=== PATIENT | female | born 1980 | race Caucasian/White ===

== ENCOUNTER 2017-07-31 10:56 | Emergency (ER) | payer MEDICAID ==
[2017-07-31 11:06] VITALS: BP 151/92
--- NOTE | 2017-07-31 12:09 | ED Physician Documentation ---
PD HPI HEENT FB - Chief complaint Chief Complaint: Heent - History obtained from History obtained from: Patient - History of Present Illness Timing - onset: Other (She has a long history of nasal polyps, multiple surgeries for same. They slowly grow back and as they grow back she gets congested and she gets severe headaches. Over the last months she has developed facial pain especially on the right from nasal polyps. She congested from allergies but does not feel sick per se, no fevers.) Review of Systems Constitutional: denies: Fever, Chills, Myalgias Ears: denies: Loss of hearing, Ear pain, Drainage/discharge Nose: reports: Rhinorrhea / runny nose, Sinus pressure / pain. 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 : None HEENT: None, Other Psych: None Musculoskeletal: None Derm: None - Past Surgical History Past Surgical History: Yes /MANAGER MERCHANDISING: Tubal ligation HEENT: Other - Present Medications Home Medications: Ambulatory Orders Medication Instructions Recorded Confirmed Cetirizine [ZyrTEC] 10 07/31/17 HYDROcod/ACETAM 5/325 [[place] 5/325] 1 - 2 ea PO Q6H PRN #15 tablet 07/31/17 Varenicline Tartrate [Chantix] 07/31/17 predniSONE [Deltasone] 20 mg PO [id number] #21 tab 07/31/17 - Allergies Allergies/Adverse Reactions: Allergies Allergy/AdvReac Type Severity Reaction Status Date / Time aspirin Allergy Severe Anaphylaxis Verified 07/31/17 11:06 NSAIDS (Non-Steroidal Allergy Severe Anaphylaxis Verified 07/31/17 11:06 Anti-Inflamma varenicline tartrate * Allergy Severe Blisters Verified 07/31/17 11:06 [From Chantix] - Social History Does the pt smoke?: Yes Smoking Status: Current every day smoker Does the pt drink ETOH?: No Does the pt have substance abuse?: No - Immunizations Immunizations are current?: Yes - POLST Patient has POLST: No PD ED PE NORMAL - Vitals Vital signs reviewed: Yes - General General: Alert and oriented X 3, No acute distress - HEENT HEENT: Other (She is sniffily and clearly has occlusive nasal polyps with mild facial swelling over the right nasal bridge. I cannot see any passageway for air or secretions on the right really. There is a small passageway for air on the left.) - Neck Neck: Supple, no meningeal sign, No bony TTP - Neuro Neuro: Alert and oriented X 3, Normal speech Results - Vitals Vitals: Vital Signs - 24 hr 07/31/17 11:03 Temperature 36.5 C Heart Rate 98 Respiratory 16 Rate Blood Pressure 151/92 H O2 Saturation 99 Oxygen O2 Source Room air Departure - Departure Disposition: Home, Self Care Clinical Impression: Nasal polyposis Condition: Good Record reviewed to determine appropriate education?: Yes Prescriptions: HYDROcod/ACETAM 5/325 [[place] 5/325] 1 - 2 ea PO Q6H PRN #15 tablet PRN Reason: Pain predniSONE [Deltasone] 20 mg PO [id number] #21 tab Comments: Return if worse or if new symptoms develop., Follow-up with an ear nose and throat physician, the closest is in [place], there are number is [phone]. Do not drink or drive while taking narcotic pain medication. Note that many narcotic pain relievers also contain Tylenol/acetaminophen. Please ensure that your total dose of acetaminophen from all sources does not exceed 3 g (3000 mg) per day. You may get constipated while on this medication. Take a stool softener such as Colace twice a day while you are on it. Also add an [id number] laxative such as senna or MiraLAX on any day that you do not have a bowel movement. If you received a narcotic pain medication or sedative while in the emergency department, do not drive for the next 24 hours. Your blood pressure was elevated today on check into the emergency department. This does not mean that you have hypertension, it is a common phenomenon to come to the emergency department and have elevated blood pressure. I recommend that you see your primary care physician within the week to have it rechecked when you are feeling better.
== END 2017-07-31 12:40 | disposition home or self-care (01) ==
LOC: ED 10:56
DX: J33.9 Nasal polyp, unspecified (principal); R03.0 Elevated blood-pressure reading, without diagnosis of hypertension; K21.9 Gastro-esophageal reflux disease without esophagitis; Z87.11 Personal history of peptic ulcer disease; F17.200 Nicotine dependence, unspecified, uncomplicated
CPT/HCPCS: 99283

== ENCOUNTER 2018-01-30 08:00 | Outpatient (CLI) | payer MEDICAID ==
[2018-01-30 12:30] LABS: BILIRUBIN,URINE NEGATIVE (NEGATIVE); GLUCOSE, URINE (UA) NEGATIVE (NEGATIVE); KETONES,URINE (UA) NEGATIVE (NEGATIVE); LEUKOCYTE ESTERASE, URINE SMALL (NEGATIVE); NITRITE,URINE NEGATIVE (NEGATIVE); OCCULT BLOOD,URINE TRACE-INTA (NEGATIVE); PROTEIN,URINE NEGATIVE (NEGATIVE); UROBILINOGEN,URINE 0.2 (NORMAL) E.U./dL (NORMAL)
[2018-01-30 12:53] LABS: BACTERIA,URINE None Seen /HPF (None Seen); CLARITY,URINE CLEAR (CLEAR); RBC,URINE 0-5 /HPF (0-5); SQUAMOUS EPITHELIAL CELL,UR FEW Squamous (<= Few)
== END 2018-01-30 08:01 | disposition home or self-care (01) ==
LOC: LAB.R 08:00
PROVIDERS: ATTEND Physician Assistant Medical
DX: R30.0 Dysuria (principal)
CPT/HCPCS: 81001; 87086

== ENCOUNTER 2018-02-09 10:18 | Emergency (ER) | payer MEDICAID ==
[2018-02-09] MEDS ORDERED: LORazepam 2 MG/ML VIAL ONE (10:40)
[2018-02-09] MEDS ORDERED: LORazepam 2 MG/ML VIAL IM STA (10:41)
--- NOTE | 2018-02-09 10:44 | ED Physician Documentation ---
PD HPI CHEST PAIN - Stated complaint Stated Complaint: CHEST PX/ARM WEAKNESS - Chief complaint Chief Complaint: Cardiac - History obtained from History obtained from: Patient, Friend - History of Present Illness Timing - onset: How many days ago (3) Timing - onset during: Rest Timing - duration: Days (3) Timing - details: Gradual onset, Still present, Waxing and waning Quality: Pressure, Tightness Location: Substernal Radiation: Left upper extremity, Right upper extremity Improved by: Rest Associated symptoms: Shortness of air Similar symptoms before: Has not had sx before Recently seen: Not recently seen - Additional information Additional information: 37-year-old female has developed some chest pain substernal about 3 days ago and she attributed this to some shortness of breath as well. She has become anxious this morning and has come to the emergency department with central chest pain radiating to both arms. Review of Systems Constitutional: denies: Fever, Chills, Myalgias Eyes: denies: Decreased vision Ears: denies: Ear pain Nose: denies: Rhinorrhea / runny nose, Congestion Throat: denies: Sore throat Cardiac: reports: Chest pain / pressure. denies: Palpitations Respiratory: reports: Dyspnea. 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 HEENT: Other - Present Medications Home Medications: Ambulatory Orders Medication Instructions Recorded Confirmed Albuterol Sulf [Ventolin Hfa 1 - 2 puffs INH Q4HR PRN #1 inhaler 02/09/18 Inhaler] diphenhydrAMINE [Benadryl] 25 mg PO ONCE 02/09/18 02/09/18 predniSONE [Deltasone] 10 mg PO DAILY #26 tablet 02/09/18 - Allergies Allergies/Adverse Reactions: Allergies Allergy/AdvReac Type Severity Reaction Status Date / Time aspirin Allergy Severe Anaphylaxis Verified 02/09/18 10:24 NSAIDS (Non-Steroidal Allergy Severe Anaphylaxis Verified 02/09/18 10:24 Anti-Inflamma varenicline tartrate * Allergy Severe Blisters Ver[facility] 02/09/18 10:24 [facility] - Social History Does the pt smoke?: Yes Smoking Status: Current every day smoker Does the pt drink ETOH?: No Does the pt have substance abuse?: No - Immunizations Immunizations are current?: Yes - POLST Patient has POLST: No PD ED PE NORMAL - Vitals Vital signs reviewed: Yes (hypertensive ) - General General: Alert and oriented X 3, Well developed/nourished, Other (The patient is hyperventilating and apppears acutely anxious. ) - HEENT HEENT: Atraumatic, PERRL, EOMI - Neck Neck: Supple, no meningeal sign - Cardiac Cardiac: RRR, No murmur - Respiratory Respiratory: Clear bilaterally, Other (hyperventilating. ) - Abdomen Abdomen: Soft, Non tender - Back Back: No CVA TTP, No spinal TTP - Derm Derm: Normal color, Warm and dry, No rash - Extremities Extremities: No deformity, No edema - Neuro Neuro: Alert and oriented X 3, gauge checker 2-12 intact, No motor deficit, No sensory deficit, Normal speech Eye Opening: Spontaneous Motor: Obeys Commands Verbal: Oriented GCS Score: 15 - Psych Psych: Normal affect, Other (mood is anxoius. ) Results - Vitals Vitals: Vital Signs - 24 hr 02/09/18 02/09/18 02/09/18 10:20 11:25 13:10 Temperature 36.8 C Heart Rate 98 85 74 Respiratory 16 20 16 Rate Blood Pressure 146/107 H 134/82 H 125/72 O2 Saturation 99 98 96 02/09/18 02/09/18 15:19 15:24 Temperature 36.8 C Heart Rate 90 79 Respiratory 18 15 Rate Blood Pressure O2 Saturation 100 Oxygen O2 Source Room air - EKG (time done) 1026 Rate: Rate (enter#) (104) Rhythm: Sinus tachycardia Ischemia: Normal ST segments Compare to prior EKG: Old EKG unavailable Computer interpretation: Disagree with computer (The computer reads afib on a tracing with a lot of artifact from hyperventilation. The rhythm is clearly sinus. ) 1303 Rate: Rate (enter#) (73) Rhythm: NSR Compare to prior EKG: Changed from prior EKG (STP earlier today rate has decreased) Computer interpretation: Agree with computer - Labs Labs: Laboratory Tests 02/09/18 02/09/18 02/09/18 11:05 11:05 11:05 WBC 15.9 H RBC 4.55 Hgb 13.9 Hct 40.4 MCV 88.9 MCH 30.5 MCHC 34.3 RDW 13.4 Plt Count 273 MPV 7.6 L Neut # (Auto) 10.9 H Lymph # (Auto) 4.1 H [place] # (Auto) 0.6 Eos # (Auto) 0.3 Baso # (Auto) 0.0 Absolute Nucleated RBC 0.01 Nucleated RBC % 0.0 D-Dimer Sodium 136 Potassium 3.7 Chloride 101 Carbon Dioxide 25 Anion Gap 10.0 BUN 14 Creatinine 0.8 Estimated GFR (MDRD) 80 L Glucose 124 H Calcium 9.1 Total Bilirubin 0.3 AST 23 ALT 32 Alkaline Phosphatase 78 Troponin I 0.04 Total Protein 7.3 Albumin 4.0 Globulin 3.3 Albumin/Globulin Ratio 1.2 Lipase 27 02/09/18 02/09/18 11:35 13:13 WBC RBC Hgb Hct MCV MCH MCHC RDW Plt Count MPV Neut # (Auto) Lymph # (Auto) [place] # (Auto) Eos # (Auto) Baso # (Auto) Absolute Nucleated RBC Nucleated RBC % D-Dimer < 200.0 L Sodium Potassium Chloride Carbon Dioxide Anion Gap BUN Creatinine Estimated GFR (MDRD) Glucose Calcium Total Bilirubin AST ALT Alkaline Phosphatase Troponin I < 0.04 Total Protein Albumin Globulin Albumin/Globulin Ratio Lipase - Rads (name of study) CT angio chest Radiology: Prelim report reviewed (Impression: 1. No CT evidence of pulmonary embolism. 2 Lungs clear except for some minimal lower lobe atelectasis/scarring.), EMP read indepedently, See rad report PD MEDICAL DECISION MAKING - ED course Complexity details: reviewed old records, reviewed results, re-evaluated patient, considered differential, d/w patient, d/w family ED course: 37-year-old female with a history of asthma is coming today with acute anterior chest pain radiating to both arms. She has had some of this pain over the past 3 days and today the pain is significantly worse and she is become anxious about it. She comes into the emergency department hyperventilating and feeling that she cannot breathe. Her presentation is dramatic and she is much improved after 2mg of ativan IM. Initial diagnostics are unremarkable with normal EKG, trop X 2 and CXR. I suspect that her pain is related to subclinical asthma and related and chest wall pain. A CT Ango of the chest is obtained which does demonstrate some atelectasis and with this information she is administered dexamethasone 10 mg orally and a DuoNeb with pre-and post peak flows. The patient has some relief with the duoneb treatment and is able to give further history about her polyps and these are bothering her more than usual. We will put her on a course of prednisone and have her follow up with ENT. - Sepsis Event Vital Signs: Vital Signs - 24 hr 02/09/18 02/09/18 02/09/18 10:20 11:25 13:10 Temperature 36.8 C Heart Rate 98 85 74 Respiratory 16 20 16 Rate Blood Pressure 146/107 H 134/82 H 125/72 O2 Saturation 99 98 96 02/09/18 02/09/18 15:19 15:24 Temperature 36.8 C Heart Rate 90 79 Respiratory 18 15 Rate Blood Pressure O2 Saturation 100 Oxygen O2 Source Room air Departure - Departure Disposition: 01 Home, Self Care Clinical Impression: Nasal polyposis, Chest wall pain Condition: Stable Instructions: Polyps Nasal Tx, ED Strain Chest Wall Follow-Up: Zina Hunter DNP [Primary Care Provider] - [facility] [Provider Group] Prescriptions: Albuterol Sulf [Ventolin Hfa Inhaler] 1 - 2 puffs INH Q4HR PRN #1 inhaler PRN Reason: Shortness Of Air/Wheezing predniSONE [Deltasone] 10 mg PO DAILY #26 tablet Comments: Today it appears the pain you are having your chest is related to not being able to breathe well. The prednisone should help a lot with this and I recommend that you try nasacort for your polyps.
[2018-02-09 11:19] LABS: BASOPHILS % (AUTO) 0.2 %; EOSINOPHILS # (AUTO) 0.3 10^3/uL (0.0-0.7); EOSINOPHILS % (AUTO) 1.9 %; HGB - HEMOGLOBIN 13.9 g/dL (12.0-16.0); LYMPHOCYTES # (AUTO) 4.1 10^3/uL (1.5-3.5); LYMPHOCYTES % (AUTO) 25.6 %; MEAN CORPUSCULAR HEMOGLOBIN 30.5 pg (27.0-31.0); MEAN CORPUSCULAR HGB CONC 34.3 g/dL (32.0-36.0); MEAN CORPUSCULAR VOLUME 88.9 fL (81.0-99.0); MEAN PLATELET VOLUME 7.6 fL (7.9-10.8); MONOCYTES # (AUTO) 0.6 10^3/uL (0.0-1.0); MONOCYTES % (AUTO) 3.6 %; NEUTROPHILS # (AUTO) 10.9 10^3/uL (1.5-6.6); NEUTROPHILS % (AUTO) 68.7 %; PLT - PLATELET COUNT 273 10^3/uL (130-450); RED BLOOD COUNT 4.55 10^6/uL (4.20-5.40); RED CELL DISTRIBUTION WIDTH 13.4 % (12.0-15.0); WHITE BLOOD COUNT 15.9 x10^3/uL (4.8-10.8)
[2018-02-09 11:34] LABS: ALBUMIN/GLOBULIN RATIO 1.2 (1.0-2.2); BILIRUBIN,TOTAL 0.3 mg/dL (0.2-1.0); CALCIUM 9.1 mg/dL (8.5-10.3); CREATININE 0.8 mg/dL (0.4-1.0); TOTAL PROTEIN 7.3 g/dL (6.7-8.2)
[2018-02-09 13:12] VITALS: BP 125/72
--- NOTE | 2018-02-09 13:32 | XRAY Report ---
Reason: chest pain Procedure Date: 02/09/2018 Accession Number: [id number] / [id number] Procedure: XR - Chest 2 View X-Ray CPT Code: 76699 FULL RESULT: EXAM: CHEST RADIOGRAPHY EXAM DATE: 02/09/2018 01:24 PM. CLINICAL HISTORY: Chest pain. COMPARISON: XR ACUTE ABDOMEN SERIES 03/23/2009 7:55 PM. TECHNIQUE: 2 views. FINDINGS: Lungs/Pleura: No focal opacities evident. No pleural effusion. No pneumothorax. Normal volumes. Mediastinum: Heart and mediastinal contours are unremarkable. Other: None. IMPRESSION: Normal 2-view chest radiography for age and body habitus. RADIA
[2018-02-09] MEDS ORDERED: IOPAMIDOL-300 100 ML VIAL ONE (14:21)
[2018-02-09] MEDS ORDERED: IOPAMIDOL-300 100 ML VIAL IVP ONE (14:51)
--- NOTE | 2018-02-09 15:07 | CT Report ---
Reason: anterior chest pain soa Procedure Date: 02/09/2018 Accession Number: [id number] / [id number] Procedure: CT - Chest Angio (PE) CPT Code: FULL RESULT: EXAM: CT ANGIOGRAM CHEST EXAM DATE: 02/09/2018 02:50 PM. CLINICAL HISTORY: Anterior chest pain and shortness of breath. COMPARISON: CHEST 2 VIEW 02/09/2018 1:16 PM. TECHNIQUE: Routine helical imaging was performed through the chest in the pulmonary arterial phase. IV Contrast: 100 cc Isovue-300. Reconstructions: Coronal 3-D MIP reconstructions.Sagittal and coronal. In accordance with CT protocol optimization, one or more of the following dose reduction techniques were utilized for this exam: automated exposure control, adjustment of mA and/or KV based on patient size, or use of iterative reconstructive technique. FINDINGS: Pulmonary Arteries: Diagnostic quality: Adequate through the segmental arteries. No evidence for acute or chronic pulmonary emboli. RV/LV is within normal limits. There is no interventricular septal bowing. There is no reflux of contrast material in the IVC. Lungs/Pleura: Minimal pulmonary blebs in the lung bases. Minimal lower lobe atelectasis /scarring. No focal infiltrate or effusion. Mediastinum: Normal. No cardiac enlargement or adenopathy. Thoracic Aorta: Unremarkable. Upper Abdomen: Unremarkable. Other: None. IMPRESSION: 1. No CT evidence of pulmonary embolism. 2. Lungs clear except for some minimal lower lobe atelectasis/scarring. RADIA
[2018-02-09] MEDS ORDERED: IPRATROPIUM/ALBUTEROL 3 ML NEB INH STA (15:14)
[2018-02-09] MEDS ORDERED: DEXAMETHASONE 10 MG/ML VIAL PO STA (15:14)
== END 2018-02-09 16:18 | disposition home or self-care (01) ==
LOC: ED 10:18
DX: J33.9 Nasal polyp, unspecified (principal); R07.89 Other chest pain; R06.02 Shortness of breath; R00.0 Tachycardia, unspecified; F17.200 Nicotine dependence, unspecified, uncomplicated
CPT/HCPCS: 36415; 71046; 71275; 80053; 83690; 84484; 85025; 85379; 93005; 93010; 94640; 96372; 99283; 99284; J2060; Q9967; 87275; 87276

== ENCOUNTER 2018-02-10 19:03 | Emergency (ER) | payer MEDICAID ==
--- NOTE | 2018-02-10 20:58 | ED Physician Documentation ---
PD HPI SKIN - Stated complaint Stated Complaint: HOTFACE/RASH POSS ALLERGIC RACT - Chief complaint Chief Complaint: Allergic Rx - History obtained from History obtained from: Patient - History of Present Illness Timing - onset: Yesterday (started feeling flush and some itching while in ED and just after. Persistent feeling of flush/hot overnight, and having itching feeling today, worse this evening. Feeling wheezing last couple of hours.) Timing - duration: Days (1) Timing - details: Gradual onset, Still present Location: Bodywide (feeling of itching, but no rash per se.) Associated symptoms: Dyspnea. No: Fever, Myalgias, Headache, N/V/D Contributing factors: Other (seen in ER yesterday with CT with contrast, and also dose ativan. No NSAIDs.) Similar symptoms before: Has not had sx before Recently seen: Emergency Dept Review of Systems Constitutional: denies: Fever, Chills Nose: denies: Rhinorrhea / runny nose, Congestion Throat: denies: Sore throat Cardiac: denies: Chest pain / pressure Respiratory: reports: Dyspnea, Wheezing. 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 HEENT: Other - Present Medications Home Medications: Ambulatory Orders Medication Instructions Recorded Confirmed Albuterol Sulf [Ventolin Hfa 1 - 2 puffs INH Q4HR PRN #1 inhaler 02/09/18 Inhaler] diphenhydrAMINE [Benadryl] 25 mg PO ONCE 02/09/18 02/09/18 predniSONE [Deltasone] 10 mg PO DAILY #26 tablet 02/09/18 - Allergies Allergies/Adverse Reactions: Allergies Allergy/AdvReac Type Severity Reaction Status Date / Time aspirin Allergy Severe Anaphylaxis Verified 02/09/18 10:24 NSAIDS (Non-Steroidal Allergy Severe Anaphylaxis Verified 02/09/18 10:24 Anti-Inflamma varenicline tartrate * Allergy Severe Blisters Verified 02/09/18 10:24 [From Chantix] - Social History Does the pt smoke?: Yes Smoking Status: Current every day smoker Does the pt drink ETOH?: No Does the pt have substance abuse?: No - Immunizations Immunizations are current?: Yes - POLST Patient has POLST: No PD ED PE NORMAL - Vitals Vital signs reviewed: Yes - General General: Alert and oriented X 3, Well developed/nourished, Other (appears uncomfortable and having quicker breathing, and forceful expiration with wheezing. ) - HEENT HEENT: Moist mucous membranes, Pharynx benign (no visible edema of throat nor uvula. ) - Neck Neck: Supple, no meningeal sign, No adenopathy - Cardiac Cardiac: RRR, No murmur - Respiratory Respiratory: No: Clear bilaterally (upper airway wheezing sounds with expiration. Peripheral not hearing wheezes. ) Results - Vitals Vitals: Vital Signs - 24 hr 02/10/18 02/10/18 02/10/18 19:05 21:05 21:30 Temperature 36.8 C 36.7 C Heart Rate 101 H 100 103 H Respiratory 18 22 29 H Rate Blood Pressure 147/93 H O2 Saturation 95 99 02/10/18 02/10/18 21:40 22:05 Temperature 36.8 C Heart Rate 95 86 Respiratory 24 16 Rate Blood Pressure 153/86 H O2 Saturation 98 Oxygen O2 Source Room air PD MEDICAL DECISION MAKING - ED course Complexity details: re-evaluated patient (improved with meds and neb treatment. Seems delayed for dye reaction from yesterday but could be. Unlikely from Ativan yesterday. No other new meds nor foods. ), considered differential (having feeling of flushing and itching, without obvious hives. Has expiratory wheezing with labored breathing in upper airway. No peripheral wheezing heard. ), d/w patient - Sepsis Event Vital Signs: Vital Signs - 24 hr 02/10/18 02/10/18 02/10/18 19:05 21:05 21:30 Temperature 36.8 C 36.7 C Heart Rate 101 H 100 103 H Respiratory 18 22 29 H Rate Blood Pressure 147/93 H O2 Saturation 95 99 02/10/18 02/10/18 21:40 22:05 Temperature 36.8 C Heart Rate 95 86 Respiratory 24 16 Rate Blood Pressure 153/86 H O2 Saturation 98 Oxygen O2 Source Room air Departure - Departure Disposition: 01 Home, Self Care Clinical Impression: Allergic reaction Qualifiers: Encounter type: initial encounter Qualified Code(s): T78.40XA - Allergy, unspecified, initial encounter Condition: Stable Record reviewed to determine appropriate education?: Yes Instructions: ED Allergic Reaction General Other Follow-Up: Zina Hunter DNP [Primary Care Provider] - Comments: Presume this was a delayed reaction to the iodine though other triggers may have caused it. At this point continue the prednisone that you had been taking. Add cetirizine antihistamine daily for the next week. Use Benadryl every 4-6 hours if needed for some itchiness. Recheck if not fully improved however over the next day or 2 at most. If you have persistent symptoms, the consideration would be a new allergy to something else currently inapparent. Discharge Date/Time: 02/10/18 22:45
[2018-02-10] MEDS ORDERED: DEXAMETHASONE 10 MG/ML VIAL IVP STA (21:12)
[2018-02-10] MEDS ORDERED: ALBUTEROL NEB 2.5 MG/3 ML INH STA (21:12)
[2018-02-10] MEDS ORDERED: diphenhydrAMINE INJ 50 MG/ML VIAL IVP STA (21:12)
[2018-02-10] MEDS ORDERED: FAMOTIDINE 20 MG/2 ML VIAL IVP STA (21:13)
[2018-02-10] MEDS ORDERED: RACEPINEPHRINE 2.25% NEB INH ONE (21:26)
[2018-02-10] MEDS ORDERED: RACEPINEPHRINE 2.25% NEB INH STA (21:30)
[2018-02-10 22:07] VITALS: BP 153/86
[2018-02-10] MEDS ORDERED: CETIRIZINE 10 MG TABLET PO STA (22:36)
== END 2018-02-10 22:45 | disposition home or self-care (01) ==
LOC: ED 19:03
DX: T78.40XA Allergy, unspecified, initial encounter (principal); X58.XXXA Exposure to other specified factors, initial encounter; F17.200 Nicotine dependence, unspecified, uncomplicated; R06.2 Wheezing
CPT/HCPCS: 94640; 96374; 96375; 99282; 99283; A9270; J1200

== ENCOUNTER 2018-05-16 13:27 | Emergency (ER) | payer MEDICAID ==
[2018-05-16] MEDS ORDERED: IPRATROPIUM/ALBUTEROL 3 ML NEB INH STA ×2 (14:15→14:39)
[2018-05-16] MEDS ORDERED: predniSONE 20 MG TABLET PO STA (14:16)
--- NOTE | 2018-05-16 14:20 | ED Physician Documentation ---
PD HPI URI - Stated complaint Stated Complaint: SOA - Chief complaint Chief Complaint: Resp - History obtained from History obtained from: Patient - History of Present Illness Timing - onset: Today Timing details: Gradual onset, Still present Pain level max: 0 Pain level now: 0 Associated symptoms: Nasal congestion, Dry cough. No: Fever, Chills, Sweats, Ear pain, Sore throat, Chest pain, Dyspnea, Bilateral edema Contributing factors: COPD / asthma. No: Sick contact Improves by: MDI/nebulizer Worsened by: Other Similar symptoms before: Work up / diagnostics, Has not had sx before Recently seen: Not recently seen - Additional information Additional information: 37-year-old female with history of asthma, Pneumonia last February and treated with Z-Neymar and nasal polyps here with complaint of coughing and runny nose since yesterday and today shortness of breath and was wheezing. Patient stated she took her inhaler but did not help. Patient states she has bilateral nasal polyps which also affects her breathing. She had seen an ENT and there is plan of surgery soon.Patient denies any control pills. Patient states was in [place] for a few days and had returned last May 08. Denies any immobility. Review of Systems Ten Systems: 10 systems reviewed and negative Constitutional: denies: Fever, Chills, Myalgias Nose: reports: Rhinorrhea / runny nose, Congestion Throat: denies: Sore throat Cardiac: denies: Chest pain / pressure Respiratory: reports: Dyspnea, Cough, Wheezing. 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 HEENT: Other - Present Medications Home Medications: Ambulatory Orders Medication Instructions Recorded Confirmed Albuterol Sulf [Ventolin Hfa 1 - 2 puffs INH Q4HR PRN #1 inhaler 02/09/18 Inhaler] predniSONE [Prednisone] 40 mg PO DAILY 4 Days #8 tablet 05/16/18 - Allergies Allergies/Adverse Reactions: Allergies Allergy/AdvReac Type Severity Reaction Status Date / Time aspirin Allergy Severe Anaphylaxis Verified 05/16/18 13:42 NSAIDS (Non-Steroidal Allergy Severe Anaphylaxis Verified 05/16/18 13:42 Anti-Inflamma varenicline tartrate * Allergy Severe Blisters Verified 05/16/18 13:42 [From Chantix] - Social History Does the pt smoke?: Yes Smoking Status: Current every day smoker Does the pt drink ETOH?: No Does the pt have substance abuse?: No - Immunizations Immunizations are current?: Yes - POLST Patient has POLST: No PD ED PE NORMAL - Vitals Vital signs reviewed: Yes - General General: Alert and oriented X 3, No acute distress, Well developed/nourished - HEENT HEENT: Moist mucous membranes, Other (Positive erythema of posterior pharynx and uvula. No exudate.Bilateral nares with clear secretions. Left small nasal polyps noted) - Neck Neck: Supple, no meningeal sign - Cardiac Cardiac: RRR, No murmur - Respiratory Respiratory: No respiratory distress, Other (Bilateral expiratory wheezing, scattered.) - Abdomen Abdomen: Normal bowel sounds, Soft, Non tender, Non distended - Derm Derm: Normal color, Warm and dry - Extremities Extremities: No deformity, No tenderness to palpate, Normal ROM s pain, No edema - Neuro Neuro: Alert and oriented X 3 - Psych Psych: Normal mood, Normal affect Results - Vitals Vitals: Vital Signs - 24 hr 05/16/18 05/16/18 05/16/18 13:39 14:21 15:00 Temperature 36.8 C Heart Rate 94 90 86 Respiratory 20 16 16 Rate Blood Pressure 135/78 H O2 Saturation 96 05/16/18 15:19 Temperature 37.0 C Heart Rate 88 Respiratory 18 Rate Blood Pressure 145/76 H O2 Saturation 98 Oxygen O2 Source Room air - EKG (time done) 1332 Rate: Rate (enter#) (96 ) Rhythm: NSR [place]: Normal Intervals: Normal DC QRS: Normal Ischemia: Normal ST segments - Labs Labs: Laboratory Tests 05/16/18 05/16/18 14:20 14:20 Influenza A (Rapid) Negative Influenza B (Rapid) Negative Group A Strep Rapid Negative PD MEDICAL DECISION MAKING - ED course Complexity details: re-evaluated patient, considered differential (Asthma exacerbation, upper respiratory infection, influenza, strep, nasal polyps), d/w patient ED course: 1442 patient's RN stated patient is requesting for another DuoNeb. 1521 Patient informed of test results. Patient states feeling much better and ready to go home. Lungs clear to auscultation. Patient denied acute distress and nontoxic- appearing. We will discharged on prednisone. Patient states still has albuterol inhaler at home. Departure - Departure Disposition: , Self Care Clinical Impression: Asthma Qualifiers: Asthma severity: mild Asthma persistence: intermittent Asthma complication type: with acute exacerbation Qualified Code(s): J45.21 - Mild intermittent asthma with (acute) exacerbation Condition: Stable Instructions: Asthma Dc Prescriptions: predniSONE [Prednisone] 40 mg PO DAILY 4 Days #8 tablet Comments: Use your inhaler as prescribed and take the prednisone beginning tomorrow May 17 as prescribed. Keep your nasal surgery appointment as scheduled. Follow-up with your primary doctor this week for reevaluation. If worse return to the emergency room.
[2018-05-16 15:21] VITALS: BP 145/76
== END 2018-05-16 15:33 | disposition home or self-care (01) ==
LOC: ED 13:27
DX: J45.21 Mild intermittent asthma with (acute) exacerbation (principal); J33.9 Nasal polyp, unspecified; F17.200 Nicotine dependence, unspecified, uncomplicated
CPT/HCPCS: 87070; 87275; 87276; 87430; 93005; 94640; 99283; J7512

== ENCOUNTER 2018-08-06 10:50 | Emergency (ER) | payer MEDICAID ==
[2018-08-06] MEDS ORDERED: DEXAMETHASONE 10 MG/ML VIAL PO STA (11:02)
[2018-08-06] MEDS ORDERED: IPRATROPIUM/ALBUTEROL 3 ML NEB INH STA (11:02)
--- NOTE | 2018-08-06 11:04 | ED Physician Documentation ---
PD HPI DYSPNEA - Stated complaint Stated Complaint: SOA - Chief complaint Chief Complaint: Resp - History obtained from History obtained from: Patient - History of Present Illness Timing - onset: How many weeks ago (1) Timing - onset during: Rest Timing - duration: Weeks (1) Timing - details: Gradual onset, Still present Inciting event(s): URI Improved by: Inhaler/neb Worsened by: Exertion Associated symptoms: Cough, Wheezing Similar symptoms before: Diagnosis (asthma) Recently seen: Clinic - Additional information Additional information: 37-year-old female has had a cough and congestion for the past week and she went into see her doctor yesterday with a lot of sinus congestion and was placed on 5 mg of prednisone for nasal polyps. At that time her ears were clear. This morning she is awoken with shortness of breath. She does have a history of asthma and has an inhaler that she has used with some success. 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 : None HEENT: None, Other Psych: None Musculoskeletal: None Derm: None - Past Surgical History Past 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 HEENT: Other - Present Medications Home Medications: Ambulatory Orders Medication Instructions Recorded Confirmed Albuterol Sulf [Ventolin Hfa 1 - 2 puffs INH Q4HR PRN #1 inhaler 02/09/18 Inhaler] predniSONE [Prednisone] 40 mg PO DAILY 4 Days #8 tablet 05/16/18 Amox/Clav 875/125 [Augmentin] 1 each PO Q12H #20 tablet 08/06/18 Fluconazole [Diflucan] 150 mg PO DAILY #1 tablet 08/06/18 predniSONE [Deltasone] 10 mg PO ONCE #26 tablet 08/06/18 - Allergies Allergies/Adverse Reactions: Allergies Allergy/AdvReac Type Severity Reaction Status Date / Time aspirin Allergy Severe Anaphylaxis Verified 08/06/18 11:02 NSAIDS (Non-Steroidal Allergy Severe Anaphylaxis Verified 08/06/18 11:02 Anti-Inflamma varenicline tartrate * Allergy Severe Blisters Verified 08/06/18 11:02 [From Chantix] - Social History Does the pt smoke?: Yes Smoking Status: Current every day smoker Does the pt drink ETOH?: No Does the pt have substance abuse?: No - Immunizations Immunizations are current?: Yes - POLST Patient has POLST: No PD ED PE NORMAL - Vitals Vital signs reviewed: Yes (tachy, tachypneic and hypertensive ) - General General: Alert and oriented X 3, Well developed/nourished - HEENT HEENT: Atraumatic, PERRL, EOMI, Other (The right TM is inflamed with indistinct landmarks. The left is mostly clear with some inflamation to the circumference. ) - Neck Neck: Supple, no meningeal sign, No bony TTP - Cardiac Cardiac: No murmur, Other (tachy ) - Respiratory Respiratory: Other (tachypneic with diminished breath sounds bilaterally. ) - Abdomen Abdomen: Soft, Non tender - Back Back: No CVA TTP, No spinal TTP - Derm Derm: Normal color, Warm and dry, No rash - Extremities Extremities: No deformity, No edema - Neuro Neuro: Alert and oriented X 3, manager code 2-12 intact, No motor deficit, No sensory deficit, Normal speech Eye Opening: Spontaneous Motor: Obeys Commands Verbal: Oriented GCS Score: 15 - Psych Psych: Normal mood, Normal affect Results - Vitals Vitals: Vital Signs - 24 hr 08/06/18 08/06/18 08/06/18 10:59 11:10 11:15 Temperature 36.1 C L Heart Rate 120 H 107 H 99 Respiratory 28 H 16 22 Rate Blood Pressure 161/139 H 172/107 H O2 Saturation 96 99 08/06/18 08/06/18 08/06/18 12:00 12:01 12:30 Temperature Heart Rate 99 98 96 Respiratory 20 16 16 Rate Blood Pressure 153/99 H 158/90 H O2 Saturation 96 96 Oxygen O2 Source Room air - Rads (name of study) 2 view chest Radiology: Prelim report reviewed (Impression: Normal two-view chest radiography.), EMP read indepedently, See rad report PD MEDICAL DECISION MAKING - ED course Complexity details: reviewed results, re-evaluated patient, considered differential, d/w patient ED course: 37-year-old female with acute respiratory distress with reactive airway is administered dexamethasone 10 mg orally and a DuoNeb treatment. She requires a second albuterol treatment and a third albuterol treatment each with successive improvement. She indicates that she has a significant problem with her nasal polyps and she will be seen an ear nose and throat next month regarding those. She also states that she has albuterol inhalers here and at home and her usual use of them is infrequent when she is well and frequent when she is sick. Departure - Departure Disposition: , Self Care Clinical Impression: Otitis media Qualifiers: Otitis media type: suppurative Chronicity: acute Laterality: bilateral Recurrence: not specified as recurrent Spontaneous tympanic membrane rupture: without spontaneous rupture Qualified Code(s): H66.003 - Acute suppurative otitis media without spontaneous rupture of ear drum, bilateral Asthma exacerbation Qualifiers: Asthma severity: mild Asthma persistence: intermittent Qualified Code(s): J45.21 - Mild intermittent asthma with (acute) exacerbation Condition: Stable Instructions: ED Reactive Airway Disease, ED Otitis Media Acute Adult Follow-Up: Zina Hunter DNP [Primary Care Provider] - Prescriptions: Amox/Clav 875/125 [Augmentin] 1 each PO Q12H #20 tablet Fluconazole [Diflucan] 150 mg PO DAILY #1 tablet predniSONE [Deltasone] 10 mg PO ONCE #26 tablet Forms: Activity restrictions
[2018-08-06] MEDS ORDERED: ALBUTEROL NEB 2.5 MG/3 ML INH ONE (12:11)
--- NOTE | 2018-08-06 12:17 | XRAY Report ---
Reason: soa Procedure Date: 08/06/2018 Accession Number: [id number] / [id number] Procedure: XR - Chest 2 View X-Ray CPT Code: 90800 FULL RESULT: EXAM: CHEST RADIOGRAPHY EXAM DATE: 08/06/2018 12:07 PM. CLINICAL HISTORY: Shortness of breath. COMPARISON: CHEST 2 VIEW 02/09/2018 1:16 PM. TECHNIQUE: 2 views. FINDINGS: Lungs/Pleura: No focal opacities evident. No pleural effusion. No pneumothorax. Normal volumes. Mediastinum: Heart and mediastinal contours are unremarkable. Other: None. IMPRESSION: Normal 2-view chest radiography. RADIA
[2018-08-06] MEDS ORDERED: ALBUTEROL NEB 2.5 MG/3 ML INH STA ×2 (12:23→13:03)
[2018-08-06 14:04] VITALS: BP 150/90
== END 2018-08-06 13:45 | disposition home or self-care (01) ==
LOC: ED 10:50
DX: J45.21 Mild intermittent asthma with (acute) exacerbation (principal); H66.003 Acute suppurative otitis media without spontaneous rupture of ear drum, bilateral; F17.200 Nicotine dependence, unspecified, uncomplicated
CPT/HCPCS: 71046; 94640; 99283

== ENCOUNTER 2018-08-16 09:42 | Emergency (ER) | payer MEDICAID ==
[2018-08-16 10:07] LABS: BILIRUBIN,URINE NEGATIVE (NEGATIVE); GLUCOSE, URINE (UA) NEGATIVE (NEGATIVE); KETONES,URINE (UA) NEGATIVE (NEGATIVE); LEUKOCYTE ESTERASE, URINE SMALL (NEGATIVE); NITRITE,URINE NEGATIVE (NEGATIVE); OCCULT BLOOD,URINE TRACE-LYSE (NEGATIVE); PH,URINE 5.5 PH (5.0-7.5); PROTEIN,URINE NEGATIVE (NEGATIVE); UROBILINOGEN,URINE 0.2 (NORMAL) E.U./dL (NORMAL)
[2018-08-16 10:10] LABS: CLARITY,URINE SL. CLOUDY (CLEAR)
[2018-08-16 10:12] LABS: BACTERIA,URINE Rare /HPF (None Seen); HCG UR QUAL NEGATIVE; RBC,URINE 0-5 /HPF (0-5); SQUAMOUS EPITHELIAL CELL,UR MANY Squamous (<= Few)
[2018-08-16 10:24] LABS: BASOPHILS # (AUTO) 0.2 10^3/uL (0.0-0.1); BASOPHILS % (AUTO) 1.2 %; EOSINOPHILS # (AUTO) 0.3 10^3/uL (0.0-0.7); EOSINOPHILS % (AUTO) 1.6 %; HGB - HEMOGLOBIN 14.9 g/dL (12.0-16.0); LYMPHOCYTES # (AUTO) 4.5 10^3/uL (1.5-3.5); LYMPHOCYTES % (AUTO) 23.1 %; MEAN CORPUSCULAR HEMOGLOBIN 31.4 pg (27.0-31.0); MEAN CORPUSCULAR HGB CONC 34.4 g/dL (32.0-36.0); MEAN CORPUSCULAR VOLUME 91.4 fL (81.0-99.0); MEAN PLATELET VOLUME 7.2 fL (7.9-10.8); MONOCYTES # (AUTO) 0.7 10^3/uL (0.0-1.0); MONOCYTES % (AUTO) 3.6 %; NEUTROPHILS # (AUTO) 13.7 10^3/uL (1.5-6.6); NEUTROPHILS % (AUTO) 70.5 %; PLT - PLATELET COUNT 304 10^3/uL (130-450); RED BLOOD COUNT 4.74 10^6/uL (4.20-5.40); RED CELL DISTRIBUTION WIDTH 13.8 % (12.0-15.0); WHITE BLOOD COUNT 19.4 x10^3/uL (4.8-10.8)
[2018-08-16 10:37] LABS: ALBUMIN 4.1 g/dL (3.2-5.5); ALBUMIN/GLOBULIN RATIO 1.2 (1.0-2.2); BILIRUBIN,TOTAL 0.5 mg/dL (0.2-1.0); CALCIUM 9.6 mg/dL (8.5-10.3); CREATININE 0.8 mg/dL (0.4-1.0); TOTAL PROTEIN 7.6 g/dL (6.7-8.2)
--- NOTE | 2018-08-16 11:30 | ED Physician Documentation ---
PD HPI ABD PAIN - Stated complaint Stated Complaint: ABD PX - Chief complaint Chief Complaint: Abd Pain - History obtained from History obtained from: Patient - History of Present Illness Timing - onset: How many days ago (2-3) Timing - duration: Days (2-3) Timing - details: Abrupt onset (She had an onset of some right-sided mid to upper abdominal pain 2-3 days ago associated with some watery diarrhea. The diarrhea has decreased and is soft stool now but she continues with the pain to the right abdomen. She has some nausea but no vomiting. She states it does not really hurt anymore with eating. She denies any blood or melena in her stool. She has not had any prior similar episodes.) Quality: Cramping, Aching, Pain Location: RUQ Radiation: No: Lower back, Right flank Improved by: No: Eating Worsened by: Moving, Palpation. No: Eating, Breathing Associated symptoms: Nausea, Diarrhea. No: Fever, Vomiting, Constipation, Melena, Hematochezia, Near syncope / syncope Similar symptoms before: Has not had sx before Recently seen: Not recently seen Review of Systems Constitutional: reports: Chills, Myalgias. denies: Fever Nose: denies: Rhinorrhea / runny nose, Congestion Throat: denies: Sore throat Respiratory: denies: Cough GI: reports: Abdominal Pain, Nausea, Diarrhea. 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 HEENT: Other - Present Medications Home Medications: Ambulatory Orders Medication Instructions Recorded Confirmed Albuterol Sulf [Ventolin Hfa 1 - 2 puffs INH Q4HR PRN #1 inhaler 02/09/18 Inhaler] predniSONE [Prednisone] 40 mg PO DAILY 4 Days #8 tablet 05/16/18 Amox/Clav 875/125 [Augmentin] 1 each PO Q12H #20 tablet 08/06/18 Fluconazole [Diflucan] 150 mg PO DAILY #1 tablet 08/06/18 predniSONE [Deltasone] 10 mg PO ONCE #26 tablet 08/06/18 Hydrocodone/Acetaminophen [[place] 1 each PO Q6H PRN #15 tablet 08/16/18 5-325 Tablet] - Allergies Allergies/Adverse Reactions: Allergies Allergy/AdvReac Type Severity Reaction Status Date / Time aspirin Allergy Severe Anaphylaxis Verified 08/16/18 09:53 NSAIDS (Non-Steroidal Allergy Severe Anaphylaxis Verified 08/16/18 09:53 Anti-Inflamma varenicline tartrate * Allergy Severe Blisters Verified 08/16/18 09:53 [From Chantix] - Social History Does the pt smoke?: Yes Smoking Status: Current every day smoker Does the pt drink ETOH?: No Does the pt have substance abuse?: No - Immunizations Immunizations are current?: Yes - POLST Patient has POLST: No PD ED PE NORMAL - Vitals Vital signs reviewed: Yes - General General: Alert and oriented X 3, No acute distress, Well developed/nourished - HEENT HEENT: Moist mucous membranes, Pharynx benign - Neck Neck: Supple, no meningeal sign, No adenopathy - Cardiac Cardiac: RRR, No murmur - Respiratory Respiratory: Clear bilaterally - Abdomen Abdomen: Normal bowel sounds, Soft, Non distended, No organomegaly, Other (She is moderately obese. There is tenderness in the right upper quadrant to right mid abdomen with localized guarding. There is no percussion or rebound tenderness. The right lower quadrant itself is not focally tender. There is no CVA tenderness. There is no referred tenderness from the rest of the abdomen.) - Female Female : Deferred - Rectal Rectal: Deferred - Back Back: No CVA TTP - Derm Derm: Normal color, Warm and dry, No rash - Extremities Extremities: No tenderness to palpate, Normal ROM s pain, No edema, No calf tenderness / cord - Neuro Neuro: Alert and oriented X 3, No motor deficit, Normal speech Results - Vitals Vitals: Vital Signs - 24 hr 08/16/18 08/16/18 08/16/18 09:51 11:56 13:45 Temperature 36.6 C 36.5 C 36.4 C L Heart Rate 109 H 87 90 Respiratory 20 12 12 Rate Blood Pressure 148/101 H 124/89 H 143/90 H O2 Saturation 100 97 97 Oxygen O2 Source Room air - Labs Labs: Laboratory Tests 0308/16/18 08/16/18 09:51 09:51 10:10 WBC 19.4 H RBC 4.74 Hgb 14.9 Hct 43.3 MCV 91.4 MCH 31.4 H MCHC 34.4 RDW 13.8 Plt Count 304 MPV 7.2 L Neut # (Auto) 13.7 H Lymph # (Auto) 4.5 H Logan # (Auto) 0.7 Eos # (Auto) 0.3 Baso # (Auto) 0.2 H Absolute Nucleated RBC 0.00 Nucleated RBC % 0.0 Sodium Potassium Chloride Carbon Dioxide Anion Gap BUN Creatinine Estimated GFR (MDRD) Glucose Calcium Total Bilirubin AST ALT Alkaline Phosphatase Total Protein Albumin Globulin Albumin/Globulin Ratio Lipase Urine Color YELLOW Urine Clarity SL. CLOUDY Urine pH 5.5 Ur Specific [place] >=1.030 H >=1.030 H Urine Protein NEGATIVE Urine Glucose (UA) NEGATIVE Urine Ketones NEGATIVE Urine Occult Blood TRACE-LYSE Urine Nitrite NEGATIVE Urine Bilirubin NEGATIVE Urine Urobilinogen 0.2 (NORMAL) Ur Leukocyte Esterase SMALL H Urine RBC 0-5 Urine WBC 6-10 H Ur Squamous Epith Cells MANY Squamous H Urine Bacteria Rare Ur Microscopic Review INDICATED Urine Culture Comments NOT INDICATED Urine HCG, Qual NEGATIVE 08/16/18 10:10 WBC RBC Hgb Hct MCV MCH MCHC RDW Plt Count MPV Neut # (Auto) Lymph # (Auto) Logan # (Auto) Eos # (Auto) Baso # (Auto) Absolute Nucleated RBC Nucleated RBC % Sodium 135 Potassium 3.9 Chloride 102 Carbon Dioxide 24 Anion Gap 9.0 BUN 14 Creatinine 0.8 Estimated GFR (MDRD) 80 L Glucose 125 H Calcium 9.6 Total Bilirubin 0.5 AST 23 ALT 28 Alkaline Phosphatase 61 Total Protein 7.6 Albumin 4.1 Globulin 3.5 Albumin/Globulin Ratio 1.2 Lipase 31 Urine Color Urine Clarity Urine pH Ur Specific [place] Urine Protein Urine Glucose (UA) Urine Ketones Urine Occult Blood Urine Nitrite Urine Bilirubin Urine Urobilinogen Ur Leukocyte Esterase Urine RBC Urine WBC Ur Squamous Epith Cells Urine Bacteria Ur Microscopic Review Urine Culture Comments Urine HCG, Qual - Rads (name of study) RUQ U/S Radiology: Prelim report reviewed, EMP read contemporaneously, See rad report PD MEDICAL DECISION MAKING - ED course Complexity details: reviewed results (Your labs show a leukocytosis. Her liver enzymes and pancreatic enzymes are normal. Ultrasound did not show any acute abnormality. 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 We will shared decision with her was to get a CT scan. This was obtained and showed no acute abnormality either. At this point I would presume more of call: Irritation causing the pain. She is allergic to NSAIDs so we will treated with Tylenol and pain medicine if needed. Her stool is slowly firming up over the few days so I did not give a an T diarrheal per se. Given the improvement in the stool, I am less inclined to think of a significant enteritis such as the E. coli or C. difficile. No particular significant process is identified and she is comfortable going home with medication.), re-evaluated patient, considered differential (She is tender in the right upper abdomen associated with some diarrhea. This could be an intestinal virus. Consider local colonic inflammation such as colitis. In particular given her stature I would be concerned for gallstones. We will get labs and ultrasound. If that is inconclusive we can get CT scan.) Departure - Departure Disposition: 01 Home, Self Care Clinical Impression: Abdominal pain Qualifiers: Abdominal location: right upper quadrant Qualified Code(s): R10.11 - Right upper quadrant pain Condition: Stable Record reviewed to determine appropriate education?: Yes Instructions: ED Abdominal Pain Unkn Cause Follow-Up: Zina Hunter DNP [Primary Care Provider] - Prescriptions: Hydrocodone/Acetaminophen [[place] 5-325 Tablet] 1 each PO Q6H PRN #15 tablet PRN Reason: Pain Comments: There is no identified cause of the pain at this time. Presume it some intestinal pain causing some from some inflammation or such, associated with your recent diarrhea (like an intestinal virus). I would just try some Tylenol 4 times a day. Add pain medications as needed. Stay well-hydrated. Follow-up with your PMD or return here if not improved over the next several days or if you have worsening symptoms.
[2018-08-16] MEDS ORDERED: SODIUM CHLORIDE 0.9% 1,000 ML IV ONE ×2 (11:49→14:16)
[2018-08-16] MEDS ORDERED: HYDROmorphone 1 MG/ML CARPUJECT IVP STA ×2 (11:49→14:16)
[2018-08-16] MEDS ORDERED: ONDANSETRON 4 MG/2 ML VIAL IVP STA (11:49)
[2018-08-16 13:45] VITALS: BP 143/90
--- NOTE | 2018-08-16 14:26 | Ultrasound Report ---
Reason: RUQ pain for 3 days Procedure Date: 08/16/2018 Accession Number: [id number] / [id number] Procedure: US - Abdomen Limited CPT Code: FULL RESULT: EXAM: ABDOMEN ULTRASOUND LIMITED, RUQ EXAM DATE: 08/16/2018 01:59 PM. CLINICAL HISTORY: Right upper quadrant abdominal pain for 3 days. COMPARISON: None. TECHNIQUE: Real-time scanning was performed with static images obtained. FINDINGS: Liver: Liver is moderate to severely echogenic diffusely with respect to the right kidney. The right lobe is elongated measuring up to 20 cm. No focal masses or abnormal blood flow. Main portal vein flow: Hepatopetal. Gallbladder: A 4 mm anterior gallbladder neck polyp noted. No stones, sludge or wall thickening present. Patient is tender over the gallbladder. Biliary System: CBD measures 4 mm. No intrahepatic or extrahepatic ductal dilatation. Other: An exophytic right lower pole cyst measures up to 2.0 cm. No calculi or hydronephrosis. IMPRESSION: 1. 4 mm gallbladder wall polyp. 2. No clear sonographic evidence for cholecystitis or cholelithiasis. 3. Moderate to severely enlarged and fatty infiltrated liver. RADIA
[2018-08-16] MEDS ORDERED: IOPAMIDOL-300 100 ML VIAL ONE (14:27)
--- NOTE | 2018-08-16 15:08 | CT Report ---
Reason: right abd pain for 3 days; elevated WBC Procedure Date: 08/16/2018 Accession Number: [id number] / [id number] Procedure: CT - Abdomen/Pelvis WO CPT Code: FULL RESULT: EXAM: CT ABDOMEN AND PELVIS EXAM DATE: 08/16/2018 02:46 PM. CLINICAL HISTORY: Right abd pain for 3 days; elevated WBC. COMPARISONS: ABDOMEN LIMITED 08/16/2018 12:52 PM. TECHNIQUE: Routine helical CT imaging was performed through the abdomen and pelvis. IV contrast: None. Enteric contrast: No. Reconstructions: Coronal and sagittal. In accordance with CT protocol optimization, one or more of the following dose reduction techniques were utilized for this exam: automated exposure control, adjustment of mA and/or KV based on patient size, or use of iterative reconstructive technique. FINDINGS: Lung Bases: Unremarkable. Liver: Nonspecific region of Gallbladder/Bile Ducts: Unremarkable. Spleen: Normal. Pancreas: Normal. Adrenal Glands: Normal. Kidneys: Exophytic 21 mm right lower pole renal cortical hypodensity, likely corresponding to simple cyst seen by ultrasound of 08/16/2018. No hydronephrosis. No renal calculi. Ureters are non-distended, symmetric without convincing calculus Peritoneal Cavity/Bowel: No free air or free fluid. Scattered colonic diverticula. No mass or acute inflammatory process. No obstruction. The appendix is well visualized and normal. Pelvic Organs: Normal. The bladder and visualized pelvic organs are within normal limits. Vasculature: No aneurysms or other significant abnormality. Bones: No significant abnormality. Other: None. IMPRESSION: 1. No convincing acute abdominopelvic findings. 2. Other findings as noted above. RAD[facility]
== END 2018-08-16 15:42 | disposition home or self-care (01) ==
LOC: ED 09:42
DX: R10.11 Right upper quadrant pain (principal); R19.7 Diarrhea, unspecified; R11.0 Nausea; D72.829 Elevated white blood cell count, unspecified; F17.200 Nicotine dependence, unspecified, uncomplicated; Z88.8 Allergy status to other drugs, medicaments and biological substances
CPT/HCPCS: 36415; 74176; 76705; 80053; 81001; 81025; 83690; 85025; 96361; 96374; 96376; 99283; 99284; J1170; 81003; 87086

== ENCOUNTER 2018-09-12 07:53 | Emergency (ER) | payer MEDICAID ==
[2018-09-12 08:10] VITALS: BP 150/98
[2018-09-12] MEDS ORDERED: DEXAMETHASONE 10 MG/ML VIAL PO STA (08:59)
[2018-09-12] MEDS ORDERED: CHERRY SYRUP 10 ML UDC PO ONE (08:59)
--- NOTE | 2018-09-12 09:02 | ED Physician Documentation ---
PD HPI HEENT - Stated complaint Stated Complaint: L EAR PAIN/NOSE PAIN - Chief complaint Chief Complaint: Heent - History obtained from History obtained from: Patient - History of Present Illness Timing - onset: How many days ago (5) Timing - duration: Days (5) Timing - details: Gradual onset, Still present Location: Left ear, Sinuses Improves: Medication Worsens: Swalllowing Associated symptoms: Congestion, Rhinorrhea, Facial swelling, Cough Similar symptoms before: Diagnosis (nasal polyps and sinusitis) Recently seen: Clinic - Additional information Additional information: 37-year-old female with a history of nasal polyposis who has had 2 prior nasal polyp surgeries has active nasal polyps again and she was seen in the emergency department and treated for the nasal polyposis 1 month ago and following that she did have some issue with GI distress related to the Augmentin. She has now developed symptoms again with her nasal polyps extruding from her nose and distorting her face. She does have an appointment to see ENT in 3 days. She now has pain in her left ear and less pain in her right ear and a cough and she is unable to breathe through her nose. Review of Systems Constitutional: denies: Fever Eyes: denies: Decreased vision Ears: reports: Ear pain Nose: reports: Rhinorrhea / runny nose, Congestion, Sinus pressure / pain Throat: reports: Sore throat Cardiac: denies: Chest pain / pressure, Palpitations Respiratory: reports: Cough. denies: Dyspnea GI: denies: Vomiting PD PAST MEDICAL HISTORY - Past Medical History Past Medical History: No Cardiovascular: None Respiratory: Asthma Endocrine/Autoimmune: None GI: GERD, Ulcers TRANSPORT MEDIC: None : None HEENT: None, Other Psych: None Musculoskeletal: None Derm: None - Past Surgical History Past Surgical History: Yes /TRANSPORT MEDIC: Tubal ligation, Other HEENT: Other - Present Medications Home Medications: Ambulatory Orders Medication Instructions Recorded Confirmed Albuterol Sulf [Ventolin Hfa 1 - 2 puffs INH Q4HR PRN #1 inhaler 02/09/18 Inhaler] Azithromycin [Zithromax] 250 mg PO DAILY #6 tablet 09/12/18 predniSONE [Deltasone] 10 mg PO ONCE #26 tablet 09/12/18 - Allergies Allergies/Adverse Reactions: Allergies Allergy/AdvReac Type Severity Reaction Status Date / Time aspirin Allergy Severe Anaphylaxis Verified 09/12/18 08:10 NSAIDS (Non-Steroidal Allergy Severe Anaphylaxis Verified 09/12/18 08:10 Anti-Inflamma varenicline tartrate * Allergy Severe Blisters Verified 09/12/18 08:10 [From Chantix] - Social History Does the pt smoke?: Yes Smoking Status: Current every day smoker Does the pt drink ETOH?: No Does the pt have substance abuse?: No - Immunizations Immunizations are current?: Yes - POLST Patient has POLST: No PD ED PE NORMAL - Vitals Vital signs reviewed: Yes (hypertensive ) - General General: Alert and oriented X 3, No acute distress, Well developed/nourished - HEENT HEENT: Atraumatic, PERRL, EOMI, Pharynx benign, Other (There is facial distortion along the right margin of the nose secondary to swollen polyps in the nares. These are present bilaterally worse on the right. The TM on the left is retracted with minimal inflamation in the attic. The TM on the right is inflamed with distortion of the landmarks. ) - Neck Neck: Supple, no meningeal sign, No bony TTP - Cardiac Cardiac: RRR, No murmur - Respiratory Respiratory: No respiratory distress, Clear bilaterally - Abdomen Abdomen: Soft, Non tender - Derm Derm: Normal color, Warm and dry, No rash - Extremities Extremities: No deformity, No edema - Neuro Neuro: Alert and oriented X 3, forepart rasper 2-12 intact, No motor deficit, No sensory deficit, Normal speech Eye Opening: Spontaneous Motor: Obeys Commands Verbal: Oriented GCS Score: 15 - Psych Psych: Normal mood, Normal affect Results - Vitals Vitals: Vital Signs - 24 hr 09/12/18 08:08 Temperature 35.7 C L Heart Rate 91 Respiratory 20 Rate Blood Pressure 150/98 H O2 Saturation 98 Oxygen O2 Source Room air PD MEDICAL DECISION MAKING - ED course Complexity details: reviewed old records, considered differential, d/w patient ED course: 37-year-old female with a history of nasal polyposis has active inflamed polyps and she is administered dexamethasone 10 mg orally we will place her on some azithromycin as she has tolerated this previously and she does have follow-up with ENT 3 days time. She has failed topical nasal steroids. Departure - Departure Disposition: 01 Home, Self Care Clinical Impression: Nasal polyps Otitis media Qualifiers: Otitis media type: suppurative Chronicity: acute Laterality: right Recurrence: recurrent Spontaneous tympanic membrane rupture: without spontaneous rupture Qualified Code(s): H66.004 - Acute suppurative otitis media without spontaneous rupture of ear drum, recurrent, right ear Condition: Stable Instructions: ED Otitis Media Acute Adult, Polyps Nasal About Follow-Up: Zina Hunter DNP [Primary Care Provider] - Brenton Barrett MD [Physician No Access] - Prescriptions: Azithromycin [Zithromax] 250 mg PO DAILY #6 tablet predniSONE [Deltasone] 10 mg PO ONCE #26 tablet
== END 2018-09-12 09:18 | disposition home or self-care (01) ==
LOC: ED 07:53
DX: J33.9 Nasal polyp, unspecified (principal); H66.004 Acute suppurative otitis media without spontaneous rupture of ear drum, recurrent, right ear; F17.200 Nicotine dependence, unspecified, uncomplicated
CPT/HCPCS: 99283; A9270

== ENCOUNTER 2018-10-11 14:09 | Emergency (ER) | payer MEDICAID ==
[2018-10-11 14:19] VITALS: BP 146/103
--- NOTE | 2018-10-11 14:23 | ED Physician Documentation ---
History of Present Illness - Stated complaint Stated Complaint: THROAT PX - Chief complaint Chief Complaint: Heent - History obtained from History obtained from: Patient - History of Present Illness Timing: How many days ago (3) Pain level max: 6 Pain level now: 5 - Additonal information Additional information: 37-year-old female presents to the emergency department with fevers, nasal congestion and sore throat for the past 3 days. Son tested positive for strep recently. Has not taken anything for this at home. Worse with swallowing. Nothing makes it better. 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 : None HEENT: None, Other Psych: None Musculoskeletal: None Derm: None - Past Surgical History Past Surgical History: Yes /PRESS CLEANER: Tubal ligation, Other HEENT: Other - Present Medications Home Medications: Ambulatory Orders Medication Instructions Recorded Confirmed Cetirizine HCl/Pseudoephedrine 1 each PO BID PRN #30 tab.er.12h 10/11/18 [Zyrtec-D Tablet] Penicillin V Potassium 500 mg PO Q6HR #40 tablet 10/11/18 - Allergies Allergies/Adverse Reactions: Allergies Allergy/AdvReac Type Severity Reaction Status Date / Time aspirin Allergy Severe Anaphylaxis Verified 10/11/18 14:19 NSAIDS (Non-Steroidal Allergy Severe Anaphylaxis Verified 10/11/18 14:19 Anti-Inflamma varenicline tartrate * Allergy Severe Blisters Verified 10/11/18 14:19 [From Chantix] - Social History Does the pt smoke?: Yes Smoking Status: Current every day smoker Does the pt drink ETOH?: No Does the pt have substance abuse?: No - Immunizations Immunizations are current?: Yes - POLST Patient has POLST: No PD ED PE NORMAL - Vitals Vital signs reviewed: Yes - General General: Alert and oriented X 3, No acute distress - HEENT HEENT: Ears normal, Moist mucous membranes, Other (Moderate posterior oropharyngeal erythema with tonsillar exudates. Uvula midline. Normal phona tion. No trismus.) - Neck Neck: Supple, no meningeal sign - Cardiac Cardiac: RRR - Respiratory Respiratory: No respiratory distress, Clear bilaterally - Abdomen Abdomen: Soft, Non tender, Non distended - Derm Derm: Warm and dry, No rash - Neuro Neuro: Alert and oriented X 3 Results - Vitals Vitals: Vital Signs - 24 hr 10/11/18 14:17 Temperature 36.0 C L Heart Rate 103 H Respiratory 14 Rate Blood Pressure 146/103 H O2 Saturation 95 Oxygen O2 Source Room air PD MEDICAL DECISION MAKING - ED course Complexity details: considered differential, d/w patient ED course: Patient with what appears to be streptococcal pharyngitis. Will place on penicillin. Given dexamethasone. Will prescribe decongestants as well. Patient counseled regarding signs and symptoms for which I believe and urgent re-evaluation would be necessary. Patient with good understanding of and agreement to plan and is comfortable going home at this time This document was made in part using voice recognition software. While efforts are made to proofread this document, sound alike and grammatical errors may occur. Departure - Departure Disposition: 01 Home, Self Care Clinical Impression: Strep pharyngitis Condition: Good Instructions: ED Strep Pharyngitis Conf Follow-Up: your,doctor as needed [Other] Prescriptions: Penicillin V Potassium 500 mg PO Q6HR #40 tablet Cetirizine HCl/Pseudoephedrine [Zyrtec-D Tablet] 1 each PO BID PRN #30 tab.er.12h PRN Reason: nasal congestion Comments: Drink plenty of fluids. Rest. Take all anitbiotics until gone.
[2018-10-11] MEDS ORDERED: CHERRY SYRUP 10 ML UDC PO ONE (14:28)
[2018-10-11] MEDS ORDERED: DEXAMETHASONE 10 MG/ML VIAL PO STA (14:28)
[2018-10-11] MEDS ORDERED: PENICILLIN VK 250 MG TABLET PO STA (14:28)
== END 2018-10-11 14:42 | disposition home or self-care (01) ==
LOC: ED 14:09
DX: J02.0 Streptococcal pharyngitis (principal); F17.200 Nicotine dependence, unspecified, uncomplicated
CPT/HCPCS: 87070; 87430; 99283; A9270

== ENCOUNTER 2018-10-17 10:49 | Outpatient (CLI) | payer MEDICAID ==
--- NOTE | 2018-10-19 00:10 | CT Report ---
Reason: OTHER CHRONIC SINUSITIS,POLYP OF NASAL CAVITY Procedure Date: 10/17/2018 Accession Number: [id number] / [id number] Procedure: CT - Sinuses CPT Code: FULL RESULT: EXAM: CT SINUS EXAM DATE: 10/17/2018 11:00 AM. HISTORY: Chronic sinusitis. History of polypectomy. COMPARISONS: None. TECHNIQUE: Routine multi-axial CT imaging performed through the sinuses. Iodinated IV contrast: None. Reconstructions: Multiplanar reformats. In accordance with CT protocol optimization, one or more of the following dose reduction techniques were utilized for this exam: automated exposure control, adjustment of mA and/or KV based on patient size, or use of iterative reconstructive technique. FINDINGS: RIGHT Frontal: Totally opacified. Ethmoid: Totally opacified. Maxillary: Totally opacified. Sphenoid: Moderate mucosal thickening. Drainage Pathways: The frontal recess, ostiomeatal complex and sphenoethmoidal recess are congested. LEFT Frontal: Totally opacified. Ethmoid: Totally opacified. Maxillary: Subtotal opacification. Sphenoid: Moderate mucosal thickening. Drainage Pathways: The frontal recess, ostiomeatal complex and sphenoethmoidal recess are congested. Nasal Cavity: The superior and middle turbinates are congested and obscure the airway. Osseous Structures: Unremarkable. Orbits: Unremarkable. Other: None. IMPRESSION: Advanced pansinusitis. RADIA
== END 2018-10-17 10:50 | disposition home or self-care (01) ==
LOC: DI 10:49
PROVIDERS: ATTEND Otolaryngology
DX: J32.4 Chronic pansinusitis (principal); J33.0 Polyp of nasal cavity
CPT/HCPCS: 70486

== ENCOUNTER 2018-10-26 09:47 | Emergency (ER) | payer MEDICAID ==
[2018-10-26] MEDS ORDERED: CHERRY SYRUP 10 ML UDC PO ONE (11:16)
[2018-10-26] MEDS ORDERED: DEXAMETHASONE 10 MG/ML VIAL PO STA (11:16)
--- NOTE | 2018-10-26 11:19 | ED Physician Documentation ---
PD HPI HEENT - Stated complaint Stated Complaint: SORE THROAT/SOA - Chief complaint Chief Complaint: Heent - History obtained from History obtained from: Patient - History of Present Illness Timing - onset: How many days ago (3) Timing - duration: Days (3) Timing - details: Gradual onset, Still present Location: Right ear, Left ear, Throat Improves: Medication Worsens: Swalllowing Associated symptoms: Congestion, Rhinorrhea, Swollen nodes, Cough Similar symptoms before: Diagnosis (strep) Recently seen: Emergency Dept - Additional information Additional information: 38-year-old female with a history of nasal polyposis that is advanced disease has developed a sore throat ear congestion and cough and has a child who is been sick with strep. She states that everyone in her house has had strep she was treated for strep with penicillin 2 weeks ago through the emergency department here and she states that she got some better for a short period of time. She has been reexposed to strep and is again sick. Review of Systems Constitutional: reports: Fever Eyes: denies: Decreased vision Ears: reports: Ear pain Nose: reports: Rhinorrhea / runny nose, Congestion Throat: reports: Sore throat Cardiac: denies: Chest pain / pressure, Palpitations Respiratory: reports: Cough. 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 : None HEENT: None, Other Psych: None Musculoskeletal: None Derm: None - Past Surgical History Past Surgical History: Yes /ACCOUNTS PAYABLE COORDINATOR: Tubal ligation, Other HEENT: Other - Present Medications Home Medications: Ambulatory Orders Medication Instructions Recorded Confirmed Cetirizine HCl/Pseudoephedrine 1 each PO BID PRN #30 tab.er.12h 10/11/18 [Zyrtec-D Tablet] Penicillin V Potassium 500 mg PO Q6HR #40 tablet 10/11/18 Azithromycin [Zithromax] 250 mg PO DAILY #6 tablet 10/26/18 - Allergies Allergies/Adverse Reactions: Allergies Allergy/AdvReac Type Severity Reaction Status Date / Time aspirin Allergy Severe Anaphylaxis Verified 10/26/18 09:56 NSAIDS (Non-Steroidal Allergy Severe Anaphylaxis Verified 10/26/18 09:56 Anti-Inflamma varenicline tartrate * Allergy Severe Blisters Verified 10/26/18 09:56 [From Chantix] - Social History Does the pt smoke?: Yes Smoking Status: Current every day smoker Does the pt drink ETOH?: No Does the pt have substance abuse?: No - Immunizations Immunizations are current?: Yes Immunizations: TDAP current <10years - POLST Patient has POLST: No PD ED PE NORMAL - Vitals Vital signs reviewed: Yes (tachy and hypertensive ) - General General: Alert and oriented X 3, No acute distress, Well developed/nourished - HEENT HEENT: Atraumatic, PERRL, EOMI, Other (right TM is markedly inflamed the left is less invovled and the pharynx is eyrthematous with exudate) - Neck Neck: Supple, no meningeal sign, No bony TTP - Cardiac Cardiac: RRR, No murmur - Respiratory Respiratory: No respiratory distress, Other (transimtted upper airway sounds ) - Abdomen Abdomen: Soft, Non tender - Back Back: No CVA TTP, No spinal TTP - Derm Derm: Normal color, Warm and dry, No rash - Extremities Extremities: No deformity, No edema - Neuro Neuro: Alert and oriented X 3, custom shoemaker 2-12 intact, No motor deficit, No sensory deficit, Normal speech Eye Opening: Spontaneous Motor: Obeys Commands Verbal: Oriented GCS Score: 15 - Psych Psych: Normal mood, Normal affect Results - Vitals Vitals: Vital Signs - 24 hr 10/26/18 09:53 Temperature 36.9 C Heart Rate 112 H Respiratory 14 Rate Blood Pressure 149/116 H O2 Saturation 97 Oxygen O2 Source Room air - Labs Labs: Laboratory Tests 10/26/18 09:58 Group A Strep Rapid Negative PD MEDICAL DECISION MAKING - ED course Complexity details: considered differential, d/w patient ED course: 38-year-old female with nasal polyposis has otitis on exam she has had a recent course of penicillin for strep and has recurrence of symptoms and now has otitis on exam. She is administered dexamethasone 10 mg orally and we will place her on some azithromycin but this time around. Departure - Departure Disposition: 01 Home, Self Care Clinical Impression: Otitis media Qualifiers: Otitis media type: suppurative Chronicity: acute Laterality: bilateral Recurrence: recurrent Spontaneous tympanic membrane rupture: without spontaneous rupture Qualified Code(s): H66.006 - Acute suppurative otitis media without spontaneous rupture of ear drum, recurrent, bilateral Condition: Stable Instructions: ED Otitis Media Acute Adult Follow-Up: [facility] [Provider Group] Prescriptions: Azithromycin [Zithromax] 250 mg PO DAILY #6 tablet
[2018-10-26 11:35] VITALS: BP 140/98
== END 2018-10-26 11:35 | disposition home or self-care (01) ==
LOC: ED 09:47
DX: H66.006 Acute suppurative otitis media without spontaneous rupture of ear drum, recurrent, bilateral (principal); J33.9 Nasal polyp, unspecified; F17.200 Nicotine dependence, unspecified, uncomplicated
CPT/HCPCS: 87070; 87430; 99283

== ENCOUNTER 2018-10-27 18:37 | Outpatient (CLI) | payer MEDICAID | END 2018-10-27 18:38 | disposition critical access hospital (66) | LOC: EMS 18:37 | PROVIDERS: ATTEND Surgery | DX: R06.02 Shortness of breath (principal) | CPT/HCPCS: A0425; A0427; A0999 ==

== ENCOUNTER 2018-10-27 18:56 | Emergency (ER) | payer MEDICAID ==
[2018-10-27] MEDS ORDERED: IPRATROPIUM/ALBUTEROL 3 ML NEB INH STA (19:05)
[2018-10-27] MEDS ORDERED: predniSONE 20 MG TABLET PO STA (19:05)
[2018-10-27] MEDS ORDERED: ALBUTEROL NEB 2.5 MG/3 ML INH STA (19:22)
--- NOTE | 2018-10-27 20:00 | ED Physician Documentation ---
PD HPI DYSPNEA - Stated complaint Stated Complaint: SOA - Chief complaint Chief Complaint: Resp - History obtained from History obtained from: Patient - History of Present Illness Timing - onset: Today Timing - onset during: Light activity, Exertion Timing - details: Gradual onset, Constant Severity Comments: moderate Inciting event(s): Allergic rxn/anaphylaxis (states she was cleaning with bleach and then started wheezing). No: Out of meds, URI, Exercise, Exposure (ie smoke), FB / choking, Immobilization/travel, Emotional event Improved by: Inhaler/neb Worsened by: Exertion, Allergens Associated symptoms: Cough, Wheezing. No: Fever, Hemoptysis, Chest pain / discomfort, Palpitations, Diaphoresis, Bilateral edema, Unilateral edema, Anxiety Similar symptoms before: Diagnosis Recently seen: Not recently seen Review of Systems Ten Systems: 10 systems reviewed and negative Constitutional: denies: Fever, Chills Nose: reports: Congestion Throat: denies: Sore throat Cardiac: denies: Chest pain / pressure Respiratory: reports: Dyspnea, Cough, Wheezing GI: denies: Abdominal Pain, Nausea, Vomiting Skin: reports: Reviewed and negative Musculoskeletal: reports: Reviewed and negative. 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 : None HEENT: None, Other Psych: None Musculoskeletal: None Derm: None - Past Surgical History Past Surgical History: Yes /ROOFING APPLICATOR: Tubal ligation, Other HEENT: Other - Present Medications Home Medications: Ambulatory Orders Medication Instructions Recorded Confirmed Cetirizine HCl/Pseudoephedrine 1 each PO BID PRN #30 tab.er.12h 10/11/18 [Zyrtec-D Tablet] RX: Penicillin V Potassium 500 mg PO Q6HR #40 tablet 10/11/18 RX: Azithromycin [Zithromax] 250 mg PO DAILY #6 tablet 10/26/18 RX: Albuterol Sulf [Ventolin Hfa 1 - 2 puffs INH Q4HR PRN #1 inhaler 10/27/18 Inhaler] RX: predniSONE [Prednisone] 40 mg PO DAILY #10 tablet 10/27/18 - Allergies Allergies/Adverse Reactions: Allergies Allergy/AdvReac Type Severity Reaction Status Date / Time aspirin Allergy Severe Anaphylaxis Verified 10/26/18 09:56 NSAIDS (Non-Steroidal Allergy Severe Anaphylaxis Verified 10/26/18 09:56 Anti-Inflamma varenicline tartrate * Allergy Severe Blisters Verified 10/26/18 09:56 [From Chantix] - Social History Does the pt smoke?: Yes Smoking Status: Current every day smoker Does the pt drink ETOH?: No Does the pt have substance abuse?: No - Immunizations Immunizations are current?: Yes Immunizations: TDAP current <10years - POLST Patient has POLST: No Results - Vitals Vitals: Oxygen O2 Source Room air PD MEDICAL DECISION MAKING - ED course Complexity details: re-evaluated patient, considered differential, d/w patient ED course: ddx - pneumonia, URI, sinusitis, asthma, copd, bronchitis, pe 38 y/o F with hx of asthma with diffuse wheezing, ran out of her inhaler. Talking in full sentences however and improved here in the ED with nebs and steroids. Normal sats and vitals stable. Feel she is appropriate for outpt f/u and steroid taper. Departure - Departure Disposition: 01 Home, Self Care Clinical Impression: Acute asthma exacerbation Qualifiers: Asthma severity: moderate Asthma persistence: unspecified Qualified Code(s): J45.901 - Unspecified asthma with (acute) exacerbation Condition: Stable Record reviewed to determine appropriate education?: Yes Instructions: Asthma Dc Follow-Up: your,doctor [Other] Prescriptions: RX: Albuterol Sulf [Ventolin Hfa Inhaler] 1 - 2 puffs INH Q4HR PRN #1 inhaler PRN Reason: Shortness Of Air/Wheezing RX: predniSONE [Prednisone] 40 mg PO DAILY #10 tablet Discharge Date/Time: 10/27/18 21:10
[2018-10-27 21:10] VITALS: BP 140/74
== END 2018-10-27 21:10 | disposition home or self-care (01) ==
LOC: EDUNIT# → ED 18:56
DX: J45.901 Unspecified asthma with (acute) exacerbation (principal); F17.200 Nicotine dependence, unspecified, uncomplicated
CPT/HCPCS: 94640; 99283; J7512

== ENCOUNTER 2019-02-25 12:34 | Emergency (ER) | payer MEDICAID ==
[2019-02-25 12:47] VITALS: BP 142/97
[2019-02-25 13:06] LABS: BASOPHILS # (AUTO) 0.1 10^3/uL (0.0-0.1); BASOPHILS % (AUTO) 0.5 %; EOSINOPHILS # (AUTO) 0.1 10^3/uL (0.0-0.7); EOSINOPHILS % (AUTO) 0.6 %; HGB - HEMOGLOBIN 14.6 g/dL (12.0-16.0); LYMPHOCYTES # (AUTO) 4.6 10^3/uL (1.5-3.5); LYMPHOCYTES % (AUTO) 26.4 %; MEAN CORPUSCULAR HEMOGLOBIN 31.7 pg (27.0-31.0); MEAN CORPUSCULAR HGB CONC 32.7 g/dL (32.0-36.0); MEAN CORPUSCULAR VOLUME 96.7 fL (81.0-99.0); MEAN PLATELET VOLUME 9.2 fL (7.9-10.8); NEUTROPHILS # (AUTO) 11.3 10^3/uL (1.5-6.6); NEUTROPHILS % (AUTO) 65.4 %; PLT - PLATELET COUNT 285 10^3/uL (130-450); RED BLOOD COUNT 4.61 10^6/uL (4.20-5.40); RED CELL DISTRIBUTION WIDTH 13.8 % (12.0-15.0); WHITE BLOOD COUNT 17.2 x10^3/uL (4.8-10.8)
--- NOTE | 2019-02-25 13:25 | XRAY Report ---
Reason: chest pain Procedure Date: 02/25/2019 Accession Number: [id number] / [id number] Procedure: XR - Chest 2 View X-Ray CPT Code: 11438 FULL RESULT: EXAM: CHEST RADIOGRAPHY EXAM DATE: 02/25/2019 01:04 PM. CLINICAL HISTORY: Chest pain. COMPARISON: CHEST 2 VIEW 08/06/2018 12:01 PM. TECHNIQUE: 2 views. FINDINGS: Lungs/Pleura: There is lower lobe airway thickening. There is no consolidation. Lungs appear without significant change. Negative for pleural effusion and pneumothorax. Mediastinum: Heart size is normal. Trachea is midline. Other: None. IMPRESSION: No change. Airway thickening or inflammation without consolidative or focal pneumonia. RADIA
[2019-02-25 13:27] LABS: ALBUMIN 4.2 g/dL (3.2-5.5); ALBUMIN/GLOBULIN RATIO 1.3 (1.0-2.2); BILIRUBIN,TOTAL 0.5 mg/dL (0.2-1.0); CALCIUM 9.6 mg/dL (8.5-10.3); CREATININE 0.8 mg/dL (0.4-1.0); TOTAL PROTEIN 7.5 g/dL (6.7-8.2)
--- NOTE | 2019-02-25 14:43 | ED Physician Documentation ---
PD HPI CHEST PAIN - Stated complaint Stated Complaint: CP - Chief complaint Chief Complaint: Cardiac - History obtained from History obtained from: Patient - History of Present Illness Timing - onset: Today (starting this morning has had intermittent ripping pain to anterior chest, no radiation. No ripping now. No known family hx, (adopted). Is been going on all day, she recently had bronchitis and was treated with antibiotics. That is getting better.) Review of Systems Constitutional: denies: Fever, Chills Cardiac: reports: Palpitations. 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 : None HEENT: None, Other Psych: None Musculoskeletal: None Derm: None - Past Surgical History Past Surgical History: Yes /DENTAL ASSISTANT: Tubal ligation, Other HEENT: Other - Present Medications Home Medications: Ambulatory Orders Medication Instructions Recorded Confirmed Cetirizine HCl/Pseudoephedrine 1 each PO BID PRN #30 tab.er.12h 10/11/18 [Zyrtec-D Tablet] Penicillin V Potassium 500 mg PO Q6HR #40 tablet 10/11/18 Azithromycin [Zithromax] 250 mg PO DAILY #6 tablet 10/26/18 Albuterol Sulf [Ventolin Hfa 1 - 2 puffs INH Q4HR PRN #1 inhaler 10/27/18 Inhaler] predniSONE [Prednisone] 40 mg PO DAILY #10 tablet 10/27/18 Zolpidem [Ambien] 5 mg PO HS #10 tablet 02/25/19 - Allergies Allergies/Adverse Reactions: Allergies Allergy/AdvReac Type Severity Reaction Status Date / Time aspirin Allergy Severe Anaphylaxis Verified 10/26/18 09:56 NSAIDS (Non-Steroidal Allergy Severe Anaphylaxis Verified 10/26/18 09:56 Anti-Inflamma varenicline tartrate * Allergy Severe Blisters Verified 10/26/18 09:56 [From Chantix] - Social History Does the pt smoke?: Yes Smoking Status: Current every day smoker Does the pt drink ETOH?: No Does the pt have substance abuse?: No - Immunizations Immunizations are current?: Yes Immunizations: TDAP current <10years - POLST Patient has POLST: No PD ED PE NORMAL - Vitals Vital signs reviewed: Yes - General General: Alert and oriented X 3, No acute distress - HEENT HEENT: PERRL, EOMI - Neck Neck: Supple, no meningeal sign, No bony TTP - Cardiac Cardiac: RRR, No murmur - Respiratory Respiratory: No respiratory distress, Clear bilaterally - Abdomen Abdomen: Soft, Non tender - Back Back: No CVA TTP, No spinal TTP - Derm Derm: Normal color, Warm and dry - Extremities Extremities: No edema, No calf tenderness / cord - Neuro Neuro: Alert and oriented X 3, Normal speech Results - Vitals Vitals: Vital Signs - 24 hr 02/25/19 12:42 Temperature 36.4 C L Heart Rate 94 Respiratory 18 Rate Blood Pressure 142/97 H O2 Saturation 98 Oxygen O2 Source Room air - EKG (time done) 1246 Rate: Rate (enter#) (108) Rhythm: Sinus tachycardia [place]: Normal Intervals: Normal ID QRS: Normal Ischemia: Normal ST segments Computer interpretation: Agree with computer - Labs Labs: Laboratory Tests 02/25/19 02/25/19 02/25/19 12:54 12:54 12:54 WBC 17.2 H RBC 4.61 Hgb 14.6 Hct 44.6 MCV 96.7 MCH 31.7 H MCHC 32.7 RDW 13.8 Plt Count 285 MPV 9.2 Neut # (Auto) 11.3 H Lymph # (Auto) 4.6 H [place] # (Auto) 1.0 Eos # (Auto) 0.1 Baso # (Auto) 0.1 Absolute Nucleated RBC 0.00 Nucleated RBC % 0.0 Manual Slide Review Indicated WBC Morphology 1+ REACTIVE LYMPHS D-Dimer < 200.0 L Sodium 135 Potassium 4.0 Chloride 97 L Carbon Dioxide 26 Anion Gap 12.0 BUN 19 Creatinine 0.8 Estimated GFR (MDRD) 79 L Glucose 75 Calcium 9.6 Total Bilirubin 0.5 AST 16 ALT 27 Alkaline Phosphatase 67 Troponin I High Sens Total Protein 7.5 Albumin 4.2 Globulin 3.3 Albumin/Globulin Ratio 1.3 Lipase 38 02/25/19 12:54 WBC RBC Hgb Hct MCV MCH MCHC RDW Plt Count MPV Neut # (Auto) Lymph # (Auto) [place] # (Auto) Eos # (Auto) Baso # (Auto) Absolute Nucleated RBC Nucleated RBC % Manual Slide Review WBC Morphology D-Dimer Sodium Potassium Chloride Carbon Dioxide Anion Gap BUN Creatinine Estimated GFR (MDRD) Glucose Calcium Total Bilirubin AST ALT Alkaline Phosphatase Troponin I High Sens 3.6 Total Protein Albumin Globulin Albumin/Globulin Ratio Lipase - Rads (name of study) 2v chest Radiology: EMP read contemporaneously (Bronchitis type pattern, mediastinum normal, otherwise normal.) PD MEDICAL DECISION MAKING - ED course ED course: 38-year-old woman with ripping chest pain which is concerning for dissection, that said there is no radiation to the back, d-dimer and mediastinum on chest x- ray are normal and the pain is intermittent and corresponds to PVCs on the monitor. Departure - Departure Disposition: 01 Home, Self Care Clinical Impression: Atypical chest pain, PVC (premature ventricular contraction) Condition: Good Record reviewed to determine appropriate education?: Yes Instructions: ED Chest Pain Atypical Unkn Cause, ED Smoking Cessation Prescriptions: Zolpidem [Ambien] 5 mg PO HS #10 tablet Comments: Followup with your physician, next available appt. Return for new or worsening symptoms. Forms: Activity restrictions
[2019-02-25 14:48] LABS: BILIRUBIN,URINE NEGATIVE (NEGATIVE); CLARITY,URINE HAZY (CLEAR); GLUCOSE, URINE (UA) NEGATIVE (NEGATIVE); KETONES,URINE (UA) NEGATIVE (NEGATIVE); LEUKOCYTE ESTERASE, URINE SMALL (NEGATIVE); NITRITE,URINE NEGATIVE (NEGATIVE); OCCULT BLOOD,URINE SMALL (NEGATIVE); PROTEIN,URINE NEGATIVE (NEGATIVE); UROBILINOGEN,URINE 0.2 (NORMAL) E.U./dL (NORMAL)
[2019-02-25 14:49] LABS: HCG UR QUAL NEGATIVE
[2019-02-25 14:53] LABS: BACTERIA,URINE Few /HPF (None Seen); RBC,URINE 0-5 /HPF (0-5); SQUAMOUS EPITHELIAL CELL,UR MOD Squamous (<= Few)
== END 2019-02-25 15:02 | disposition home or self-care (01) ==
LOC: ED 12:34
DX: I49.3 Ventricular premature depolarization (principal); R07.89 Other chest pain; F17.200 Nicotine dependence, unspecified, uncomplicated
CPT/HCPCS: 36415; 71046; 80053; 81001; 81003; 81025; 83690; 84484; 85025; 85379; 87086; 93005; 99283; 99284

== ENCOUNTER 2019-04-25 13:21 | Emergency (ER) | payer MEDICAID ==
[2019-04-25 13:35] VITALS: BP 143/91
[2019-04-25 14:18] LABS: GLUCOSE, URINE (UA) NEGATIVE (NEGATIVE); KETONES,URINE (UA) TRACE mg/dL (NEGATIVE); LEUKOCYTE ESTERASE, URINE TRACE (NEGATIVE); NITRITE,URINE NEGATIVE (NEGATIVE); OCCULT BLOOD,URINE NEGATIVE (NEGATIVE); PROTEIN,URINE TRACE mg/dL (NEGATIVE); UROBILINOGEN,URINE 0.2 (NORMAL) E.U./dL (NORMAL)
[2019-04-25 14:40] LABS: CLARITY,URINE CLEAR (CLEAR)
[2019-04-25 14:41] LABS: BACTERIA,URINE Few /HPF (None Seen); BILIRUBIN,URINE NEGATIVE (NEGATIVE); ICTOTEST,URINE NEGATIVE; MUCUS,URINE Marked Strands; RBC,URINE None Seen /HPF (0-5); SQUAMOUS EPITHELIAL CELL,UR MANY Squamous (<= Few)
[2019-04-25] MEDS ORDERED: PHENAZOPYRIDINE 100 MG TABLET PO STA (14:41)
[2019-04-25] MEDS ORDERED: NITROFURANTOIN MACRO 100 MG CAPSULE PO STA (14:41)
--- NOTE | 2019-04-25 14:52 | ED Physician Documentation ---
PD HPI FEMALE - Stated complaint Stated Complaint: FEMALE - Chief complaint Chief Complaint: UTI - History obtained from History obtained from: Patient, Family - History of Present Illness Timing - onset: How many days ago (3) Timing - duration: Days (3) Timing - details: Gradual onset Pain level max: 4 Pain level max: 3 Associated symptoms: Dysuria, Urinary frequency, Hematuria. 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 : None HEENT: None, Other Psych: None Musculoskeletal: None Derm: None - Past Surgical History Past Surgical History: Yes /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: Tubal ligation, Other HEENT: Other - Present Medications Home Medications: Ambulatory Orders Medication Instructions Recorded Confirmed Cetirizine HCl/Pseudoephedrine 1 each PO BID PRN #30 tab.er.12h 10/11/18 [Zyrtec-D Tablet] Penicillin V Potassium 500 mg PO Q6HR #40 tablet 10/11/18 Azithromycin [Zithromax] 250 mg PO DAILY #6 tablet 10/26/18 Albuterol Sulf [Ventolin Hfa 1 - 2 puffs INH Q4HR PRN #1 inhaler 10/27/18 Inhaler] predniSONE [Prednisone] 40 mg PO DAILY #10 tablet 10/27/18 Zolpidem [Ambien] 5 mg PO HS #10 tablet 02/25/19 Nitrofurantoin Monohyd/M-Cryst 100 mg PO BID #10 capsule 04/25/19 [Macrobid 100 mg Capsule] Phenazopyridine HCl [Pyridium] 200 mg PO TID PRN #6 tablet 04/25/19 - Allergies Allergies/Adverse Reactions: Allergies Allergy/AdvReac Type Severity Reaction Status Date / Time aspirin Allergy Severe Anaphylaxis Verified 04/25/19 13:35 NSAIDS (Non-Steroidal Allergy Severe Anaphylaxis Verified 04/25/19 13:35 Anti-Inflamma varenicline tartrate * Allergy Severe Blisters Verified 04/25/19 13:35 [From Chantix] - Social History Does the pt smoke?: Yes Smoking Status: Current every day smoker Does the pt drink ETOH?: No Does the pt have substance abuse?: No - Immunizations Immunizations are current?: Yes Immunizations: TDAP current <10years - POLST Patient has POLST: No PD ED PE NORMAL - Vitals Vital signs reviewed: Yes - General General: Alert and oriented X 3, No acute distress, Well developed/nourished - HEENT HEENT: Moist mucous membranes - Neck Neck: Supple, no meningeal sign - Cardiac Cardiac: RRR, Strong equal pulses - Respiratory Respiratory: No respiratory distress, Clear bilaterally - Abdomen Abdomen: Soft, Non tender, Non distended - Back Back: No CVA TTP - Derm Derm: Warm and dry - Neuro Neuro: Alert and oriented X 3 - Psych Psych: Normal mood, Normal affect Results - Vitals Vitals: Vital Signs - 24 hr 04/25/19 13:31 Temperature 36.7 C Heart Rate 95 Respiratory 18 Rate Blood Pressure 143/91 H O2 Saturation 98 Oxygen O2 Source Room air - Labs Labs: Laboratory Tests 04/25/19 13:37 Urine Color YELLOW Urine Clarity CLEAR Urine pH 5.0 Ur Specific [place] >=1.030 H Urine Protein TRACE Urine Glucose (UA) NEGATIVE Urine Ketones TRACE Urine Occult Blood NEGATIVE Urine Nitrite NEGATIVE Urine Bilirubin NEGATIVE Urine Urobilinogen 0.2 (NORMAL) Ur Leukocyte Esterase TRACE H Urine RBC None Seen Urine WBC 0-3 Ur Squamous Epith Cells MANY Squamous H Urine Bacteria Few Urine Mucus Marked Strands Urine Culture Comments NOT INDICATED PD MEDICAL DECISION MAKING - ED course Complexity details: reviewed results, re-evaluated patient, considered differential, d/w patient ED course: 38-year-old female with a UTI. Will place on antibiotics. She is well- appearing, nontoxic. Afebrile. No evidence of pyelonephritis. No vaginal bleeding or discharge. Patient counseled regarding signs and symptoms for which I believe and urgent re-evaluation would be necessary. Patient with good understanding of and agreement to plan and is comfortable going home at this time This document was made in part using voice recognition software. While efforts a re made to proofread this document, sound alike and grammatical errors may occur. Departure - Departure Disposition: 01 Home, Self Care Clinical Impression: Urinary tract infection Qualifiers: Urinary tract infection type: acute cystitis Hematuria presence: with hematuria Qualified Code(s): N30.01 - Acute cystitis with hematuria Condition: Good Instructions: ED UTI Cystitis Female Follow-Up: Terence Can MD [Primary Care Provider] - As Needed Prescriptions: Nitrofurantoin Monohyd/M-Cryst [Macrobid 100 mg Capsule] 100 mg PO BID #10 capsule Phenazopyridine HCl [Pyridium] 200 mg PO TID PRN #6 tablet PRN Reason: dysuria Comments: Take all antibiotics until gone. Return if you worsen. Follow-up with your doctor if you are not improved in the next week. Discharge Date/Time: 04/25/19 14:58
== END 2019-04-25 14:58 | disposition home or self-care (01) ==
LOC: ED 13:21
DX: N30.01 Acute cystitis with hematuria (principal); F17.200 Nicotine dependence, unspecified, uncomplicated
CPT/HCPCS: 81001; 99283; A9270; 87086

== ENCOUNTER 2019-07-31 19:15 | Emergency (ER) | payer MEDICAID ==
--- NOTE | 2019-07-31 19:25 | ED Physician Documentation ---
History of Present Illness - Stated complaint Stated Complaint: CP - History obtained from History obtained from: Patient (The patient is a very pleasant 38-year-old female presents tonight with cough for 3 days and some chest discomfort while she is coughing.Patient also reports a runny nose and a mild sore throat and chest congestion. She denies any syncopal episodes denies any history of coronary artery disease or TX or PE or DVT denies any personal family history of hypercoagulability denies any lower extremity swelling denies any recent period of stasis or any surgeries or any exogenous estrogen.) Review of Systems Constitutional: reports: Reviewed and negative Eyes: reports: Reviewed and negative Ears: reports: Reviewed and negative Nose: reports: Reviewed and negative Cardiac: reports: Chest pain / pressure Respiratory: reports: Cough GI: reports: Reviewed and negative : reports: Reviewed and negative Skin: reports: Reviewed and negative Musculoskeletal: reports: Reviewed and negative Neurologic: reports: Reviewed and negative Psychiatric: reports: Reviewed and negative Endocrine: reports: Reviewed and negative Immunocompromised: reports: Reviewed and negative PD PAST MEDICAL HISTORY - Past Medical History Cardiovascular: None Respiratory: Asthma Neuro: Migraines Endocrine/Autoimmune: None GI: GERD, Ulcers NUCLEAR ENGINEER: None : None HEENT: None, Other Psych: None Musculoskeletal: None Derm: None - Past Surgical History Past Surgical History: Yes /NUCLEAR ENGINEER: Tubal ligation, Other HEENT: Other - Present Medications Home Medications: Ambulatory Orders Medication Instructions Recorded Confirmed Cetirizine HCl/Pseudoephedrine 1 each PO BID PRN #30 tab.er.12h 10/11/18 [Zyrtec-D Tablet] Penicillin V Potassium 500 mg PO Q6HR #40 tablet 10/11/18 Azithromycin [Zithromax] 250 mg PO DAILY #6 tablet 10/26/18 Albuterol Sulf [Ventolin Hfa 1 - 2 puffs INH Q4HR PRN #1 inhaler 10/27/18 Inhaler] predniSONE [Prednisone] 40 mg PO DAILY #10 tablet 10/27/18 Zolpidem [Ambien] 5 mg PO HS #10 tablet 02/25/19 Nitrofurantoin Monohyd/M-Cryst 100 mg PO BID #10 capsule 04/25/19 [Macrobid 100 mg Capsule] Phenazopyridine HCl [Pyridium] 200 mg PO TID PRN #6 tablet 04/25/19 - Allergies Allergies/Adverse Reactions: Allergies Allergy/AdvReac Type Severity Reaction Status Date / Time aspirin Allergy Severe Anaphylaxis Verified 07/31/19 19:18 bee venom protein (honey bee) Allergy Severe Anaphylaxis Verified 07/31/19 19:49 NSAIDS (Non-Steroidal Allergy Severe Anaphylaxis Verified 07/31/19 19:18 Anti-Inflamma varenicline tartrate * Allergy Severe Blisters Verified 07/31/19 19:18 [From Chantix] metoprolol Allergy Intermediate Hives Verified 07/31/19 19:48 - Social History Does the pt smoke?: Yes Smoking Status: Current every day smoker Does the pt drink ETOH?: No Does the pt have substance abuse?: No - Immunizations Immunizations are current?: Yes Immunizations: TDAP current <10years - POLST Patient has POLST: No PD ED PE NORMAL - Vitals Vital signs reviewed: Yes - General General: Alert and oriented X 3, No acute distress, Well developed/nourished - HEENT HEENT: Atraumatic, PERRL, Moist mucous membranes, Pharynx benign - Neck Neck: Supple, no meningeal sign, No JVD - Cardiac Cardiac: RRR, No murmur, Strong equal pulses - Respiratory Respiratory: No respiratory distress, Clear bilaterally, Other (Point tenderness to the right side of the chest in the midclavicular line between ribs space 4 and 5.No crepitus, No posterior axillary tenderness palpation.) - Abdomen Abdomen: Normal bowel sounds, Soft, Non tender, Non distended - Derm Derm: Warm and dry - Extremities Extremities: No deformity - Neuro Neuro: Alert and oriented X 3 - Psych Psych: Normal mood, Normal affect Results - Vitals Vitals: Vital Signs - 24 hr 07/31/19 07/31/19 19:18 21:06 Temperature 37.2 C 37.1 C Heart Rate 96 89 Respiratory 14 20 Rate Blood Pressure 154/100 H 150/97 H O2 Saturation 96 95 Oxygen O2 Source Room air - EKG (time done) 19:23 Rate: Other (no stemi) - Labs Labs: Laboratory Tests 07/31/19 20:07 Troponin I High Sens < 2.3 L PD MEDICAL DECISION MAKING - ED course Complexity details: other (hx and pe are consistent with pleuritic chest pain, perc 0, heart score 0, negative chest x ray) Departure - Departure Disposition: 01 Home, Self Care Clinical Impression: Cough Condition: Stable Instructions: Deep Coughing Follow-Up: Terence Can MD [Primary Care Provider] - Tomorrow Discharge Date/Time: 07/31/19 21:08
--- NOTE | 2019-07-31 20:12 | XRAY Report ---
Reason: chest pain cough Procedure Date: 07/31/2019 Accession Number: [id number] / [id number] Procedure: XR - Chest 2 View X-Ray CPT Code: 05388 Final Report FULL RESULT: EXAM: CHEST RADIOGRAPHY EXAM DATE: 07/31/2019 07:47 PM. CLINICAL HISTORY: Chest pain cough. COMPARISON: CHEST 2 VIEW 02/25/2019 1:00 PM. TECHNIQUE: 2 views. FINDINGS: Lungs/Pleura: No focal opacities evident. No pleural effusion. No pneumothorax. Normal volumes. Mediastinum: Heart and mediastinal contours are unremarkable. Other: None. IMPRESSION: Normal 2-view chest radiography. [facility]
[2019-07-31] MEDS ORDERED: BENZONATATE 100 MG CAPSULE PO STA (20:59)
[2019-07-31 21:07] VITALS: BP 150/97
== END 2019-07-31 21:08 | disposition home or self-care (01) ==
LOC: ED 19:15
DX: R05 Cough (principal); F17.210 Nicotine dependence, cigarettes, uncomplicated
CPT/HCPCS: 36415; 71046; 84484; 93005; 99283; 99284; A9270

== ENCOUNTER 2019-08-05 17:30 | Outpatient (CLI) | payer MEDICAID | END 2019-08-05 17:31 | disposition home or self-care (01) | LOC: COV 17:30 | PROVIDERS: ATTEND Family Medicine | DX: R05 Cough (principal); R50.9 Fever, unspecified | CPT/HCPCS: 81599 ==

== ENCOUNTER 2020-01-22 20:16 | Emergency (ER) | payer MEDICAID ==
[2020-01-22 20:41] LABS: BILIRUBIN,URINE NEGATIVE (NEGATIVE); GLUCOSE, URINE (UA) NEGATIVE (NEGATIVE); KETONES,URINE (UA) NEGATIVE (NEGATIVE); LEUKOCYTE ESTERASE, URINE NEGATIVE (NEGATIVE); NITRITE,URINE NEGATIVE (NEGATIVE); OCCULT BLOOD,URINE NEGATIVE (NEGATIVE); PH,URINE 7.5 PH (5.0-7.5); PROTEIN,URINE NEGATIVE (NEGATIVE); UROBILINOGEN,URINE 0.2 (NORMAL) E.U./dL (NORMAL)
[2020-01-22 20:42] LABS: BASOPHILS # (AUTO) 0.2 10^3/uL (0.0-0.1); BASOPHILS % (AUTO) 0.6 %; EOSINOPHILS # (AUTO) 0.3 10^3/uL (0.0-0.7); HGB - HEMOGLOBIN 13.5 g/dL (12.0-16.0); LYMPHOCYTES # (AUTO) 8.2 10^3/uL (1.5-3.5); LYMPHOCYTES % (AUTO) 31.3 %; MEAN CORPUSCULAR HEMOGLOBIN 31.5 pg (27.0-31.0); MEAN CORPUSCULAR HGB CONC 33.5 g/dL (32.0-36.0); MEAN CORPUSCULAR VOLUME 93.9 fL (81.0-99.0); MEAN PLATELET VOLUME 9.3 fL (7.9-10.8); MONOCYTES # (AUTO) 1.5 10^3/uL (0.0-1.0); MONOCYTES % (AUTO) 5.8 %; NEUTROPHILS # (AUTO) 15.6 10^3/uL (1.5-6.6); PLT - PLATELET COUNT 326 10^3/uL (130-450); RED BLOOD COUNT 4.29 10^6/uL (4.20-5.40); RED CELL DISTRIBUTION WIDTH 12.9 % (12.0-15.0)
[2020-01-22 20:46] LABS: CLARITY,URINE CLEAR (CLEAR); HCG UR QUAL NEGATIVE
[2020-01-22 20:54] LABS: ALBUMIN/GLOBULIN RATIO 1.3 (1.0-2.2); BILIRUBIN,TOTAL 0.5 mg/dL (0.2-1.0); CALCIUM 9.3 mg/dL (8.5-10.3); TOTAL PROTEIN 7.2 g/dL (6.7-8.2)
--- NOTE | 2020-01-22 21:20 | ED Physician Documentation ---
PD HPI ABD PAIN - Stated complaint Stated Complaint: ABD PX - Chief complaint Chief Complaint: Abd Pain - History obtained from History obtained from: Patient - History of Present Illness Timing - onset: How many days ago (6) Timing - duration: Days (6) Timing - details: Gradual onset, Still present Quality: Fullness/distended, Pain Location: All over / everywhere Radiation: Left flank, Right flank Improved by: Laying still Worsened by: Moving, Position, Palpation Associated symptoms: Nausea, Constipation. No: Fever, Vomiting Similar symptoms before: Has not had sx before Recently seen: Clinic - Additional information Additional information: 39-year-old female reports that she was started on Zyban 1 week ago and immediately developed constipation. She states that she is usually regular with 2 bowel movements 1 in the morning and 1 in the afternoon and the day following this she was unable to produce stool. She is not been able to produce stool for 1 week. She states that feels like she needs to go and nothing happens. She has tried some stool softener without improvement she has not used suppository enema or laxative. She feels distended full and has pain as well as some nausea. She has been able to continue to eat.She denies any fever or other signs of illness. Review of Systems Constitutional: denies: Fever Eyes: denies: Decreased vision Ears: denies: Ear pain Nose: denies: Rhinorrhea / runny nose, Congestion, Sinus pressure / pain Throat: denies: Sore throat Cardiac: denies: Chest pain / pressure, Palpitations Respiratory: denies: Dyspnea, Cough GI: reports: Abdominal Pain, Nausea, Constipation. 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 : None HEENT: None, Other Psych: None Musculoskeletal: None Derm: None - Past Surgical History Past Surgical History: Yes /DE ALCOHOLIZER: Tubal ligation, Other HEENT: Other - Present Medications Home Medications: Ambulatory Orders Medication Instructions Recorded Confirmed Cetirizine HCl/Pseudoephedrine 1 each PO BID PRN #30 tab.er.12h 10/11/18 [Zyrtec-D Tablet] Penicillin V Potassium 500 mg PO Q6HR #40 tablet 10/11/18 Azithromycin [Zithromax] 250 mg PO DAILY #6 tablet 10/26/18 Albuterol Sulf [Ventolin Hfa 1 - 2 puffs INH Q4HR PRN #1 inhaler 10/27/18 Inhaler] predniSONE [Prednisone] 40 mg PO DAILY #10 tablet 10/27/18 Zolpidem [Ambien] 5 mg PO HS #10 tablet 02/25/19 Nitrofurantoin Monohyd/M-Cryst 100 mg PO BID #10 capsule 04/25/19 [Macrobid 100 mg Capsule] Phenazopyridine HCl [Pyridium] 200 mg PO TID PRN #6 tablet 04/25/19 bisacodyL [Dulcolax] 10 mg PO DAILY #10 tablet 01/23/20 - Allergies Allergies/Adverse Reactions: Allergies Allergy/AdvReac Type Severity Reaction Status Date / Time aspirin Allergy Severe Anaphylaxis Verified 01/22/20 20:27 bee venom protein (honey bee) Allergy Severe Anaphylaxis Verified 01/22/20 20:27 NSAIDS (Non-Steroidal Allergy Severe Anaphylaxis Verified 01/22/20 20:27 Anti-Inflamma varenicline tartrate * Allergy Severe Blisters Verified 01/22/20 20:27 [From Chantix] metoprolol Allergy Intermediate Hives Verified 01/22/20 20:27 - Social History Does the pt smoke?: Yes Smoking Status: Current every day smoker Does the pt drink ETOH?: No Does the pt have substance abuse?: No - Immunizations Immunizations are current?: Yes Immunizations: TDAP current <10years - POLST Patient has POLST: No PD ED PE NORMAL - Vitals Vital signs reviewed: Yes (hypertensive) - General General: Alert and oriented X 3, No acute distress, Well developed/nourished - HEENT HEENT: Atraumatic, PERRL, EOMI - Neck Neck: Supple, no meningeal sign, No bony TTP - Cardiac Cardiac: RRR, No murmur - Respiratory Respiratory: No respiratory distress, Clear bilaterally - Abdomen Abdomen: Soft, Other (Distended generally tender but without focal tenderness or peritoneal signs. Both sides are slightly more tender than the center. ) - Back Back: No CVA TTP, No spinal TTP - Derm Derm: Normal color, No rash - Extremities Extremities: No deformity, No edema - Neuro Neuro: Alert and oriented X 3, No motor deficit, No sensory deficit, Normal speech Eye Opening: Spontaneous Motor: Obeys Commands Verbal: Oriented GCS Score: 15 - Psych Psych: Normal mood, Normal affect Results - Vitals Vitals: Vital Signs - 24 hr 01/22/20 01/22/20 01/22/20 20:20 22:27 23:26 Temperature 36.7 C Heart Rate 100 87 84 Respiratory 18 18 18 Rate Blood Pressure 167/85 H 114/56 L 145/94 H O2 Saturation 96 98 96 01/23/20 00:54 Temperature 36.4 C L Heart Rate 90 Respiratory 21 Rate Blood Pressure 148/97 H O2 Saturation 97 Oxygen O2 Source Room air - Labs Labs: Laboratory Tests 01/22/20 01/22/20 01/22/20 20:30 20:30 20:33 WBC 26.0 H RBC 4.29 Hgb 13.5 Hct 40.3 MCV 93.9 MCH 31.5 H MCHC 33.5 RDW 12.9 Plt Count 326 MPV 9.3 Neut # (Auto) 15.6 H Lymph # (Auto) 8.2 H [place] # (Auto) 1.5 H Eos # (Auto) 0.3 Baso # (Auto) 0.2 H Absolute Nucleated RBC 0.00 Band Neuts % (Manual) Not Reportable Abnorm Lymph % (Manual) Not Reportable Nucleated RBC % 0.0 Neutrophils # (Manual) Not Reportable Lymphocytes # (Manual) Not Reportable Monocytes # (Manual) Not Reportable Eosinophils # (Manual) Not Reportable Basophils # (Manual) Not Reportable Differential Comment MANUAL=AUTO DIFF Manual Slide Review Indicated WBC Morphology 1+ SMUDGE CELLS Platelet Estimate NORMAL (130-450,000) Platelet Morphology NORMAL APPEARANCE RBC Morph Micro Appear NORMAL APPEARANCE Sodium Potassium Chloride Carbon Dioxide Anion Gap BUN Creatinine Estimated GFR (MDRD) Glucose Calcium Total Bilirubin AST ALT Alkaline Phosphatase Total Protein Albumin Globulin Albumin/Globulin Ratio Lipase Urine Color YELLOW Urine Clarity CLEAR Urine pH 7.5 Ur Specific [place] 1.015 1.015 Urine Protein NEGATIVE Urine Glucose (UA) NEGATIVE Urine Ketones NEGATIVE Urine Occult Blood NEGATIVE Urine Nitrite NEGATIVE Urine Bilirubin NEGATIVE Urine Urobilinogen 0.2 (NORMAL) Ur Leukocyte Esterase NEGATIVE Ur Microscopic Review NOT INDICATED Urine Culture Comments NOT INDICATED Urine HCG, Qual NEGATIVE 01/22/20 20:33 WBC RBC Hgb Hct MCV MCH MCHC RDW Plt Count MPV Neut # (Auto) Lymph # (Auto) [place] # (Auto) Eos # (Auto) Baso # (Auto) Absolute Nucleated RBC Band Neuts % (Manual) Abnorm Lymph % (Manual) Nucleated RBC % Neutrophils # (Manual) Lymphocytes # (Manual) Monocytes # (Manual) Eosinophils # (Manual) Basophils # (Manual) Differential Comment Manual Slide Review WBC Morphology Platelet Estimate Platelet Morphology RBC Morph Micro Appear Sodium 139 Potassium 3.6 Chloride 99 L Carbon Dioxide 25 Anion Gap 15.0 H BUN 21 H Creatinine 1.0 Estimated GFR (MDRD) 61 L Glucose 94 Calcium 9.3 Total Bilirubin 0.5 AST 14 ALT 23 Alkaline Phosphatase 68 Total Protein 7.2 Albumin 4.0 Globulin 3.2 Albumin/Globulin Ratio 1.3 Lipase 30 Urine Color Urine Clarity Urine pH Ur Specific [place] Urine Protein Urine Glucose (UA) Urine Ketones Urine Occult Blood Urine Nitrite Urine Bilirubin Urine Urobilinogen Ur Leukocyte Esterase Ur Microscopic Review Urine Culture Comments Urine HCG, Qual - Rads (name of study) CT abdomen pelvis with Radiology: Prelim report reviewed (Impression: 1. Mild colonic stool burden. No bowel obstruction. No evidence of appendicitis. 2. Hepatomegaly.), EMP read indepedently, See rad report PD MEDICAL DECISION MAKING - ED course Complexity details: reviewed old records, reviewed results, re-evaluated patient, considered differential, d/w patient ED course: 39-year-old female with a 6-day history of constipation after taking Zyban has mild general tenderness and distention of her abdomen and initially we attempted an enema which had only minimal results. The patient's white blood cell count was 26,000 and this prompted us to be more concerned about the possibility of other etiologies for the patient's abdominal pain and a CT scan of the abdomen pelvis was obtained showing a mild stool burden and no other specific reasons for pain. In review of the patient's history it appears she has had leukocytosis on every blood draw but never quite this high. Nothing in the patient's physical exam or presentation was concerning for an overwhelming illness and we have given the patient a dose of milk of magnesia with a diagnosis of constipation and I have written a prescription for bisacodyl if she does not have improvement with the milk of magnesia. Departure - Departure Disposition: 01 Home, Self Care Clinical Impression: Constipation Qualifiers: Constipation type: slow transit constipation Qualified Code(s): K59.01 - Slow transit constipation Condition: Stable Instructions: ED Constipation Follow-Up: Terence Can MD [Primary Care Provider] - Prescriptions: bisacodyL [Dulcolax] 10 mg PO DAILY #10 tablet Comments: Today it appears you are constipated and my recommendation is to take the dose of milk of magnesia tonight and if you do not have results by morning take a second dose. If you still do not have results take the bisacodyl. Discharge Date/Time: 01/23/20 01:01
[2020-01-22 21:25] LABS: PLATELET MORPHOLOGY NORMAL APPEARANCE (NORMAL); RBC MORPHOLOGY (MULTIPLE) NORMAL APPEARANCE (NORMAL)
[2020-01-22 21:26] LABS: PLATELET ESTIMATE, MANUAL NORMAL (130-450,000) (NORMAL)
[2020-01-22 21:27] LABS: DIFFERENTIAL COMMENT MANUAL=AUTO DIFF
[2020-01-22] MEDS ORDERED: IOVERSOL 320 100 ML VIAL IVP ONE ×2 (22:47→23:31)
[2020-01-22] MEDS ORDERED: ONDANSETRON 4 MG/2 ML VIAL IVP STA (23:21)
[2020-01-23] MEDS ORDERED: MAGNESIUM HYDROXIDE 2,400 MG/30 ML UDC PO STA (00:37)
[2020-01-23 00:55] VITALS: BP 148/97
--- NOTE | 2020-01-23 09:31 | CT Report ---
PROCEDURE: Abdomen/Pelvis W INDICATIONS: general tenderness distention CONTRAST: IV CONTRAST: Optiray 320 ml: 100 PO CONTRAST: *NO PO CONTRAST TECHNIQUE: After the administration of 100 cc nonionic contrast, 5 mm thick sections acquired from the diaphragm s to the symphysis. 5 mm thick coronal and sagittal reformats were acquired. For radiation dose red uction, the following was used: automated exposure control, adjustment of mA and/or kV according to patient size. COMPARISON: 08/16/2018. Correlation is also made with abdominal ultrasound 08/16/2018 FINDINGS: Image quality: Excellent. ABDOMEN: Lung bases: Lung bases are clear. Heart size is normal. A small hiatal hernia is incidentally note d. Solid organs: The liver is prominent in size and demonstrates no focal lesions. Diffuse fatty liver i nfiltration can be seen. The spleen demonstrates normal size. No focal splenic lesions are seen. Gall bladder is largely decompressed at the time of this study. Biliary system is non dilated. Pancreas enhances normally. No adrenal nodules. Kidneys demonstrate normal size and enhancement, without hydronephrosis. A 2 cm exophytic water dens ity cyst can be seen along the lateral aspect of the right kidney. Peritoneum and bowel: Bowel loops demonstrate normal wall thickness and caliber. No free fluid or a ir. A normal appendix is seen. A mild to moderate amount of stool can be seen within the colon. Nodes and vessels: No retroperitoneal or mesenteric adenopathy by size criteria. Aorta and inferior vena cava are normal in size. Miscellaneous: No ventral hernias. PELVIS: Genitourinary: Bladder wall thickness is normal. The uterus demonstrates an unremarkable appearance for age. No adnexal masses are seen. Miscellaneous: No inguinal hernias or adenopathy. Bones: No suspicious bony lesions. No vertebral body compression fractures. Mild dextroconvex scol iotic curvature is seen. Mild transitional lumbar anatomy is seen, with partial sacralization of the L5 level. IMPRESSION: No acute abnormality is seen. Normal appendix. There is a mild to moderate amount of stool seen within the colon. Please correlate with clinical con stipation. Incidental note is made of: Small hiatal hernia Enlarged, fatty liver Simple appearing right renal cyst Dextroconvex sclerotic curvature Partial L5 sacralization Note: No significant discrepancy from the preliminary report. Reviewed by: Stephen Shepard MD on 01/23/2020 8:30 AM CONSTANTIN Approved by: Stephen Shepard MD on 01/23/2020 8:30 AM CONSTANTIN Station ID: [id number]
== END 2020-01-23 01:01 | disposition home or self-care (01) ==
LOC: ED 20:16
DX: K59.01 Slow transit constipation (principal); F17.200 Nicotine dependence, unspecified, uncomplicated
CPT/HCPCS: 36415; 74177; 80053; 81003; 81025; 83690; 85025; 96374; 99284; A9270; Q9967; 81001; 87086

== ENCOUNTER 2020-03-27 10:16 | Emergency (ER) | payer MEDICAID ==
--- NOTE | 2020-03-27 12:40 | ED Physician Documentation ---
History of Present Illness - Stated complaint Stated Complaint: LOSS VISION LT EYE - Chief complaint Chief Complaint: Heent - History obtained from History obtained from: Patient - History of Present Illness Timing: Today Pain level max: 0 Pain level now: 0 - Additonal information Additional information: 39-year-old female presents to the emergency department stating that she felt her left eye watering today, then she saw a large black blob moved from the left to the right side of her eyes and then back from the right to the left side of her eye. Since that time she has had blurred vision in the left side of her eye. She also states that her left face feels slightly numb. Nothing makes it better or worse. Started approximately 4 hours ago. Has never had similar symptoms. She does wear glasses. Review of Systems Constitutional: denies: Fever, Chills Eyes: denies: Photophobia, Discharge, Irritation Ears: denies: Ear pain Nose: reports: Congestion (chronic sinus issues). 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 : None HEENT: None, Other Psych: None Musculoskeletal: None Derm: None - Past Surgical History Past Surgical History: Yes /EDGE GLUE MACHINE TENDER: Tubal ligation, Other HEENT: Other - Present Medications Home Medications: Ambulatory Orders Medication Instructions Recorded Confirmed Cetirizine HCl/Pseudoephedrine 1 each PO BID PRN #30 tab.er.12h 10/11/18 [Zyrtec-D Tablet] Penicillin V Potassium 500 mg PO Q6HR #40 tablet 10/11/18 Azithromycin [Zithromax] 250 mg PO DAILY #6 tablet 10/26/18 Albuterol Sulf [Ventolin Hfa 1 - 2 puffs INH Q4HR PRN #1 inhaler 10/27/18 Inhaler] predniSONE [Prednisone] 40 mg PO DAILY #10 tablet 10/27/18 Zolpidem [Ambien] 5 mg PO HS #10 tablet 02/25/19 Nitrofurantoin Monohyd/M-Cryst 100 mg PO BID #10 capsule 04/25/19 [Macrobid 100 mg Capsule] Phenazopyridine HCl [Pyridium] 200 mg PO TID PRN #6 tablet 04/25/19 bisacodyL [Dulcolax] 10 mg PO DAILY #10 tablet 01/23/20 - Allergies Allergies/Adverse Reactions: Allergies Allergy/AdvReac Type Severity Reaction Status Date / Time aspirin Allergy Severe Anaphylaxis Verified 03/27/20 10:23 bee venom protein (honey bee) Allergy Severe Anaphylaxis Verified 03/27/20 10:23 NSAIDS (Non-Steroidal Allergy Severe Anaphylaxis Verified 03/27/20 10:23 Anti-Inflamma varenicline tartrate * Allergy Severe Blisters Verified 03/27/20 10:23 [From Chantix] metoprolol Allergy Intermediate Hives Verified 03/27/20 10:23 - Social History Does the pt smoke?: Yes Smoking Status: Current every day smoker Does the pt drink ETOH?: No Does the pt have substance abuse?: No - Immunizations Immunizations are current?: Yes Immunizations: TDAP current <10years - POLST Patient has POLST: No PD ED PE NORMAL - Vitals Vital signs reviewed: Yes - General General: Alert and oriented X 3, No acute distress - HEENT HEENT: Moist mucous membranes, Other (L eye - Normal funduscopic exam. Intraocular pressure of 12. Normal ultrasound of the eye.) - Neck Neck: Supple, no meningeal sign - Cardiac Cardiac: RRR, Strong equal pulses - Respiratory Respiratory: No respiratory distress, Clear bilaterally - Abdomen Abdomen: Soft, Non tender, Non distended - Derm Derm: Warm and dry - Neuro Neuro: Alert and oriented X 3, No motor deficit, Normal speech, Other (mild decrease sensation over V2-3) - Psych Psych: Normal mood, Normal affect Results - Vitals Vitals: Vital Signs - 24 hr 03/27/20 03/27/20 10:19 13:07 Temperature 36.6 C 37.4 C Heart Rate 91 77 Respiratory 18 18 Rate Blood Pressure 146/101 H 141/94 H O2 Saturation 96 97 Oxygen O2 Source Room air PD MEDICAL DECISION MAKING - ED course Complexity details: reviewed results, re-evaluated patient, considered differential, d/w patient, d/w product support consultant ED course: 39 year old female with vision changes on unclear etiology? Ocular migraine vs atypical bells palsy vs other? Bedside US of the eye is normal. Fundoscopy is normal. IOP is normal. D/w ophthalmology and Dr. Nelson will see her in his office today. No signs of stroke. Patient counseled regarding signs and symptoms for which I believe and urgent re-evaluation would be necessary. Patient with good understanding of and agreement to plan and is comfortable going home at this time This document was made in part using voice recognition software. While efforts are made to proofread this document, sound alike and grammatical errors may occur. Departure - Departure Disposition: 01 Home, Self Care Clinical Impression: Vision loss Condition: Good Instructions: ED Blurred Vision Follow-Up: Tobias Nelson MD [Provider Admit Priv/Credential] - (today at 2:15pm) Comments: the cause of your symptoms is unclear today. The fish egg packer has agreed to see you today. They will see you at approximately 2:15 PM. Please go there to get your self registered and checked in for the appointment. Discharge Date/Time: 03/27/20 13:11
[2020-03-27 13:07] VITALS: BP 141/94
== END 2020-03-27 13:11 | disposition home or self-care (01) ==
LOC: ED 10:16
DX: H54.62 Unqualified visual loss, left eye, normal vision right eye (principal); F17.200 Nicotine dependence, unspecified, uncomplicated
CPT/HCPCS: 99281; 99284

== ENCOUNTER 2020-04-26 14:11 | Emergency (ER) | payer MEDICAID ==
[2020-04-26] MEDS ORDERED: predniSONE 20 MG TABLET PO STA (14:37)
--- NOTE | 2020-04-26 14:37 | ED Physician Documentation ---
PD HPI DYSPNEA - Stated complaint Stated Complaint: SOA - Chief complaint Chief Complaint: Resp - History obtained from History obtained from: Patient - Additional information Additional information: Sick for 2 days with nasal congestion, sinus pressure, increasing shortness of breath and productive cough. No fever. She does have body aches. No sick contacts. Albuterol has not helped much. She has a history of reactive airways disease and nasal polyps. Review of Systems Constitutional: reports: Fatigue. 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 : None HEENT: None, Other Psych: None Musculoskeletal: None Derm: None - Past Surgical History Past Surgical History: Yes /CHIEF TELEPHONE OPERATOR: Tubal ligation, Other HEENT: Other - Present Medications Home Medications: Ambulatory Orders Medication Instructions Recorded Confirmed Cetirizine HCl/Pseudoephedrine 1 each PO BID PRN #30 tab.er.12h 10/11/18 [Zyrtec-D Tablet] Penicillin V Potassium 500 mg PO Q6HR #40 tablet 10/11/18 Azithromycin [Zithromax] 250 mg PO DAILY #6 tablet 10/26/18 Albuterol Sulf [Ventolin Hfa 1 - 2 puffs INH Q4HR PRN #1 inhaler 10/27/18 Inhaler] predniSONE [Prednisone] 40 mg PO DAILY #10 tablet 10/27/18 Zolpidem [Ambien] 5 mg PO HS #10 tablet 02/25/19 Nitrofurantoin Monohyd/M-Cryst 100 mg PO BID #10 capsule 04/25/19 [Macrobid 100 mg Capsule] Phenazopyridine HCl [Pyridium] 200 mg PO TID PRN #6 tablet 04/25/19 bisacodyL [Dulcolax] 10 mg PO DAILY #10 tablet 01/23/20 Doxycycline Hyclate 100 mg PO BID #14 tablet.dr 04/26/20 predniSONE [Deltasone] 20 mg PO [id number] #21 tab 04/26/20 - Allergies Allergies/Adverse Reactions: Allergies Allergy/AdvReac Type Severity Reaction Status Date / Time aspirin Allergy Severe Anaphylaxis Verified 04/26/20 14:24 bee venom protein (honey bee) Allergy Severe Anaphylaxis Verified 04/26/20 14:24 NSAIDS (Non-Steroidal Allergy Severe Anaphylaxis Verified 04/26/20 14:24 Anti-Inflamma varenicline tartrate * Allergy Severe Blisters Verified 04/26/20 14:24 [From Chantix] metoprolol Allergy Intermediate Hives Verified 04/26/20 14:24 - Social History Does the pt smoke?: Yes Smoking Status: Current every day smoker Does the pt drink ETOH?: No Does the pt have substance abuse?: No - Immunizations Immunizations are current?: Yes Immunizations: TDAP current <10years - POLST Patient has POLST: No PD ED PE NORMAL - Vitals Vital signs reviewed: Yes - General General: Alert and oriented X 3, No acute distress - HEENT HEENT: PERRL, EOMI - Neck Neck: Supple, no meningeal sign, No bony TTP - Cardiac Cardiac: RRR, No murmur - Respiratory Respiratory: No respiratory distress, Other (Rhonchorous throughout with good air motion but mild expiratory wheezes) - Abdomen Abdomen: Normal bowel sounds, Non tender - Extremities Extremities: No edema, No calf tenderness / cord - Neuro Neuro: Alert and oriented X 3, Normal speech Results - Vitals Vitals: Vital Signs - 24 hr 04/26/20 04/26/20 14:20 14:35 Temperature 36.7 C 37.4 C Heart Rate 95 87 Respiratory 14 22 Rate Blood Pressure 131/57 H 182/126 H O2 Saturation 97 97 Oxygen O2 Source Room air PD MEDICAL DECISION MAKING - ED course ED course: 39-year-old woman with asthmatic bronchitis. Counseled to quit smoking. She has albuterol and we will start steroids and doxycycline. We will perform a send out Covid test. She is not in extremis and as such do not think she needs a neb here given the risks associated during this Covid outbreak. Departure - Departure Disposition: 01 Home, Self Care Clinical Impression: Bronchitis Asthma Qualifiers: Asthma severity: moderate Asthma persistence: persistent Asthma complication type: with acute exacerbation Qualified Code(s): J45.41 - Moderate persistent asthma with (acute) exacerbation Condition: Good Record reviewed to determine appropriate education?: Yes Instructions: ED Bronchitis Asthmatic Prescriptions: predniSONE [Deltasone] 20 mg PO [id number] #21 tab Doxycycline Hyclate 100 mg PO BID #14 tablet.dr Comments: You have a Covid test pending. You need to self quarantine until the result is done and negative. Do not leave your house. Do not get near anybody. The results should be done in 48 to 72 hours. We will call with a positive result, the fastest way to get a negative result for confirmation though is to go to the hospital website at [email or web address], click on the my [employer] [facility] tab and sign up for the patient portal. If any friends or family get sick and would like to have a Covid test done, but do not have signs or symptoms that would necessitate being hospitalized, we encourage testing through our coronavirus swabbing station, call [phone] to schedule an appointment. Forms: Activity restrictions
[2020-04-26 14:57] VITALS: BP 168/96
== END 2020-04-26 15:02 | disposition home or self-care (01) ==
LOC: ED 14:11
DX: J45.41 Moderate persistent asthma with (acute) exacerbation (principal); F17.200 Nicotine dependence, unspecified, uncomplicated; Z20.828 Contact with and (suspected) exposure to other viral communicable diseases
CPT/HCPCS: 87635; 99283; 99284; J7512

== ENCOUNTER 2020-07-23 09:41 | Emergency (ER) | payer MEDICAID ==
--- NOTE | 2020-07-23 10:17 | ED Physician Documentation ---
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 Developed wheezing and dyspnea.) Timing - duration: Hours Timing - details: Abrupt onset, Still present Inciting event(s): Exposure (ie smoke) (bleach). No: URI Improved by: No: Inhaler/neb (used MDI without much improvement) Associated symptoms: Cough, Wheezing, Bilateral edema. No: Fever, Hemoptysis, Chest pain / discomfort Similar symptoms before: Has not had sx before (has had asthma in the past, but not reaction to bleach in the past.) Review of Systems Constitutional: denies: Fever, Chills Nose: denies: Rhinorrhea / runny nose, Congestion Throat: denies: Sore throat Cardiac: denies: Chest pain / pressure Respiratory: reports: Dyspnea, Wheezing. 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 04/26/20 Sertraline [Zoloft] 50 mg PO DAILY 04/26/20 04/26/20 predniSONE [Deltasone] 20 mg PO [id number] #21 tab 04/26/20 Albuterol Sulf [Ventolin Hfa 3 - 4 puffs INH Q4HR PRN #1 inhaler 07/23/20 Inhaler] Cetirizine [ZyrTEC] 10 mg PO BID #20 tablet 07/23/20 dexAMETHasone [Decadron] 4 mg PO DAILY #7 tablet 07/23/20 - Allergies Allergies/Adverse Reactions: Allergies Allergy/AdvReac Type Severity Reaction Status Date / Time aspirin Allergy Severe Anaphylaxis Verified 04/26/20 14:24 bee venom protein (honey bee) Allergy Severe Anaphylaxis Verified 04/26/20 14:24 NSAIDS (Non-Steroidal Allergy Severe Anaphylaxis Verified 04/26/20 14:24 Anti-Inflamma varenicline tartrate * Allergy Severe Blisters Verified 04/26/20 14:24 [From Chantix] metoprolol Allergy Intermediate Hives Verified 04/26/20 14:24 - Social History Does the pt smoke?: Yes Smoking Status: Current every day smoker Does the pt drink ETOH?: No Does the pt have substance abuse?: No - Immunizations Immunizations are current?: Yes Immunizations: TDAP current <10years - POLST Patient has POLST: No PD ED PE NORMAL - Vitals Vital signs reviewed: Yes - General General: Alert and oriented X 3, Well developed/nourished, Other (appears uncomfortable with work of breathing and prolonged expiratory phase. ) - Neck Neck: Supple, no meningeal sign, No adenopathy - Cardiac Cardiac: RRR, No murmur - Respiratory Respiratory: No: Clear bilaterally (prolonged exp phase and diffuse wheezing. ) - Abdomen Abdomen: Soft, Non tender - Derm Derm: Normal color, Warm and dry - Extremities Extremities: No edema, No calf tenderness / cord Results - Vitals Vitals: Vital Signs - 24 hr 07/23/20 07/23/20 07/23/20 09:58 10:15 10:39 Temperature 36.1 C L 36.8 C Heart Rate 102 H 108 H 97 Respiratory 22 24 Rate Blood Pressure 149/100 H O2 Saturation 95 96 07/23/20 11:36 Temperature 36.9 C Heart Rate 97 Respiratory 18 Rate Blood Pressure 166/106 H O2 Saturation 98 Oxygen O2 Source Room air - Rads (name of study) chest xray Radiology: Prelim report reviewed (no infiltrates nor PTX.), See rad report PD MEDICAL DECISION MAKING - ED course Complexity details: re-evaluated patient (improved quite well with nebulizers x 2.), considered differential, d/w patient Departure - Departure Disposition: 01 Home, Self Care Clinical Impression: Acute exacerbation of extrinsic asthma, Exposure to chemical inhalation Dyspnea Qualifiers: Dyspnea type: shortness of breath Qualified Code(s): R06.02 - Shortness of breath Condition: Stable Record reviewed to determine appropriate education?: Yes Instructions: ED Reactive Airway Disease Prescriptions: Albuterol Sulf [Ventolin Hfa Inhaler] 3 - 4 puffs INH Q4HR PRN #1 inhaler PRN Reason: Shortness Of Air/Wheezing dexAMETHasone [Decadron] 4 mg PO DAILY #7 tablet Cetirizine [ZyrTEC] 10 mg PO BID #20 tablet Comments: Stay well-hydrated. Use your albuterol inhaler 3 to 4 puffs 4 times a day for the next several days to week and then as needed. Decadron steroid daily for a week. Cetirizine antihistamine twice daily for 7 to 10 days. Recheck if not consistently improved well over the next few days and return if worse again. Discharge Date/Time: 07/23/20 11:38
[2020-07-23] MEDS ORDERED: LEVALBUTEROL 1.25 MG/3 ML NEB INH STA ×3 (10:22→11:01)
[2020-07-23] MEDS ORDERED: DEXAMETHASONE 10 MG/ML VIAL PO STA (10:23)
[2020-07-23] MEDS ORDERED: diphenhydrAMINE ELIXIR 25 MG/10 ML UDC PO STA (10:23)
[2020-07-23] MEDS ORDERED: CHERRY SYRUP 10 ML UDC PO ONE (10:23)
[2020-07-23] MEDS ORDERED: LEVALBUTEROL 1.25 MG/3 ML NEB INH ONE (10:32)
--- NOTE | 2020-07-23 10:48 | XRAY Report ---
PROCEDURE: Chest 1 View X-Ray INDICATIONS: dyspnea/wheezing TECHNIQUE: One view of the chest was acquired. COMPARISON: 07/31/2019 FINDINGS: Surgical changes and devices: None. Lungs and pleura: No pleural effusions or pneumothorax. Lungs are clear. Mediastinum: Mediastinal contours appear normal. Heart size is normal. Bones and chest wall: No suspicious bony lesions. Overlying soft tissues appear unremarkable. IMPRESSION: No evidence acute pulmonary process. Reviewed by: Barrera Francis MD on 07/23/2020 9:47 AM [facility] Approved by: Barrera Francis MD on 07/23/2020 9:47 AM [facility] Station ID: [id number]
[2020-07-23 11:36] VITALS: BP 166/106
== END 2020-07-23 11:38 | disposition home or self-care (01) ==
LOC: ED 09:41
DX: J45.901 Unspecified asthma with (acute) exacerbation (principal); F17.200 Nicotine dependence, unspecified, uncomplicated; Z77.098 Contact with and (suspected) exposure to other hazardous, chiefly nonmedicinal, chemicals
CPT/HCPCS: 71045; 94640; 94664; 99283; A9270

== ENCOUNTER 2020-09-02 18:00 | Emergency (ER) | payer MEDICAID ==
--- OUTSIDE RECORDS SUMMARY | 2020-09-02 18:04 | EXTERNAL MEDICAL SUMMARY RPT | Continuity of Care Document ---
:1980 Demographics Phone Unavailable Preferred Language Unknown Marital Status Unknown Islam Affiliation Unknown Race Unknown Ethnic Group Unknown Author Organization [place] Address [address] [phone] Phone Social History date description facility [phone]
--- NOTE | 2020-09-02 18:10 | ED Physician Documentation ---
PD HPI HEENT - Stated complaint Stated Complaint: ear px, sinus px, congestion - Chief complaint Chief Complaint: Heent - History obtained from History obtained from: Patient - History of Present Illness Timing - onset: How many days ago (2-3) Timing - duration: Days Timing - details: Gradual onset, Still present Location: Left ear (pressure left ear), Sinuses Worsens: Position (feels worse leaning forward). No: Swalllowing Associated symptoms: Facial swelling (left mandible after tooth extraction, but is improved.). No: Fever, Congestion, Swollen nodes, Cough Recently seen: Clinic (right lower molar extraction 9 days ago with some dry socket few days later, but is healing well now.) Review of Systems Constitutional: denies: Fever, Chills Ears: reports: Ear pain Nose: reports: Congestion, Sinus pressure / pain. denies: Rhinorrhea / runny nose Throat: reports: Dental pain / toothache. 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, Other HEENT: Other - Present Medications Home Medications: Ambulatory Orders Medication Instructions Recorded Confirmed Sertraline [Zoloft] 50 mg PO DAILY 04/26/20 09/02/20 Albuterol Sulf [Ventolin Hfa 3 - 4 puffs INH Q4HR PRN #1 inhaler 07/23/20 09/02/20 Inhaler] Cetirizine [ZyrTEC] 10 mg PO BID #20 tablet 07/23/20 09/02/20 Amitriptyline [Elavil] 25 mg PO QPM 09/02/20 09/02/20 Amoxicillin 500 mg PO TID #21 cap 09/02/20 Montelukast [Singulair] 10 mg PO DAILY 09/02/20 09/02/20 Montelukast [Singulair] 10 mg PO QPM 30 Days #30 tablet 09/02/20 Zolpidem [Ambien] 5 mg PO QPM PRN 09/02/20 09/02/20 dexAMETHasone [Decadron] 4 mg PO DAILY #7 tablet 09/02/20 - Allergies Allergies/Adverse Reactions: Allergies Allergy/AdvReac Type Severity Reaction Status Date / Time aspirin Allergy Severe Anaphylaxis Verified 09/02/20 18:05 bee venom protein (honey bee) Allergy Severe Anaphylaxis Verified 09/02/20 18:05 NSAIDS (Non-Steroidal Allergy Severe Anaphylaxis Verified 09/02/20 18:05 Anti-Inflamma varenicline tartrate * Allergy Severe Blisters Verified 09/02/20 18:05 [From Chantix] metoprolol Allergy Intermediate Hives Verified 09/02/20 18:05 - Social History Does the pt smoke?: Yes Smoking Status: Current every day smoker Does the pt drink ETOH?: No Does the pt have substance abuse?: No - Immunizations Immunizations are current?: Yes Immunizations: TDAP current <10years - POLST Patient has POLST: No PD ED PE NORMAL - Vitals Vital signs reviewed: Yes - General General: Alert and oriented X 3, No acute distress, Well developed/nourished - HEENT HEENT: Moist mucous membranes, Pharynx benign, Other (right lower molar extraction site without signs of infection. ). No: Ears normal (right okay; left with fluid behind TM, but not redness. ) - Neck Neck: Supple, no meningeal sign, No adenopathy - Cardiac Cardiac: RRR, No murmur - Respiratory Respiratory: Clear bilaterally - Derm Derm: Normal color, Warm and dry, No rash Results - Vitals Vitals: Oxygen O2 Source Room air PD MEDICAL DECISION MAKING - ED course Complexity details: considered differential (sounds sinusitis. Does not sound like relates to recent dental extraction right lower. ), d/w patient Departure - Departure Disposition: Home, Self Care Clinical Impression: Acute sinusitis Qualifiers: Sinusitis location: pansinusitis Recurrence: non-recurrent Qualified Code(s): J01.40 - Acute pansinusitis, unspecified Condition: Stable Record reviewed to determine appropriate education?: Yes Instructions: ED Sinusitis Abx Tx Follow-Up: Terence Can MD [Primary Care Provider] - Prescriptions: Amoxicillin 500 mg PO TID #21 cap dexAMETHasone [Decadron] 4 mg PO DAILY #7 tablet Montelukast [Singulair] 10 mg PO QPM 30 Days #30 tablet Comments: Continue with your normal cetirizine twice daily for now. Resume the Singulair. Add Decadron steroid daily for a week. After that resume your Flonase or you can continue the Flonase anyway. Amoxicillin as directed for a week for presumed bacterial infection as well. Stay well-hydrated and Tylenol every 4-6 hours as needed for pains. The dental extraction site looks okay and I think is unrelated to the current symptoms and probably more relates to seasonal allergies, congestion and development of infection. Discharge Date/Time: 09/02/20 18:59
[2020-09-02] MEDS ORDERED: DEXAMETHASONE 10 MG/ML VIAL PO STA (18:25)
[2020-09-02] MEDS ORDERED: cephALEXin 250 MG CAPSULE PO STA (18:25)
[2020-09-02] MEDS ORDERED: CHERRY SYRUP 10 ML UDC PO ONE (18:25)
--- OUTSIDE RECORDS SUMMARY | 2020-09-02 18:33 | EXTERNAL MEDICAL SUMMARY RPT | Continuity of Care Document ---
:1980 Demographics Phone Unavailable Preferred Language Unknown Marital Status Unknown Mandaen Affiliation Unknown Race Unknown Ethnic Group Unknown Author Organization [place] Address [address] [phone] Phone Social History date description facility [phone]
[2020-09-02] MEDS ORDERED: ONDANSETRON ODT 4 MG TABLET TL STA (18:38)
[2020-09-02 18:59] VITALS: BP 138/94
== END 2020-09-02 18:59 | disposition home or self-care (01) ==
LOC: ED 18:00
DX: J01.40 Acute pansinusitis, unspecified (principal); F17.200 Nicotine dependence, unspecified, uncomplicated
CPT/HCPCS: 99283; 99284; A9270; Q0162

== ENCOUNTER 2020-10-30 10:56 | Emergency (ER) | payer MEDICAID ==
--- OUTSIDE RECORDS SUMMARY | 2020-10-30 10:59 | EXTERNAL MEDICAL SUMMARY RPT | Continuity of Care Document ---
:1980 Demographics Phone Unavailable Preferred Language Unknown Marital Status Unknown Confucianism Affiliation Unknown Race Unknown Ethnic Group Unknown Author Organization [place] Address [address] [phone] Phone Allergies Encounters Medications Problems Results
[2020-10-30] MEDS ORDERED: ONDANSETRON 4 MG/2 ML VIAL IVP STA (11:14)
[2020-10-30] MEDS ORDERED: KETOROLAC 30 MG/ML VIAL IVP STA (11:14)
[2020-10-30] MEDS ORDERED: PANTOPRAZOLE 40 MG VIAL IVP STA (11:14)
--- NOTE | 2020-10-30 11:15 | ED Physician Documentation ---
History of Present Illness - Stated complaint Stated Complaint: ABD PX - Chief complaint Chief Complaint: Abd Pain - History obtained from History obtained from: Patient - Additonal information Additional information: 40-year-old woman diagnosed with H. pylori by upper endoscopy up back in July. Sounds like she was on appropriate therapy and got better but over the last few weeks has developed recurrent upper abdominal pain worse with eating consistent with prior episode of H. pylori. She is had a lot of diarrhea with it. No history of abdominal surgeries. 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: Tubal ligation, Other HEENT: Other - Present Medications Home Medications: Ambulatory Orders Medication Instructions Recorded Confirmed Sertraline [Zoloft] 50 mg PO DAILY 04/26/20 09/02/20 Albuterol Sulf [Ventolin Hfa 3 - 4 puffs INH Q4HR PRN #1 inhaler 07/23/20 09/02/20 Inhaler] Cetirizine [ZyrTEC] 10 mg PO BID #20 tablet 07/23/20 09/02/20 Amitriptyline [Elavil] 25 mg PO QPM 09/02/20 09/02/20 Amoxicillin 500 mg PO TID #21 cap 09/02/20 Montelukast [Singulair] 10 mg PO DAILY 09/02/20 09/02/20 Montelukast [Singulair] 10 mg PO QPM 30 Days #30 tablet 09/02/20 Zolpidem [Ambien] 5 mg PO QPM PRN 09/02/20 09/02/20 dexAMETHasone [Decadron] 4 mg PO DAILY #7 tablet 09/02/20 HYDROcod/ACETAM 5/325 [[place] 5/325] 1 - 2 tab PO Q6H PRN #10 tablet 10/30/20 Omeprazole 40 mg PO DAILY #30 cap 10/30/20 Ondansetron Odt [Zofran] 4 mg TL Q6H PRN #10 tablet 10/30/20 - Allergies Allergies/Adverse Reactions: Allergies Allergy/AdvReac Type Severity Reaction Status Date / Time aspirin Allergy Severe Anaphylaxis Verified 10/30/20 11:02 bee venom protein (honey bee) Allergy Severe Anaphylaxis Verified 10/30/20 11:02 NSAIDS (Non-Steroidal Allergy Severe Anaphylaxis Verified 10/30/20 11:02 Anti-Inflamma varenicline tartrate * Allergy Severe Blisters Verified 10/30/20 11:02 [From Chantix] metoprolol Allergy Intermediate Hives Verified 10/30/20 11:02 - Social History Does the pt smoke?: Yes Smoking Status: Current every day smoker Does the pt drink ETOH?: No Does the pt have substance abuse?: No - Immunizations Immunizations are current?: Yes Immunizations: TDAP current <10years - POLST Patient has POLST: No PD ED PE NORMAL - Vitals Vital signs reviewed: Yes - General General: Alert and oriented X 3, No acute distress - Abdomen Abdomen: Normal bowel sounds, Soft, Other (Minimal upper abdominal tenderness that does not seem to lateralize. Negative Muniz sign. No lower abdominal tenderness.) - Derm Derm: Normal color, Warm and dry - Neuro Neuro: Alert and oriented X 3, Normal speech Results - Vitals Vitals: Vital Signs - 24 hr 10/30/20 10:59 Temperature 36.0 C L Heart Rate 90 Respiratory 18 Rate Blood Pressure 179/100 H O2 Saturation 96 Oxygen O2 Source Room air - Labs Labs: Laboratory Tests 10/30/20 10/30/20 11:23 11:23 WBC 13.4 H RBC 4.33 Hgb 13.5 Hct 41.0 MCV 94.7 MCH 31.2 H MCHC 32.9 RDW 13.2 Plt Count 273 MPV 9.3 Neut # (Auto) 8.5 H Lymph # (Auto) 3.7 H [place] # (Auto) 0.6 Eos # (Auto) 0.4 Baso # (Auto) 0.1 Absolute Nucleated RBC 0.00 Nucleated RBC % 0.0 Sodium 141 Potassium 4.0 Chloride 103 Carbon Dioxide 27 Anion Gap 11.0 BUN 10 Creatinine 0.7 Estimated GFR (MDRD) 92 Glucose 115 H Calcium 9.6 Total Bilirubin 0.4 AST 20 ALT 34 Alkaline Phosphatase 86 Total Protein 7.1 Albumin 3.9 Globulin 3.2 Albumin/Globulin Ratio 1.2 Lipase 25 PD MEDICAL DECISION MAKING - ED course ED course: 40-year-old woman with history of H. pylori presents with upper abdominal pain consistent with prior episodes of H. pylori. She is not tender specifically over the gallbladder. Feeling better after IV PPI, Toradol, Zofran, She has a pending outpatient test for H. pylori and another stool sample here. I am prescribing a short course of short-acting opioid pain medication for this patient. I have reviewed the patients CARGO MATE and no concerning findings were noted. I have discussed that the opioids are for short term therapy only, and will not be refilled from the ED. Departure - Departure Disposition: Home, Self Care Clinical Impression: Abdominal pain Qualifiers: Abdominal location: epigastric Qualified Code(s): R10.13 - Epigastric pain Condition: Good Record reviewed to determine appropriate education?: Yes Instructions: ED Abdominal Pain Unkn Cause Prescriptions: HYDROcod/ACETAM 5/325 [[place] 5/325] 1 - 2 tab PO Q6H PRN #10 tablet PRN Reason: Pain Omeprazole 40 mg PO DAILY #30 cap Ondansetron Odt [Zofran] 4 mg TL Q6H PRN #10 tablet PRN Reason: Nausea / Vomiting Comments: You have a H pylori test pending, if positive you will need to repeat a course of antibiotics. Return for new or worsening symptoms. Follow-up with your do ctor, next available appointment. To check on the helical back to pylori test, go to the hospital website at [email or web address], click on the my [facility] tab and sign up for the patient portal. I am prescribing a short course of narcotic pain medication for you. These are potentially dangerous and addictive medications that should be used carefully. These medications may constipate you. Take an ldla-nes-[id number] stool softener (docusate) twice daily with plenty of water while taking these medications. If you go 24 hours without a bowel movement, take [id number] miralax, per package instructions. Do not drink or drive while taking these medications. If you received narcotic or sedating medications while in the emergency department, do not drive for 24 hours. Store this medication in a safe, secure place and out of reach of children. It is a violation of federal law to give or sell this medication to another person or to use in a manner other than prescribed. The ED will not refill narcotic prescriptions, including prescriptions lost or stolen. To dispose of unwanted medications: 1. [facility] at [address] in [place] has a medication drop box. They accept prescription medications (in pill form) Friday through Friday 9:00 a.m. to 5:00 p.m. 2. The [facility] accepts prescription medications (in pill form only) for disposal year round. Call for more information. 3. Contact the [facility] for the next [facility] sponsored prescription drug collection event. , x7310, or [phone]; Note that many narcotic pain relievers also contain Tylenol/acetaminophen. Please ensure that your total dose of acetaminophen from all sources does not exceed 3 g (3000 mg) per day.
--- OUTSIDE RECORDS SUMMARY | 2020-10-30 11:20 | EXTERNAL MEDICAL SUMMARY RPT | Continuity of Care Document ---
:1980 Demographics Phone Unavailable Preferred Language Unknown Marital Status Unknown Mormon Affiliation Unknown Race Unknown Ethnic Group Unknown Author Organization [place] Address [address] [phone] Phone Allergies Encounters Medications Problems Results
[2020-10-30 11:30] LABS: BASOPHILS # (AUTO) 0.1 10^3/uL (0.0-0.1); BASOPHILS % (AUTO) 0.7 %; EOSINOPHILS # (AUTO) 0.4 10^3/uL (0.0-0.7); EOSINOPHILS % (AUTO) 3.3 %; HGB - HEMOGLOBIN 13.5 g/dL (12.0-16.0); LYMPHOCYTES # (AUTO) 3.7 10^3/uL (1.5-3.5); LYMPHOCYTES % (AUTO) 27.6 %; MEAN CORPUSCULAR HEMOGLOBIN 31.2 pg (27.0-31.0); MEAN CORPUSCULAR HGB CONC 32.9 g/dL (32.0-36.0); MEAN CORPUSCULAR VOLUME 94.7 fL (81.0-99.0); MEAN PLATELET VOLUME 9.3 fL (7.9-10.8); MONOCYTES # (AUTO) 0.6 10^3/uL (0.0-1.0); MONOCYTES % (AUTO) 4.8 %; NEUTROPHILS # (AUTO) 8.5 10^3/uL (1.5-6.6); NEUTROPHILS % (AUTO) 63.1 %; PLT - PLATELET COUNT 273 10^3/uL (130-450); RED BLOOD COUNT 4.33 10^6/uL (4.20-5.40); RED CELL DISTRIBUTION WIDTH 13.2 % (12.0-15.0); WHITE BLOOD COUNT 13.4 x10^3/uL (4.8-10.8)
[2020-10-30 11:42] LABS: ALBUMIN 3.9 g/dL (3.2-5.5); ALBUMIN/GLOBULIN RATIO 1.2 (1.0-2.2); BILIRUBIN,TOTAL 0.4 mg/dL (0.2-1.0); CALCIUM 9.6 mg/dL (8.5-10.3); CREATININE 0.7 mg/dL (0.4-1.0); TOTAL PROTEIN 7.1 g/dL (6.7-8.2)
[2020-10-30 13:07] LABS: BILIRUBIN,URINE NEGATIVE (NEGATIVE); GLUCOSE, URINE (UA) NEGATIVE (NEGATIVE); KETONES,URINE (UA) NEGATIVE (NEGATIVE); LEUKOCYTE ESTERASE, URINE NEGATIVE (NEGATIVE); NITRITE,URINE NEGATIVE (NEGATIVE); OCCULT BLOOD,URINE NEGATIVE (NEGATIVE); PH,URINE 5.5 PH (5.0-7.5); PROTEIN,URINE NEGATIVE (NEGATIVE); UROBILINOGEN,URINE 0.2 (NORMAL) E.U./dL (NORMAL)
[2020-10-30 13:08] LABS: CLARITY,URINE CLEAR (CLEAR)
[2020-10-30 13:09] LABS: HCG UR QUAL NEGATIVE
[2020-10-30 13:23] VITALS: BP 171/97
[2020-10-30 13:34] LABS: H. PYLORIS ANTIGEN STL POSITIVE (Negative)
== END 2020-10-30 13:23 | disposition home or self-care (01) ==
LOC: ED 10:56
DX: R10.13 Epigastric pain (principal); R19.7 Diarrhea, unspecified; Z87.19 Personal history of other diseases of the digestive system; Z87.11 Personal history of peptic ulcer disease; F17.200 Nicotine dependence, unspecified, uncomplicated
CPT/HCPCS: 36415; 80053; 81001; 81003; 81025; 83690; 85025; 87086; 87338; 96374; 96375; 99283

== ENCOUNTER 2020-11-10 16:03 | Emergency (ER) | payer MEDICAID ==
[2020-11-10 16:26] LABS: BASOPHILS % (AUTO) 0.9 %; EOSINOPHILS % (AUTO) 3.1 %; HCT - HEMATOCRIT 41.7 % (37.0-47.0); HGB - HEMOGLOBIN 13.8 g/dL (12.0-16.0); LYMPHOCYTES % (AUTO) 34.6 %; MEAN CORPUSCULAR HEMOGLOBIN 30.7 pg (27.0-31.0); MEAN CORPUSCULAR HGB CONC 33.1 g/dL (32.0-36.0); MEAN CORPUSCULAR VOLUME 92.9 fL (81.0-99.0); MEAN PLATELET VOLUME 9.3 fL (7.9-10.8); MONOCYTES % (AUTO) 4.4 %; NEUTROPHILS % (AUTO) 56.5 %; PLT - PLATELET COUNT 312 10^3/uL (130-450); RED BLOOD COUNT 4.49 10^6/uL (4.20-5.40); RED CELL DISTRIBUTION WIDTH 13.3 % (12.0-15.0); WHITE BLOOD COUNT 13.4 x10^3/uL (4.8-10.8)
[2020-11-10 16:29] LABS: ABNORMAL LYMPHS % (MANUAL) 0 %; BAND NEUTROPHILS % (MANUAL) 0 %
[2020-11-10 16:39] LABS: ALBUMIN 4.3 g/dL (3.2-5.5); ALBUMIN/GLOBULIN RATIO 1.2 (1.0-2.2); BILIRUBIN,TOTAL 0.4 mg/dL (0.2-1.0); CALCIUM 9.5 mg/dL (8.5-10.3); CREATININE 0.8 mg/dL (0.4-1.0); POTASSIUM 3.9 mmol/L (3.5-5.0); TOTAL PROTEIN 7.8 g/dL (6.7-8.2)
[2020-11-10 17:00] LABS: BASOPHILS # (MANUAL) 0.1 10^3/uL (0-0.1); BASOPHILS % (MANUAL) 1 %; EOSINOPHILS # (MANUAL) 0.4 10^3/uL (0-0.7); LYMPHOCYTES # (MANUAL) 4.8 10^3/uL (1.5-3.5); LYMPHOCYTES % (MANUAL) 34 %; MONOCYTES # (MANUAL) 0.7 10^3/uL (0.0-1.0); NEUTROPHILS # (MANUAL) 7.4 10^3/uL (1.5-6.6); REACTIVE LYMPHS % (MANUAL) 2 %
[2020-11-10 17:01] LABS: DIFFERENTIAL COMMENT MANUAL DIFFERENTIAL; PLATELET ESTIMATE, MANUAL NORMAL (130-450,000) (NORMAL); PLATELET MORPHOLOGY NORMAL APPEARANCE (NORMAL); RBC MORPHOLOGY (MULTIPLE) NORMAL APPEARANCE (NORMAL); WBC MORPHOLOGY (MULTIPLE) 1+ TOXIC GRANULATION (NORMAL)
[2020-11-10] MEDS ORDERED: HYDROmorphone 1 MG/ML CARPUJECT IVP STA ×2 (17:29→18:47)
--- NOTE | 2020-11-10 17:30 | ED Physician Documentation ---
PD HPI ABD PAIN - Stated complaint Stated Complaint: RT ABD PX - Chief complaint Chief Complaint: Abd Pain - History obtained from History obtained from: Patient - Additional information Additional information: Recent diagnosis of H. pylori, on antibiotics but developed severe right upper quadrant pain progressive today without nausea or vomiting. No history of cholecystectomy or appendectomy. Pain is now severe. This is unlike her previous H. pylori attacks. 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 : None HEENT: None, Other Psych: None Musculoskeletal: None Derm: None - Past Surgical History Past Surgical History: Yes /SENIOR SQL SERVER DBA: Tubal ligation, Other HEENT: Other - Present Medications Home Medications: Ambulatory Orders Medication Instructions Recorded Confirmed Sertraline [Zoloft] 50 mg PO DAILY 04/26/20 11/10/20 Albuterol Sulf [Ventolin Hfa 3 - 4 puffs INH Q4HR PRN #1 inhaler 07/23/20 11/10/20 Inhaler] Cetirizine [ZyrTEC] 10 mg PO BID #20 tablet 07/23/20 11/10/20 Amitriptyline [Elavil] 25 mg PO QPM 09/02/20 11/10/20 Montelukast [Singulair] 10 mg PO QPM 30 Days #30 tablet 09/02/20 11/10/20 Zolpidem [Ambien] 5 mg PO QPM PRN 09/02/20 11/10/20 Omeprazole 40 mg PO DAILY #30 cap 10/30/20 11/10/20 Oxycodone HCl/Acetaminophen 1 - 2 each PO Q6H PRN #14 tablet 11/10/20 [Percocet 5-325 mg Tablet] Tetracycline HCl 500 mg PO Q6HR 11/10/20 11/10/20 - Allergies Allergies/Adverse Reactions: Allergies Allergy/AdvReac Type Severity Reaction Status Date / Time aspirin Allergy Severe Anaphylaxis Verified 11/10/20 16:06 bee venom protein (honey bee) Allergy Severe Anaphylaxis Verified 11/10/20 16:06 NSAIDS (Non-Steroidal Allergy Severe Anaphylaxis Verified 11/10/20 16:06 Anti-Inflamma varenicline tartrate * Allergy Severe Blisters Verified 11/10/20 16:06 [From Chantix] metoprolol Allergy Intermediate Hives Verified 11/10/20 16:06 - Social History Does the pt smoke?: Yes Smoking Status: Current every day smoker Does the pt drink ETOH?: No Does the pt have substance abuse?: No - Immunizations Immunizations are current?: Yes Immunizations: TDAP current <10years - POLST Patient has POLST: No PD ED PE NORMAL - Vitals Vital signs reviewed: Yes - General General: Alert and oriented X 3 - HEENT HEENT: PERRL, EOMI - Neck Neck: Supple, no meningeal sign, No bony TTP - Cardiac Cardiac: RRR, No murmur - Respiratory Respiratory: No respiratory distress, Clear bilaterally - Abdomen Abdomen: Other (Focally and significantly tender in the right upper quadrant with positive Muniz sign, no diffuse abdominal tenderness.) - Back Back: No CVA TTP, No spinal TTP - Derm Derm: Normal color, Warm and dry - Extremities Extremities: No edema, No calf tenderness / cord - Neuro Neuro: Alert and oriented X 3, Normal speech Results - Vitals Vitals: Vital Signs - 24 hr 11/10/20 11/10/20 16:06 18:09 Temperature 36.5 C Heart Rate 100 76 Respiratory 20 16 Rate Blood Pressure 134/82 H 158/99 H O2 Saturation 98 98 Oxygen O2 Source Room air - Labs Labs: Laboratory Tests 11/10/20 11/10/20 11/10/20 16:20 16:20 17:19 WBC 13.4 H RBC 4.49 Hgb 13.8 Hct 41.7 MCV 92.9 MCH 30.7 MCHC 33.1 RDW 13.3 Plt Count 312 MPV 9.3 Neut # (Auto) Not Reportable Lymph # (Auto) Not Reportable [place] # (Auto) Not Reportable Eos # (Auto) Not Reportable Baso # (Auto) Not Reportable Absolute Nucleated RBC Not Reportable Total Counted 100 Band Neuts % (Manual) 0 Reactive Lymphs % (Man) 2 Abnorm Lymph % (Manual) 0 Nucleated RBC % Not Reportable Neutrophils # (Manual) 7.4 H Lymphocytes # (Manual) 4.8 H Monocytes # (Manual) 0.7 Eosinophils # (Manual) 0.4 Basophils # (Manual) 0.1 Differential Comment MANUAL DIFFERENTIAL WBC Morphology 1+ TOXIC GRANULATION Platelet Estimate NORMAL (130-450,000) Platelet Morphology NORMAL APPEARANCE RBC Morph Micro Appear NORMAL APPEARANCE Sodium 138 Potassium 3.9 Chloride 102 Carbon Dioxide 26 Anion Gap 10.0 BUN 12 Creatinine 0.8 Estimated GFR (MDRD) 79 L Glucose 102 H Calcium 9.5 Total Bilirubin 0.4 AST 20 ALT 32 Alkaline Phosphatase 80 Total Protein 7.8 Albumin 4.3 Globulin 3.5 Albumin/Globulin Ratio 1.2 Lipase 22 Urine Color YELLOW Urine Clarity CLEAR Urine pH 5.5 Ur Specific [place] >=1.030 H Urine Protein NEGATIVE Urine Glucose (UA) NEGATIVE Urine Ketones NEGATIVE Urine Occult Blood NEGATIVE Urine Nitrite NEGATIVE Urine Bilirubin NEGATIVE Urine Urobilinogen 0.2 (NORMAL) Ur Leukocyte Esterase NEGATIVE Ur Microscopic Review NOT INDICATED Urine Culture Comments NOT INDICATED Urine HCG, Qual NEGATIVE - Rads (name of study) Abdominal ultrasound and CT Radiology: Prelim report reviewed, Final report received, Discussed with rads, EMP read contemporaneously PD MEDICAL DECISION MAKING - ED course ED course: 40-year-old woman with abrupt right upper quadrant pain. Ultrasound was done and reported to me by the serology technician as having a dilated common bile duct. Thusly a CT was ordered and negative. On review of the formal read of the abdominal ultrasound there is no mention of dilated common bile duct. I am prescribing a short course of short-acting opioid pain medication for this patient. I have reviewed the patients NURSE INFORMATICIST and no concerning findings were noted. I have discussed that the opioids are for short term therapy only, and will not be refilled from the ED. Departure - Departure Disposition: 01 Home, Self Care Clinical Impression: Abdominal pain Qualifiers: Abdominal location: right upper quadrant Qualified Code(s): R10.11 - Right upper quadrant pain Condition: Good Record reviewed to determine appropriate education?: Yes Instructions: ED Abdominal Pain Unkn Cause Prescriptions: Oxycodone HCl/Acetaminophen [Percocet 5-325 mg Tablet] 1 - 2 each PO Q6H PRN #14 tablet PRN Reason: pain Comments: Take the new prescription for antibiotics that you have for H. pylori. If having persistent symptoms after that follow-up with your GI doctor for reevaluation. Return for new or worsening symptoms. I am prescribing a short course of narcotic pain medication for you. These are potentially dangerous and addictive medications that should be used carefully. These medications may constipate you. Take an lrwn-qwy-bnsynnu stool softener (docusate) twice daily with plenty of water while taking these medications. If you go 24 hours without a bowel movement, take ovhl-osl-vtzfgry miralax, per package instructions. Do not drink or drive while taking these medications. If you received narcotic or sedating medications while in the emergency department, do not drive for 24 hours. Store this medication in a safe, secure place and out of reach of children. It is a violation of federal law to give or sell this medication to another person or to use in a manner other than prescribed. The ED will not refill narcotic prescriptions, including prescriptions lost or stolen. To dispose of unwanted medications: 1. [facility] at [address] in [place] has a medication drop box. They accept prescription medications (in pill form) Friday through Friday 9:00 a.m. to 5:00 p.m. 2. The [facility] Department accepts prescription medications (in pill form only) for disposal year round. Call for more information. 3. Contact the [facility] for the next [facility] sponsored prescription drug collection event. , [phone], or [phone]; Note that many narcotic pain relievers also contain Tylenol/acetaminophen. Please ensure that your total dose of acetaminophen from all sources does not exceed 3 g (3000 mg) per day.
[2020-11-10] MEDS ORDERED: ONDANSETRON 4 MG/2 ML VIAL IVP STA ×2 (17:39→18:47)
[2020-11-10 17:58] LABS: BILIRUBIN,URINE NEGATIVE (NEGATIVE); GLUCOSE, URINE (UA) NEGATIVE (NEGATIVE); KETONES,URINE (UA) NEGATIVE (NEGATIVE); LEUKOCYTE ESTERASE, URINE NEGATIVE (NEGATIVE); NITRITE,URINE NEGATIVE (NEGATIVE); OCCULT BLOOD,URINE NEGATIVE (NEGATIVE); PH,URINE 5.5 PH (5.0-7.5); PROTEIN,URINE NEGATIVE (NEGATIVE); UROBILINOGEN,URINE 0.2 (NORMAL) E.U./dL (NORMAL)
[2020-11-10 18:02] LABS: CLARITY,URINE CLEAR (CLEAR); HCG UR QUAL NEGATIVE
[2020-11-10] MEDS ORDERED: IOVERSOL 320 100 ML VIAL IVP ONE ×2 (18:43→19:07)
--- NOTE | 2020-11-10 18:57 | Ultrasound Report ---
PROCEDURE: Abdomen Limited INDICATIONS: ruq pain TECHNIQUE: Real-time scanning was performed of the abdominal and retroperitoneal organs, with image documentatio n. COMPARISON: CT abdomen pelvis 01/22/2020 FINDINGS: Liver: Liver is enlarged measuring 21.7 cm with prominent steatosis. Gallbladder: The gallbladder demonstrates no stones. Wall thickness is within normal limits measuring 2.3 cm. Biliary ducts: Intrahepatic bile ducts are non-dilated. Extrahepatic bile duct caliber measures 6.5 mm. Normal is 6-7 mm or less in diameter, or 10 mm or less post-cholecystectomy. Pancreas: Obscured. Kidneys: Kidneys are normal in size and echotexture. Right kidney measures 10.0 cm long. Simple ri ght renal cyst is noted measuring 2.5 x 2.3 x 62.3 cm. No hydronephrosis or nephrolithiasis. No ester d masses. IMPRESSION: 1. Hepatic steatosis with hepatomegaly. 2. Gallbladder is unremarkable. Reviewed by: Brianna Meyer MD on 11/10/2020 6:56 PM PDT Approved by: Brianna Meyer MD on 11/10/2020 6:56 PM PDT Station ID: [id number]
--- NOTE | 2020-11-10 19:19 | CT Report ---
PROCEDURE: Abdomen/Pelvis W INDICATIONS: IV only, RUQ pain, abd sono CONTRAST: IV CONTRAST: Optiray 320 ml: 100 PO CONTRAST: *NO PO CONTRAST TECHNIQUE: After the administration of IV contrast, 5 mm thick sections acquired from the diaphragms to the symp hysis. 5 mm thick coronal and sagittal reformats were acquired. For radiation dose reduction, the f ollowing was used: automated exposure control, adjustment of mA and/or kV according to patient size. COMPARISON: CT abdomen pelvis 01/22/2020, abdominal ultrasound 11/10/2020. FINDINGS: Image quality: Excellent. ABDOMEN: Lung bases: Lung bases are clear. Heart size is normal. Solid organs: Liver is enlarged with steatosis. The spleen is size and enhancement. Gallbladder is unremarkable Biliary system is non dilated. Pancreas enhances normally. No adrenal nodules. Kidne ys demonstrate normal size and enhancement, without hydronephrosis. Simple right renal cyst is noted . Peritoneum and bowel: Bowel loops demonstrate normal wall thickness and caliber. No free fluid or a ir. The appendix is normal. No appendicoliths are identified. Calcifications are noted in the cecum, new compared to prior exam. Scattered colonic diverticula are present without associated inflammator y change. Nodes and vessels: No retroperitoneal or mesenteric adenopathy by size criteria. Aorta and inferior vena cava are normal in size. Miscellaneous: No ventral hernias. PELVIS: Genitourinary: Bladder wall thickness is normal. Uterus is lobulated suggestive of fibroids. Miscellaneous: No inguinal hernias or adenopathy. Bones: No suspicious bony lesions. No vertebral body compression fractures. IMPRESSION: 1. Appendix is normal. 2. Gallbladder is unremarkable. 2. Diverticulosis. Reviewed by: Brianna Meyer MD on 11/10/2020 7:18 PM PDT Approved by: Brianna Meyer MD on 11/10/2020 7:18 PM PDT Station ID: [id number]
[2020-11-10 19:53] VITALS: BP 146/89
== END 2020-11-10 19:53 | disposition home or self-care (01) ==
LOC: ED 16:03
DX: R10.11 Right upper quadrant pain (principal); K76.0 Fatty (change of) liver, not elsewhere classified; K57.30 Diverticulosis of large intestine without perforation or abscess without bleeding; F17.200 Nicotine dependence, unspecified, uncomplicated
CPT/HCPCS: 36415; 74177; 76705; 80053; 81003; 81025; 83690; 85025; 96374; 96375; 96376; 99284; J1170; Q9967; 81001; 87086

== ENCOUNTER 2021-04-06 12:42 | Emergency (ER) | payer MEDICAID ==
[2021-04-06 12:54] VITALS: BP 150/92
--- NOTE | 2021-04-06 13:40 | XRAY Report ---
PROCEDURE: Ankle 3 View RT INDICATIONS: Trauma TECHNIQUE: 3 views of the ankle were acquired. COMPARISON: None. FINDINGS: Bones: Subtle radiolucency and cortical irregularity involving tip of lateral malleolus is seen. No o ther fracture or dislocation. Ankle mortise is normally aligned. No suspicious bony lesions. Soft tissues: Mild lateral ankle soft tissue swelling is seen. No tibiotalar joint effusion. Achilles tendon appea rs normal. IMPRESSION: Mild lateral ankle soft tissue swelling. Suggestion of subtle transverse fracture throug h tip of lateral malleolus. No other fracture or dislocation. Reviewed by: Yvon Jose MD on 04/06/2021 1:39 PM PST Approved by: Yvon Jose MD on 04/06/2021 1:39 PM PST Station ID: [id number]
--- NOTE | 2021-04-06 14:21 | ED Physician Documentation ---
PD HPI LOWER EXT INJURY - Stated complaint Stated Complaint: RT ANKLE INJURY - Chief complaint Chief Complaint: Trauma Ext - History obtained from History obtained from: Patient - History of Present Illness PD HPI LOW EXT INJURY LOCATION: Right, Ankle Type of injury: Fall, Twist Where injury occurred: Other (vacation yesterday in [place]) Timing - onset: Yesterday Timing - duration: Days (1) Pain level max: 7 Pain level now: 6 Improved by: Rest, Ice - Additional information Additional information: Patient is a 40-year-old female who was vacationing at [place] when she accidentally rolled her ankle yesterday. Had increasing pain over the past 24 hours. Increased swelling and pain today. Worse with walking, better with rest. No other injuries. Review of Systems Constitutional: denies: Fever Skin: denies: Rash Neurologic: denies: Headache PD PAST MEDICAL HISTORY - Past Medical History Cardiovascular: None Respiratory: Asthma Neuro: Migraines Endocrine/Autoimmune: None GI: GERD, Ulcers DIRECTOR OF RESERVATIONS: None : None HEENT: None, Other Psych: None Musculoskeletal: None Derm: None - Past Surgical History Past Surgical History: Yes /DIRECTOR OF RESERVATIONS: Tubal ligation, Other HEENT: Other - Present Medications Home Medications: Ambulatory Orders Medication Instructions Recorded Confirmed Sertraline [Zoloft] 50 mg PO DAILY 04/26/20 11/10/20 Albuterol Sulf [Ventolin Hfa 3 - 4 puffs INH Q4HR PRN #1 inhaler 07/23/20 11/10/20 Inhaler] Cetirizine [ZyrTEC] 10 mg PO BID #20 tablet 07/23/20 11/10/20 Amitriptyline [Elavil] 25 mg PO QPM 09/02/20 11/10/20 Montelukast [Singulair] 10 mg PO QPM 30 Days #30 tablet 09/02/20 11/10/20 Zolpidem [Ambien] 5 mg PO QPM PRN 09/02/20 11/10/20 Omeprazole 40 mg PO DAILY #30 cap 10/30/20 11/10/20 Oxycodone HCl/Acetaminophen 1 - 2 each PO Q6H PRN #14 tablet 11/10/20 [Percocet 5-325 mg Tablet] Tetracycline HCl 500 mg PO Q6HR 11/10/20 11/10/20 HYDROcod/ACETAM 5/325 [[place] 5/325] 1 - 2 ea PO Q6H PRN #14 tablet 04/06/21 - Allergies Allergies/Adverse Reactions: Allergies Allergy/AdvReac Type Severity Reaction Status Date / Time aspirin Allergy Severe Anaphylaxis Verified 04/06/21 12:54 bee venom protein (honey bee) Allergy Severe Anaphylaxis Verified 04/06/21 12:54 NSAIDS (Non-Steroidal Allergy Severe Anaphylaxis Verified 04/06/21 12:54 Anti-Inflamma varenicline tartrate * Allergy Severe Blisters Verified 04/06/21 12:54 [From Chantix] metoprolol Allergy Intermediate Hives Verified 04/06/21 12:54 - Social History Does the pt smoke?: Yes Smoking Status: Current every day smoker Does the pt drink ETOH?: No Does the pt have substance abuse?: No - Immunizations Immunizations are current?: Yes Immunizations: TDAP current <10years - POLST Patient has POLST: No PD ED PE NORMAL - Vitals Vital signs reviewed: Yes - General General: Alert and oriented X 3, No acute distress - HEENT HEENT: Moist mucous membranes - Neck Neck: Supple, no meningeal sign - Derm Derm: Warm and dry - Extremities Extremities: Other (Mild swelling to the right lateral malleolus. Tender to palpation over this area as well. Neurovascularly intact. Mild ecchymosis.) - Neuro Neuro: Alert and oriented X 3 - Psych Psych: Normal mood, Normal affect Results - Vitals Vitals: Vital Signs - 24 hr 04/06/21 12:52 Temperature 36.1 C L Heart Rate 87 Respiratory 16 Rate Blood Pressure 150/92 H O2 Saturation 98 Oxygen O2 Source Room air - Rads (name of study) right Ankle x-ray Radiology: Final report received, EMP read contemporaneously, See rad report (IMPRESSION: Mild lateral ankle soft tissue swelling. Suggestion of subtle transverse fracture through tip of lateral malleolus. No other fracture or dislocation. ) PD MEDICAL DECISION MAKING - ED course Complexity details: reviewed results, re-evaluated patient, considered differential, d/w patient ED course: 40-year-old female with what appears to be a right ankle sprain clinically. Po ssible subtle transverse fracture through the tip of the lateral malleolus. Patient does not want to be in a full fiberglass splint. She does not want a walking boot either. We placed her in a gel splint and we will treat this as a sprain. Also given crutches. I will prescribe pain medication for home. Patient will follow up with orthopedics for further care. I am prescribing a short course of short-acting opioid pain medication for this patient. I have reviewed the patients WAIST FITTER and no concerning findings were noted. I have discussed that the opioids are for short term therapy only, and will not be refilled from the ED. patient counseled regarding signs and symptoms for which I believe and urgent re-evaluation would be necessary. Patient with good understanding of and agreement to plan and is comfortable going home at this time This document was made in part using voice recognition software. While efforts are made to proofread this document, sound alike and grammatical errors may occur. Departure - Departure Disposition: 01 Home, Self Care Clinical Impression: Right ankle sprain Qualifiers: Encounter type: initial encounter Involved ligament of ankle: unspecified ligament Qualified Code(s): S93.401A - Sprain of unspecified ligament of right ankle, initial encounter Condition: Good Instructions: ED Sprain Ankle Follow-Up: Terence Can MD [Primary Care Provider] - Within 1 week Prescriptions: HYDROcod/ACETAM 5/325 [[place] 5/325] 1 - 2 ea PO Q6H PRN #14 tablet PRN Reason: Pain Comments: Please follow-up with your doctor for repeat x-rays in 1 week. It is possible that there is a small fracture at the tip of your lateral malleolus as we discussed. This may be artifact as well. Either way this should heal without difficulty. Your prescription was sent to [facility] in [place]. Please return if you worsen. I am prescribing a short course of narcotic pain medication for you. These are potentially dangerous and addictive medications that should be used carefully. These medications may constipate you. Take an ikfg-klt-eoqwamu stool softener (docusate) twice daily with plenty of water while taking these medications. If you go 24 hours without a bowel movement, take rqnn-gny-xwphngj miralax, per package instructions. Do not drink or drive while taking these medications. If you received narcotic or sedating medications while in the emergency department, do not drive for 24 hours. Store this medication in a safe, secure place and out of reach of children. It is a violation of federal law to give or sell this medication to another person or to use in a manner other than prescribed. The ED will not refill narcotic prescriptions, including prescriptions lost or stolen. To dispose of unwanted medications: 1. [facility] at [address] in [place] has a medication drop box. They accept prescription medications (in pill form) Friday through Friday 9:00 a.m. to 5:00 p.m. 2. The [facility] Department accepts prescription medications (in pill form only) for disposal year round. Call for more information. 3. Contact the [facility] for the next [facility] sponsored prescription drug collection event. , [phone], or [phone]; Discharge Date/Time: 04/06/21 14:59
== END 2021-04-06 14:59 | disposition home or self-care (01) ==
LOC: ED 12:42
DX: S93.401A Sprain of unspecified ligament of right ankle, initial encounter (principal); X50.1XXA Overexertion from prolonged static or awkward postures, initial encounter; Y93.01 Activity, walking, marching and hiking; Y92.831 Amusement park as the place of occurrence of the external cause; F17.200 Nicotine dependence, unspecified, uncomplicated
CPT/HCPCS: 99283; 99284

== ENCOUNTER 2021-07-26 10:40 | Emergency (ER) | payer MEDICAID ==
[2021-07-26] MEDS ORDERED: SODIUM CHLORIDE 0.9% 1,000 ML IV STA (10:44)
[2021-07-26 10:55] LABS: BASOPHILS # (AUTO) 0.1 10^3/uL (0.0-0.1); BASOPHILS % (AUTO) 0.5 %; EOSINOPHILS # (AUTO) 0.2 10^3/uL (0.0-0.7); EOSINOPHILS % (AUTO) 1.4 %; HCT - HEMATOCRIT 42.8 % (37.0-47.0); HGB - HEMOGLOBIN 14.2 g/dL (12.0-16.0); LYMPHOCYTES # (AUTO) 4.7 10^3/uL (1.5-3.5); LYMPHOCYTES % (AUTO) 27.8 %; MEAN CORPUSCULAR HGB CONC 33.2 g/dL (32.0-36.0); MEAN CORPUSCULAR VOLUME 90.3 fL (81.0-99.0); MEAN PLATELET VOLUME 9.6 fL (7.9-10.8); MONOCYTES # (AUTO) 0.7 10^3/uL (0.0-1.0); MONOCYTES % (AUTO) 3.9 %; NEUTROPHILS # (AUTO) 11.1 10^3/uL (1.5-6.6); NEUTROPHILS % (AUTO) 65.9 %; PLT - PLATELET COUNT 317 10^3/uL (130-450); RED BLOOD COUNT 4.74 10^6/uL (4.20-5.40); RED CELL DISTRIBUTION WIDTH 13.2 % (12.0-15.0); WHITE BLOOD COUNT 16.8 x10^3/uL (4.8-10.8)
--- NOTE | 2021-07-26 11:11 | XRAY Report ---
PROCEDURE: Chest 1 View X-Ray INDICATIONS: Chest pain TECHNIQUE: One view of the chest was acquired. COMPARISON: Chest x-ray 08/02/2020, 07/31/2019. FINDINGS: Surgical changes and devices: None. Lungs and pleura: No pleural effusions or pneumothorax. Lungs are clear without definite acute airs pace opacities. Mediastinum: Mediastinal contours appear normal. Heart size is normal. Bones and chest wall: No suspicious bony lesions. Overlying soft tissues appear unremarkable. IMPRESSION: 1. No acute cardiopulmonary disease. Reviewed by: Delvin Delgado MD on 07/26/2021 11:10 AM [facility] Approved by: Delvin Delgado MD on 07/26/2021 11:10 AM [facility] Station ID: [id number]
[2021-07-26 11:14] LABS: ALBUMIN 4.1 g/dL (3.2-5.5); ALBUMIN/GLOBULIN RATIO 1.2 (1.0-2.2); BILIRUBIN,TOTAL 0.5 mg/dL (0.2-1.0); CALCIUM 9.5 mg/dL (8.5-10.3); CREATININE 0.8 mg/dL (0.4-1.0); POTASSIUM 3.9 mmol/L (3.5-5.0); TOTAL PROTEIN 7.6 g/dL (6.7-8.2)
[2021-07-26] MEDS ORDERED: HYDROmorphone 1 MG/ML CARPUJECT IVP STA (11:48)
[2021-07-26] MEDS ORDERED: ONDANSETRON 4 MG/2 ML VIAL IVP STA (11:48)
[2021-07-26] MEDS ORDERED: IOVERSOL 320 100 ML VIAL IVP ONE ×2 (13:02→14:30)
--- NOTE | 2021-07-26 14:13 | CT Report ---
PROCEDURE: Abdomen/Pelvis W INDICATIONS: R abd pain CONTRAST: IV CONTRAST: Optiray 320 ml: 100 PO CONTRAST: *NO PO CONTRAST TECHNIQUE: After the administration of intravenous contrast, 5 mm thick sections acquired from the diaphragms to the symphysis. 5 mm thick coronal and sagittal reformats were acquired. For radiation dose reducti on, the following was used: automated exposure control, adjustment of mA and/or kV according to candace ent size. COMPARISON: CT abdomen pelvis 11/10/2020, 08/16/2018. FINDINGS: Image quality: Excellent. ABDOMEN: Lung bases: There is mild dependent atelectasis bilaterally. Heart size is normal. Solid organs: There is diffuse hypoattenuation of the liver consistent with fatty infiltration. Gallb ladder appears within normal limits without calcified gallstones. Biliary system is non dilated. The spleen is normal in size. Pancreas enhances normally without peripancreatic fat stranding or fluid c ollections. There is a small left adrenal nodule measuring up to 1.0 cm which appears unchanged chago red to the prior studies. Kidneys demonstrate no hydronephrosis. An exophytic right renal cyst is red emonstrated. Peritoneum and bowel: Small bowel loops demonstrate normal wall thickness and caliber. The appendix i s normal in appearance. There is mild segmental wall thickening of the transverse colon which reflect a mild colitis. There is colonic diverticulosis without acute diverticulitis. No free fluid or air. Nodes and vessels: No retroperitoneal or mesenteric adenopathy by size criteria. Aorta and inferior vena cava are normal in size. Miscellaneous: No ventral hernias. PELVIS: Genitourinary: Bladder wall thickness is normal. The uterus and ovaries appear within normal size li mits. Miscellaneous: No inguinal hernias or adenopathy. Bones: No suspicious bony lesions. No vertebral body compression fractures. IMPRESSION: 1. Mild segmental wall thickening of the transverse colon may reflect a mild colitis. 2. Colonic diverticulosis without acute diverticulitis. 3. No evidence of appendicitis. 4. Hepatic steatosis. Reviewed by: Delvin Delgado MD on 07/26/2021 2:11 PM PST Approved by: Delvin Delgado MD on 07/26/2021 2:11 PM PST Station ID: [id number]
[2021-07-26] MEDS ORDERED: DROPERIDOL 5 MG/2 ML VIAL IVP STA (14:21)
--- NOTE | 2021-07-26 14:47 | ED Physician Documentation ---
PD HPI ABD PAIN - Stated complaint Stated Complaint: CHEST/ABD PX, DIZZY - Chief complaint Chief Complaint: Cardiac - History obtained from History obtained from: Patient - Additional information Additional information: Patient comes to the emergency department chief complaint of nausea, vomiting, and right upper quadrant pain has been going on for the last couple of weeks. Patient states she got Covid for the second time a few weeks ago and has just not felt right since. She states that she did not feel like she was "got sick" with Covid but that the vomiting and abdominal pain started up afterward and that she intermittently has trouble holding food and liquids down. Patient is concerned because she has right upper quadrant pain. She does not have any history of liver or gallbladder issues and still has all her organs. No family history that she knows of of Laurie cystitis/cholelithiasis, though she does states she was adopted. No chest pain. No fevers. No other complaints at this time. Review of Systems Ten Systems: 10 systems reviewed and negative Constitutional: reports: Reviewed and negative Eyes: reports: Reviewed and negative Ears: reports: Reviewed and negative Nose: reports: Reviewed and negative Throat: reports: Reviewed and negative Cardiac: reports: Reviewed and negative Respiratory: reports: Reviewed and negative GI: reports: Abdominal Pain, Nausea, Vomiting : reports: Reviewed and negative Skin: reports: Reviewed and negative Musculoskeletal: reports: Reviewed and negative Neurologic: reports: Reviewed and negative Psychiatric: reports: Reviewed and negative Endocrine: reports: Reviewed and negative Immunocompromised: reports: Reviewed and negative PD PAST MEDICAL HISTORY - Past Medical History Cardiovascular: None Respiratory: Asthma Neuro: Migraines Endocrine/Autoimmune: None GI: GERD, Ulcers 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 : None HEENT: None, Other Psych: None Musculoskeletal: None Derm: None - Past Surgical History Past Surgical History: 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, Other HEENT: Other - Present Medications Home Medications: Ambulatory Orders Medication Instructions Recorded Confirmed Sertraline [Zoloft] 50 mg PO DAILY 04/26/20 11/10/20 Albuterol Sulf [Ventolin Hfa 3 - 4 puffs INH Q4HR PRN #1 inhaler 07/23/20 11/10/20 Inhaler] Cetirizine [ZyrTEC] 10 mg PO BID #20 tablet 07/23/20 11/10/20 Amitriptyline [Elavil] 25 mg PO QPM 09/02/20 11/10/20 Montelukast [Singulair] 10 mg PO QPM 30 Days #30 tablet 09/02/20 11/10/20 Zolpidem [Ambien] 5 mg PO QPM PRN 09/02/20 11/10/20 Omeprazole 40 mg PO DAILY #30 cap 10/30/20 11/10/20 Oxycodone HCl/Acetaminophen 1 - 2 each PO Q6H PRN #14 tablet 11/10/20 [Percocet 5-325 mg Tablet] Tetracycline HCl 500 mg PO Q6HR 11/10/20 11/10/20 HYDROcod/ACETAM 5/325 [[place]view 5/325] 1 - 2 ea PO Q6H PRN #14 tablet 04/06/21 HYDROcod/ACETAM 5/325 [[place] 5/325] 1 - 2 tablet PO Q6H PRN #14 tablet 07/26/21 Omeprazole 40 mg PO DAILY #20 cap 07/26/21 Ondansetron Odt [Zofran] 4 mg TL Q6H PRN #10 tablet 07/26/21 - Allergies Allergies/Adverse Reactions: Allergies Allergy/AdvReac Type Severity Reaction Status Date / Time aspirin Allergy Severe Anaphylaxis Verified 07/26/21 10:48 bee venom protein (honey bee) Allergy Severe Anaphylaxis Verified 07/26/21 10:48 NSAIDS (Non-Steroidal Allergy Severe Anaphylaxis Verified 07/26/21 10:48 Anti-Inflamma varenicline tartrate * Allergy Severe Blisters Verified 07/26/21 10:48 [From Chantix] metoprolol Allergy Intermediate Hives Verified 07/26/21 10:48 - Social History Does the pt smoke?: Yes Smoking Status: Current every day smoker Does the pt drink ETOH?: No Does the pt have substance abuse?: No - Immunizations Immunizations are current?: Yes Immunizations: TDAP current <10years - POLST Patient has POLST: No PD ED PE NORMAL - Vitals Vital signs reviewed: Yes - General General: Alert and oriented X 3, No acute distress, Well developed/nourished, Other (Patient appears moderately uncomfortable but otherwise in no apparent distress.) - HEENT HEENT: Atraumatic, PERRL, EOMI, Moist mucous membranes - Neck Neck: Supple, no meningeal sign - Cardiac Cardiac: RRR, No murmur, Strong equal pulses - Respiratory Respiratory: No respiratory distress, Clear bilaterally - Abdomen Abdomen: Soft, Other (Obese, right upper quadrant tenderness, no rebound or guarding.) - Derm Derm: Normal color, Warm and dry, No rash - Extremities Extremities: No deformity, No edema - Neuro Neuro: Alert and oriented X 3, decorator street and building 2-12 intact, Normal speech - Psych Psych: Normal mood, Normal affect Results - Vitals Vitals: Vital Signs - 24 hr 07/26/21 07/26/21 07/26/21 10:48 11:00 11:30 Temperature 37.2 C Heart Rate 103 H 76 80 Respiratory 13 Rate Blood Pressure 163/95 H 139/100 H 135/80 H O2 Saturation 100 99 99 07/26/21 07/26/21 07/26/21 12:00 12:30 13:00 Temperature 36.6 C Heart Rate 78 82 82 Respiratory Rate Blood Pressure 110/46 L 134/100 H 162/100 H O2 Saturation 99 98 99 07/26/21 07/26/21 07/26/21 14:30 15:20 15:40 Temperature Heart Rate 76 72 80 Respiratory 18 Rate Blood Pressure 145/100 H 140/89 H 138/90 H O2 Saturation 99 99 100 Oxygen O2 Source Room air - Labs Labs: Laboratory Tests 07/26/21 07/26/21 07/26/21 10:51 10:51 10:51 WBC 16.8 H RBC 4.74 Hgb 14.2 Hct 42.8 MCV 90.3 MCH 30.0 MCHC 33.2 RDW 13.2 Plt Count 317 MPV 9.6 Neut # (Auto) 11.1 H Lymph # (Auto) 4.7 H Andrew # (Auto) 0.7 Eos # (Auto) 0.2 Baso # (Auto) 0.1 Absolute Nucleated RBC 0.00 Nucleated RBC % 0.0 Sodium 137 Potassium 3.9 Chloride 102 Carbon Dioxide 23 Anion Gap 12.0 BUN 15 Creatinine 0.8 Estimated GFR (MDRD) 79 L Glucose 102 H Calcium 9.5 Total Bilirubin 0.5 AST 45 H ALT 93 H Alkaline Phosphatase 88 Troponin I High Sens 3.3 Total Protein 7.6 Albumin 4.1 Globulin 3.5 Albumin/Globulin Ratio 1.2 Lipase 27 - Rads (name of study) CT abdomen and pelvis Radiology: Final report received, EMP read indepedently, See rad report (Mild segmental thickening of colon wall. Diverticulosis without diverticulitis.) PD MEDICAL DECISION MAKING - ED course Complexity details: reviewed results, re-evaluated patient, considered differential, d/w patient ED course: The patient was treated symptomatically with Dilaudid and Zofran, followed later by droperidol for continued nausea. Labs were unremarkable. CT scan showed very mild thickening of the colon wall and diverticulosis, but no diverticulitis. Otherwise CT was unremarkable. The patient was found to be overall feeling better upon reevaluation. I have advised her regarding symptomatic treatment at home and the need for follow-up to discuss the possibility of endoscopy if her symptoms are not improving over the next week or 2. I have prescribed the patient antiemetics, PPI, and analgesia for home. We have discussed the usual indications for return. Departure - Departure Disposition: Home, Self Care Clinical Impression: Vomiting Qualifiers: Vomiting type: bilious vomiting Nausea presence: with nausea Qualified Code(s): R11.14 - Bilious vomiting Abdominal pain Qualifiers: Abdominal location: right upper quadrant Qualified Code(s): R10.11 - Right upper quadrant pain Condition: Stable Instructions: ED Abdominal Pain Female Non-Specific Abdominal Pain, ED Nausea Vomiting Prescriptions: HYDROcod/ACETAM 5/325 [Broadview 5/325] 1 - 2 tablet PO Q6H PRN #14 tablet PRN Reason: Pain Omeprazole 40 mg PO DAILY #20 cap Ondansetron Odt [Zofran] 4 mg TL Q6H PRN #10 tablet PRN Reason: Nausea / Vomiting Comments: Your labs look fairly good. CT scan actually does not show any concerning acute abnormalities. It is possible that you have developed inflammation of the stomach and first part of your small intestine, which could account from for the pain that you are having. The next best test to evaluate this would be an endoscopy of the upper GI tract, all the way to your small intestine. It is possible that you have an ulcer preulcer condition and this would help to diagnose that and would explain your pain. Please take the medication that has been prescribed for nausea, stomach inflammation, and pain. Your prescriptions have been electronically transmitted to [facility] pharmacy in [place]. Discharge Date/Time: 07/26/21 15:41
[2021-07-26 15:41] VITALS: BP 138/90
== END 2021-07-26 15:41 | disposition home or self-care (01) ==
LOC: ED 10:40
DX: R11.14 Bilious vomiting (principal); R10.11 Right upper quadrant pain; F17.200 Nicotine dependence, unspecified, uncomplicated
CPT/HCPCS: 36415; 71045; 74177; 80053; 83690; 84484; 85025; 93005; 96374; 96375; 99283; 99284; J1170; Q9967

== ENCOUNTER 2021-11-17 16:52 | Emergency (ER) | payer MEDICAID ==
[2021-11-17 17:13] VITALS: BP 173/89
--- NOTE | 2021-11-17 18:26 | ED Physician Documentation ---
PD HPI BACK PAIN - Stated complaint Stated Complaint: LEFT LEG PX - Chief complaint Chief Complaint: Back Pain - History obtained from History obtained from: Patient, Family - History of Present Illness Pain level max: 7 Pain level now: 6 Location: Lower, Left Quality: Pain, Similar to prior episodes Associated symptoms: No: Fever, Weakness, Numbness, Incontinent of urine, Unable to urinate, Hematuria, Incontinent of stool Improves with: Rest Worsened by: Movement, Lifting Contributing factors: Lifting Recently seen: Not recently seen - Additional information Additional information: 41-year-old female presents to the emergency department with low back pain that radiates to the left leg. 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 Worse with movement, better with rest. No discrete trauma. No IV drug use. 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, Other HEENT: Other - Present Medications Home Medications: Ambulatory Orders Medication Instructions Recorded Confirmed Sertraline [Zoloft] 50 mg PO DAILY 04/26/20 11/17/21 Amitriptyline [Elavil] 25 mg PO QPM 09/02/20 11/17/21 Montelukast [Singulair] 10 mg PO QPM 30 Days #30 tablet 09/02/20 11/17/21 Zolpidem [Ambien] 5 mg PO QPM PRN 09/02/20 11/17/21 Loratadine/Pseudoephedrine 1 tab PO DAILY PRN #14 tab 11/10/21 11/17/21 [Allerclear D-24Hr ER Tablet] predniSONE [Deltasone] 10 mg PO [id number] #42 tab 11/10/21 11/17/21 Albuterol Sulf [Ventolin Hfa 1 - 2 puffs INH Q4HR PRN 11/17/21 11/17/21 Inhaler] Fluticasone 110 Mcg [Flovent] 1 puffs IH DAILY 11/17/21 11/17/21 Gabapentin [Neurontin] 300 mg PO TID #30 cap 11/17/21 HYDROcod/ACETAM 5/325 [Somers 5/325] 1 - 2 ea PO Q6H PRN #14 tablet 11/17/21 - Allergies Allergies/Adverse Reactions: Allergies Allergy/AdvReac Type Severity Reaction Status Date / Time aspirin Allergy Severe Anaphylaxis Verified 11/17/21 17:09 bee venom protein (honey bee) Allergy Severe Anaphylaxis Verified 11/17/21 17:09 NSAIDS (Non-Steroidal Allergy Severe Anaphylaxis Verified 11/17/21 17:09 Anti-Inflamma varenicline tartrate * Allergy Severe Blisters Verified 11/17/21 17:09 [From Chantix] metoprolol Allergy Intermediate Hives Verified 11/17/21 17:09 - Social History Does the pt smoke?: Yes Smoking Status: Current every day smoker Does the pt drink ETOH?: No Does the pt have substance abuse?: No - Immunizations Immunizations are current?: Yes Immunizations: TDAP current <10years - POLST Patient has POLST: No PD ED PE NORMAL - Vitals Vital signs reviewed: Yes - General General: Alert and oriented X 3, No acute distress - Back Back: No spinal TTP, Other (No midline tenderness to palpation or percussion. No step-off or deformity. No paraspinal spasm) - Derm Derm: Warm and dry - Extremities Extremities: No edema, No calf tenderness / cord - Neuro Neuro: Alert and oriented X 3, No motor deficit, No sensory deficit, Other (Normal bilateral lower extremity patellar and ankle jerk reflexes. Normal great toe extension bilaterally. no saddle anesthesia) Results - Vitals Vitals: Vital Signs - 24 hr 11/17/21 17:09 Temperature 36.6 C Heart Rate 86 Respiratory 18 Rate Blood Pressure 173/89 H O2 Saturation 97 Oxygen O2 Source Room air PD MEDICAL DECISION MAKING - ED course Complexity details: reviewed results, re-evaluated patient, considered differential (No cauda equina, no spinal epidural abscess, no fracture, no aortic dissection or evidence of aneursym rupture), d/w patient ED course: 41-year-old female with what appears to be sciatica going to the left leg. She is allergic to NSAIDs. Anaphylaxis. We will place on pain medication for home and trial her on gabapentin as well. We will have her follow-up with her doctor for further care and possible physical therapy as needed. No evidence of cauda equina, epidural abscess. No indication for emergent imaging. Patient counseled regarding signs and symptoms for which I believe and urgent re- evaluation would be necessary. Patient with good understanding of and agreement to plan and is comfortable going home at this time This document was made in part using voice recognition software. While efforts are made to proofread this document, sound alike and grammatical errors may occur. Departure - Departure Disposition: 01 Home, Self Care Clinical Impression: Sciatica Qualifiers: Laterality: left Qualified Code(s): M54.32 - Sciatica, left side Condition: Good Instructions: ED Sciatica Follow-Up: Terence Can MD [Primary Care Provider] - Within 1 week Prescriptions: Gabapentin [Neurontin] 300 mg PO TID #30 cap HYDROcod/ACETAM 5/325 [Somers 5/325] 1 - 2 ea PO Q6H PRN #14 tablet PRN Reason: Pain Comments: Your prescriptions were sent to [facility] in [place]. Use the medication as prescribed. Follow-up with your doctor for further care. Physical therapy can sometimes be helpful for sciatica. Continue gentle stretching as well. I am prescribing a short course of narcotic pain medication for you. These are potentially dangerous and addictive medications that should be used carefully. These medications may constipate you. Take an crmv-[id number] stool softener (docusate) twice daily with plenty of water while taking these medications. If you go 24 hours without a bowel movement, take [id number] miralax, per package instructions. Do not drink or drive while taking these medications. If you received narcotic or sedating medications while in the emergency department, do not drive for 24 hours. Store this medication in a safe, secure place and out of reach of children. It is a violation of federal law to give or sell this medication to another person or to use in a manner other than prescribed. The ED will not refill narcotic prescriptions, including prescriptions lost or stolen. To dispose of unwanted medications: 1. [facility] at [address] [facility] in [place] has a medication drop box. They accept prescription medications (in pill form) Friday through Friday 9:00 a.m. to 5:00 p.m. 2. [facility] [employer] accepts prescription medications (in pill form only) for disposal year round. Call for more information. 3. Contact the [facility] for the next [facility] sponsored prescription drug collection event. , [phone], or [phone]; Discharge Date/Time: 11/17/21 18:43
[2021-11-17] MEDS: GABAPENTIN 100 MG CAPSULE PO STA (18:37)
[2021-11-17] MEDS: HYDROcod/ACETAM 5/325 MG TABLET PO STA (18:37)
== END 2021-11-17 18:43 | disposition home or self-care (01) ==
LOC: ED 16:52
DX: M54.32 Sciatica, left side (principal); F17.200 Nicotine dependence, unspecified, uncomplicated
CPT/HCPCS: 99282; A9270

== ENCOUNTER 2021-12-11 10:42 | Emergency (ER) | payer MEDICAID ==
[2021-12-11 10:53] VITALS: BP 190/75
--- NOTE | 2021-12-11 11:33 | ED Physician Documentation ---
History of Present Illness - Stated complaint Stated Complaint: ALLERGIES - Chief complaint Chief Complaint: Allergic Rx - Additonal information Additional information: Patient is a 41-year-old female presenting to the emergency department chief complaint of allergies. Reports chronic recurrent seasonal allergies. States history no cell polyps. Reports in the past she has made multiple "tapers of prednisone" to help with her symptoms. Reports was using Benadryl, Zyrtec, Flonase, Afrin at home. Denies fever, chills, chest pain, shortness of breath, abdominal pain, nausea, vomiting, diarrhea, constipation. 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, Other HEENT: Other - Present Medications Home Medications: Ambulatory Orders Medication Instructions Recorded Confirmed Sertraline [Zoloft] 50 mg PO DAILY 04/26/20 11/17/21 Amitriptyline [Elavil] 25 mg PO QPM 09/02/20 11/17/21 Montelukast [Singulair] 10 mg PO QPM 30 Days #30 tablet 09/02/20 11/17/21 Zolpidem [Ambien] 5 mg PO QPM PRN 09/02/20 11/17/21 Loratadine/Pseudoephedrine 1 tab PO DAILY PRN #14 tab 11/10/21 11/17/21 [Allerclear D-24Hr ER Tablet] predniSONE [Deltasone] 10 mg PO [id number] #42 tab 11/10/21 11/17/21 Albuterol Sulf [Ventolin Hfa 1 - 2 puffs INH Q4HR PRN 11/17/21 11/17/21 Inhaler] Fluticasone 110 Mcg [Flovent] 1 puffs IH DAILY 11/17/21 11/17/21 Gabapentin [Neurontin] 300 mg PO TID #30 cap 11/17/21 HYDROcod/ACETAM 5/325 [Barlow 5/325] 1 - 2 ea PO Q6H PRN #14 tablet 11/17/21 methylPREDNISolone [Medrol] 4 mg PO DAILY #1 tab 12/11/21 - Allergies Allergies/Adverse Reactions: Allergies Allergy/AdvReac Type Severity Reaction Status Date / Time aspirin Allergy Severe Anaphylaxis Verified 12/11/21 10:50 bee venom protein (honey bee) Allergy Severe Anaphylaxis Verified 12/11/21 10:50 NSAIDS (Non-Steroidal Allergy Severe Anaphylaxis Verified 12/11/21 10:50 Anti-Inflamma varenicline tartrate * Allergy Severe Blisters Verified 12/11/21 10:50 [From Chantix] metoprolol Allergy Intermediate Hives Verified 12/11/21 10:50 - Social History Does the pt smoke?: Yes Smoking Status: Current every day smoker Does the pt drink ETOH?: No Does the pt have substance abuse?: No - Immunizations Immunizations are current?: Yes Immunizations: TDAP current <10years - POLST Patient has POLST: No PD ED PE NORMAL - General General: Alert and oriented X 3 - HEENT HEENT: Atraumatic, Other (Boggy erythematous naris bilaterally. Visible nasal polyp in the right nare. The remainder of the HEENT exam is benign.) - Neck Neck: Supple, no meningeal sign Results - Vitals Vitals: Vital Signs - 24 hr 12/11/21 10:50 Temperature 36.7 C Heart Rate 95 Respiratory 17 Rate Blood Pressure 190/75 H O2 Saturation 99 Oxygen O2 Source Room air PD MEDICAL DECISION MAKING - ED course Complexity details: d/w patient ED course: Patient 41-year-old female presenting to the emergency department with worsening seasonal allergies. Afebrile, hemodynamic stable on arrival to the emergency department. Upper airway congestion with boggy naris bilaterally and nasal polyps appreciated in the right nare. Patient reports in the past has required Medrol Dosepak to help with her symptoms. Was given dose prednisone here in the emergency department. Encouraged to continue to use both oral and nasal decongestants as well as Flonase. Will discharge with prescription for Medrol Dosepak. Encourage careful follow-up with primary care. Otherwise clear return precautions and follow-up instructions given prior to discharge. Departure - Departure Disposition: 01 Home, Self Care Clinical Impression: Nasal polyps, Allergy Prescriptions: methylPREDNISolone [Medrol] 4 mg PO DAILY #1 tab Comments: Thank you for allowing us to care for you today at [facility]. Have sent a prescription for a tapered course of prednisone to your preferred pharmacy, [email or web address]. Please take this as prescribed. Please follow-up with your primary care doctor soon as possible. If anytime you develop any new or worsening symptoms please not hesitate to return.
[2021-12-11] MEDS ORDERED: predniSONE 20 MG TABLET PO STA (11:39)
== END 2021-12-11 11:45 | disposition home or self-care (01) ==
LOC: ED 10:42
DX: J30.2 Other seasonal allergic rhinitis (principal); F17.200 Nicotine dependence, unspecified, uncomplicated
CPT/HCPCS: 99282; J7512

== ENCOUNTER 2022-02-03 10:09 | Emergency (ER) | payer MEDICAID ==
[2022-02-03] MEDS ORDERED: IPRATROPIUM/ALBUTEROL 3 ML NEB INH STA (10:22)
[2022-02-03] MEDS ORDERED: LORazepam 2 MG/ML VIAL IVP STA (10:28)
[2022-02-03] MEDS ORDERED: DEXAMETHASONE 10 MG/ML VIAL IV STA (10:28)
--- NOTE | 2022-02-03 12:11 | ED Physician Documentation ---
PD HPI DYSPNEA - Stated complaint Stated Complaint: SOA/COUGH - Chief complaint Chief Complaint: Resp - History obtained from History obtained from: Patient - Additional information Additional information: Patient comes the emergency department chief complaint of shortness of breath. She states that she felt as though her asthma was acting up and then began having a panic attack. She tried taking an albuterol inhaler but states that it did not work fast enough. Patient is a smoker. No other complaints at this time. She has not been ill with anything recently. Review of Systems Ten Systems: 10 systems reviewed and negative Constitutional: reports: Reviewed and negative Eyes: reports: Reviewed and negative Ears: reports: Reviewed and negative Nose: reports: Reviewed and negative Throat: reports: Reviewed and negative Cardiac: reports: Reviewed and negative Respiratory: reports: Dyspnea, Cough, Wheezing GI: reports: Reviewed and negative : reports: Reviewed and negative Skin: reports: Reviewed and negative Musculoskeletal: reports: Reviewed and negative Neurologic: reports: Reviewed and negative Psychiatric: reports: Reviewed and negative Endocrine: reports: Reviewed and negative Immunocompromised: reports: Reviewed and negative PD PAST MEDICAL HISTORY - Past Medical History Cardiovascular: None Respiratory: Asthma Neuro: Migraines Endocrine/Autoimmune: None GI: GERD, Ulcers 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 : None HEENT: None, Other Psych: None Musculoskeletal: None Derm: None - Past Surgical History Past Surgical History: Yes /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: Tubal ligation, Other HEENT: Other - Present Medications Home Medications: Ambulatory Orders Medication Instructions Recorded Confirmed Sertraline [Zoloft] 50 mg PO DAILY 04/26/20 11/17/21 Amitriptyline [Elavil] 25 mg PO QPM 09/02/20 11/17/21 Montelukast [Singulair] 10 mg PO QPM 30 Days #30 tablet 09/02/20 11/17/21 Zolpidem [Ambien] 5 mg PO QPM PRN 09/02/20 11/17/21 Loratadine/Pseudoephedrine 1 tab PO DAILY PRN #14 tab 11/10/21 11/17/21 [Allerclear D-24Hr ER Tablet] predniSONE [Deltasone] 10 mg PO [id number] #42 tab 11/10/21 11/17/21 Albuterol Sulf [Ventolin Hfa 1 - 2 puffs INH Q4HR PRN 11/17/21 11/17/21 Inhaler] Fluticasone 110 Mcg [Flovent] 1 puffs IH DAILY 11/17/21 11/17/21 Gabapentin [Neurontin] 300 mg PO TID #30 cap 11/17/21 HYDROcod/ACETAM 5/325 [[place] 5/325] 1 - 2 ea PO Q6H PRN #14 tablet 11/17/21 methylPREDNISolone [Medrol] 4 mg PO DAILY #1 tab 12/11/21 Cetirizine HCl/Pseudoephedrine 1 each PO BID PRN #30 ea 01/06/22 [Zyrtec-D Tablet] HYDROcod/ACETAM 5/325 [[place] 5/325] 1 - 2 ea PO Q6H PRN #14 tablet 01/06/22 predniSONE [Deltasone] 10 mg PO [id number] #42 tab 01/06/22 predniSONE [Deltasone] 60 mg PO DAILY 5 Days #15 tablet 02/03/22 Albuterol 2.5 mg INH Q4H PRN #30 ml 02/10/22 Amox/Clav 875/125 [Augmentin] 1 each PO Q12H #20 tablet 02/10/22 guaiFENesin/CODEINE [Robitussin AC] 5 - 10 ml PO Q6H PRN #120 ml 02/10/22 predniSONE [Deltasone] 20 mg PO [id number] #21 tab 02/10/22 - Allergies Allergies/Adverse Reactions: Allergies Allergy/AdvReac Type Severity Reaction Status Date / Time aspirin Allergy Severe Anaphylaxis Verified 02/10/22 16:38 bee venom protein (honey bee) Allergy Severe Anaphylaxis Verified 02/10/22 16:38 NSAIDS (Non-Steroidal Allergy Severe Anaphylaxis Verified 02/10/22 16:38 Anti-Inflamma varenicline tartrate * Allergy Severe Blisters Verified 02/10/22 16:38 [From Chantix] metoprolol Allergy Intermediate Hives Verified 02/10/22 16:38 - Social History Does the pt smoke?: Yes Smoking Status: Current every day smoker Does the pt drink ETOH?: No Does the pt have substance abuse?: No - Immunizations Immunizations are current?: Yes Immunizations: TDAP current <10years - POLST Patient has POLST: No PD ED PE NORMAL - Vitals Vital signs reviewed: Yes - General General: Well developed/nourished, Other (Alert and in moderate distress, appearing extremely anxious, and crying out loudly while she breathes.) - HEENT HEENT: Atraumatic, PERRL, EOMI, Moist mucous membranes - Neck Neck: Supple, no meningeal sign - Cardiac Cardiac: RRR, No murmur - Respiratory Respiratory: Other (Moderate wheezing. The patient is extremely anxious but when distracted and calmed, her respirations are only mildly labored.) - Abdomen Abdomen: Soft, Non tender, Non distended - Derm Derm: Normal color, Warm and dry, No rash - Extremities Extremities: No deformity, No edema - Neuro Neuro: Other (Grossly oriented, grossly intact) - Psych Psych: Other (Tearful, very anxious) Results - Vitals Vitals: Oxygen O2 Source Room air - Labs Labs: Laboratory Tests 02/03/22 10:59 SARS-CoV-2 (PCR) NOT DETECTED PD MEDICAL DECISION MAKING - ED course Complexity details: considered differential, d/w patient ED course: I was called to the patient's room upon her arrival in the emergency department to evaluate her, due to her extreme anxiety in the setting of a history of ast hma. The patient's oxygen saturation was actually fairly good and I found her air movement to be reasonable. With some gentle speech and reassurance, I was able to calm the patient to the point where she was actually able to take good breaths in and out. She was treated with steroids and a DuoNeb after which she did experience some improvement, but continued to feel short of breath and actually, continues to be significantly wheezy. The patient was also given Ativan which did help calm her down. An albuterol nebulizer treatment was administered after which the patient felt markedly better. We have discussed treatment of the symptoms at home, as well as the usual indications for follow- up and return. Departure - Departure Disposition: 01 Home, Self Care Clinical Impression: Panic attack Asthma exacerbation Qualifiers: Asthma severity: mild Asthma persistence: unspecified Qualified Code(s): J45.901 - Unspecified asthma with (acute) exacerbation Condition: Stable Instructions: ED Reactive Airway Disease, ED Panic Attack Prescriptions: predniSONE [Deltasone] 60 mg PO DAILY 5 Days #15 tablet Comments: You should continue to take your albuterol inhalers, as prescribed. A prescription for an oral steroid has been electronically transmitted to [facility] pharmacy in [place], your preferred pharmacy on record. Discharge Date/Time: 02/03/22 13:27
--- NOTE | 2022-02-03 12:11 | XRAY Report ---
PROCEDURE: Chest 1 View X-Ray INDICATIONS: short of air TECHNIQUE: One view of the chest was acquired. COMPARISON: 07/26/2021 FINDINGS: Surgical changes and devices: None. Lungs and pleura: No pleural effusions or pneumothorax. Lungs are clear. Mediastinum: Mediastinal contours appear normal. Heart size is normal. Bones and chest wall: No suspicious bony lesions. Overlying soft tissues appear unremarkable. IMPRESSION: No acute cardiopulmonary findings Reviewed by: Fran Siddiqi MD on 02/03/2022 11:09 AM CONSTANTIN Approved by: Fran Siddiqi MD on 02/03/2022 11:09 AM CONSTANTIN Station ID: [id number]
[2022-02-03] MEDS ORDERED: ALBUTEROL NEB 2.5 MG/3 ML INH STA (12:15)
[2022-02-03 13:20] VITALS: BP 127/77
== END 2022-02-03 13:27 | disposition home or self-care (01) ==
LOC: ED 10:09
DX: F41.0 Panic disorder [episodic paroxysmal anxiety] (principal); J45.901 Unspecified asthma with (acute) exacerbation; F17.200 Nicotine dependence, unspecified, uncomplicated; Z20.822 Contact with and (suspected) exposure to COVID-19
CPT/HCPCS: 71045; 87635; 94640; 96374; 99283; 99284; J2060

== ENCOUNTER 2022-02-10 16:30 | Emergency (ER) | payer MEDICAID ==
--- NOTE | 2022-02-10 16:48 | ED Physician Documentation ---
PD HPI HEENT - Stated complaint Stated Complaint: CHEST PX,SOA - Chief complaint Chief Complaint: Resp - History obtained from History obtained from: Patient - Additional information Additional information: 41-year-old woman with history of asthma and tobacco abuse has been sick for about 10 days with dry cough especially at night and worse with supine position associated with shortness of breath, wheezing, nasal congestion and bilateral ear pain, left worse than right. She was seen here by my partner, Dr. Noonan week ago and tested negative for COVID. She was on a few days worth of steroids. Subsequently she saw her primary care physician who started doxycycline 6 days ago but she has had no improvement. Review of Systems Constitutional: reports: Fatigue. denies: Fever, Chills, Myalgias Nose: reports: Rhinorrhea / runny nose, Congestion. 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, Other HEENT: Other - Present Medications Home Medications: Ambulatory Orders Medication Instructions Recorded Confirmed Sertraline [Zoloft] 50 mg PO DAILY 04/26/20 11/17/21 Amitriptyline [Elavil] 25 mg PO QPM 09/02/20 11/17/21 Montelukast [Singulair] 10 mg PO QPM 30 Days #30 tablet 09/02/20 11/17/21 Zolpidem [Ambien] 5 mg PO QPM PRN 09/02/20 11/17/21 Loratadine/Pseudoephedrine 1 tab PO DAILY PRN #14 tab 11/10/21 11/17/21 [Allerclear D-24Hr ER Tablet] predniSONE [Deltasone] 10 mg PO [id number] #42 tab 11/10/21 11/17/21 Albuterol Sulf [Ventolin Hfa 1 - 2 puffs INH Q4HR PRN 11/17/21 11/17/21 Inhaler] Fluticasone 110 Mcg [Flovent] 1 puffs IH DAILY 11/17/21 11/17/21 Gabapentin [Neurontin] 300 mg PO TID #30 cap 11/17/21 HYDROcod/ACETAM 5/325 [[place] 5/325] 1 - 2 ea PO Q6H PRN #14 tablet 11/17/21 methylPREDNISolone [Medrol] 4 mg PO DAILY #1 tab 12/11/21 Cetirizine HCl/Pseudoephedrine 1 each PO BID PRN #30 ea 01/06/22 [Zyrtec-D Tablet] HYDROcod/ACETAM 5/325 [[place] 5/325] 1 - 2 ea PO Q6H PRN #14 tablet 01/06/22 predniSONE [Deltasone] 10 mg PO [id number] #42 tab 01/06/22 predniSONE [Deltasone] 60 mg PO DAILY 5 Days #15 tablet 02/03/22 Albuterol 2.5 mg INH Q4H PRN #30 ml 02/10/22 Amox/Clav 875/125 [Augmentin] 1 each PO Q12H #20 tablet 02/10/22 guaiFENesin/CODEINE [Robitussin AC] 5 - 10 ml PO Q6H PRN #120 ml 02/10/22 predniSONE [Deltasone] 20 mg PO [id number] #21 tab 02/10/22 - Allergies Allergies/Adverse Reactions: Allergies Allergy/AdvReac Type Severity Reaction Status Date / Time aspirin Allergy Severe Anaphylaxis Verified 02/10/22 16:38 bee venom protein (honey bee) Allergy Severe Anaphylaxis Verified 02/10/22 16:38 NSAIDS (Non-Steroidal Allergy Severe Anaphylaxis Verified 02/10/22 16:38 Anti-Inflamma varenicline tartrate * Allergy Severe Blisters Verified 02/10/22 16:38 [From Chantix] metoprolol Allergy Intermediate Hives Verified 02/10/22 16:38 - Social History Does the pt smoke?: Yes Smoking Status: Current every day smoker Does the pt drink ETOH?: No Does the pt have substance abuse?: No - Immunizations Immunizations are current?: Yes Immunizations: TDAP current <10years - POLST Patient has POLST: No PD ED PE NORMAL - Vitals Vital signs reviewed: Yes - General General: Alert and oriented X 3, No acute distress, Other (Frequent bronchitic coughing And mild laryngitis) - HEENT HEENT: Pharynx benign, Other (Bilateral serous otitis media) - Neck Neck: Supple, no meningeal sign, No bony TTP - Cardiac Cardiac: RRR, No murmur - Respiratory Respiratory: Other (Rhonchorous and wheezy throughout) - Abdomen Abdomen: Non tender - Back Back: No spinal TTP - Derm Derm: Normal color, Warm and dry - Neuro Neuro: Alert and oriented X 3, Normal speech - Psych Psych: Normal mood, Normal affect Results - Vitals Vitals: Vital Signs - 24 hr 02/10/22 16:34 Temperature 37.1 C Heart Rate 92 Respiratory 30 H Rate Blood Pressure 148/118 H O2 Saturation 98 Oxygen O2 Source Room air PD MEDICAL DECISION MAKING - ED course ED course: She declined a breathing treatment here as she has a nebulizer at home. Departure - Departure Disposition: Home, Self Care Clinical Impression: Bronchitis Condition: Good Record reviewed to determine appropriate education?: Yes Instructions: ED Bronchitis Asthmatic Prescriptions: Albuterol 2.5 mg INH Q4H PRN #30 ml PRN Reason: Wheezing Amox/Clav 875/125 [Augmentin] 1 each PO Q12H #20 tablet predniSONE [Deltasone] 20 mg PO [id number] #21 tab guaiFENesin/CODEINE [Robitussin AC] 5 - 10 ml PO Q6H PRN #120 ml PRN Reason: Cough Comments: I sent your prescriptions to [facility] in [place]. You were seen today for findings consistent with bronchitis. We are starting a longer steroid taper, I am also prescribing some codeine for the cough. Do not drink or drive with that. You can stop the doxycycline that you were previously on. Since you already have not been smoking for a couple of weeks because you are too sick, it is an ideal time to completely quit.
[2022-02-10 17:00] VITALS: BP 121/64
== END 2022-02-10 17:02 | disposition home or self-care (01) ==
LOC: ED 16:30
DX: J40 Bronchitis, not specified as acute or chronic (principal); Z72.0 Tobacco use
CPT/HCPCS: 99282; 99284

== ENCOUNTER 2022-06-25 09:12 | Emergency (ER) | payer MEDICAID ==
[2022-06-25] MEDS ORDERED: HYDROcod/ACETAM 5/325 MG TABLET PO STA (09:45)
[2022-06-25] MEDS ORDERED: LIDOCAINE PATCH 5% TOP STA (09:46)
[2022-06-25] MEDS ORDERED: predniSONE 20 MG TABLET PO STA (09:46)
--- NOTE | 2022-06-25 11:32 | ED Physician Documentation ---
PD HPI BACK PAIN - Stated complaint Stated Complaint: SCIATICA - Chief complaint Chief Complaint: Back Pain - History obtained from History obtained from: Patient - Additional information Additional information: Patient is a 41-year-old presenting for evaluation of low back pain that has been radiating down her left leg for the last 4 weeks. 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 Over the course of the last week she has been doing more lifting. She has been seen by her primary care doctor who started her on tramadol and a mus fan relaxer without any improvement. She reports having occasional numbness and tingling into her left leg. Last night she got up to go to the bathroom and was not able to make it in time to get to the bathroom but denies having other episodes of urinary incontinence here today. She denies saddle anesthesia. She denies bowel incontinence. She denies trauma, use of a blood thinner, IV drug use.She does have a history of sciatica in the past and reports this feels similar. 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, Other HEENT: Other - Present Medications Home Medications: Ambulatory Orders Medication Instructions Recorded Confirmed Sertraline [Zoloft] 50 mg PO DAILY 04/26/20 05/01/22 Amitriptyline [Elavil] 25 mg PO QPM 09/02/20 05/01/22 Montelukast [Singulair] 10 mg PO QPM 30 Days #30 tablet 09/02/20 05/01/22 Albuterol Sulf [Ventolin Hfa 1 - 2 puffs INH Q4HR PRN 11/17/21 05/01/22 Inhaler] Fluticasone 110 Mcg [Flovent] 1 puffs IH DAILY 11/17/21 05/01/22 Gabapentin [Neurontin] 300 mg PO TID #30 cap 11/17/21 05/01/22 Cetirizine [ZyrTEC] 10 mg PO DAILY 05/01/22 05/01/22 amLODIPine [Norvasc] 5 mg PO DAILY 05/01/22 05/01/22 hydroCHLOROthiazide [Hydrodiuril] 12.5 mg PO DAILY 05/01/22 05/01/22 HYDROcod/ACETAM 5/325 [[place] 5/325] 1 tablet PO Q6H PRN #14 tablet 06/25/22 predniSONE [Deltasone] 20 mg PO [id number] #21 tab 06/25/22 - Allergies Allergies/Adverse Reactions: Allergies Allergy/AdvReac Type Severity Reaction Status Date / Time aspirin Allergy Severe Anaphylaxis Verified 06/25/22 09:26 bee venom protein (honey bee) Allergy Severe Anaphylaxis Verified 06/25/22 09:26 NSAIDS (Non-Steroidal Allergy Severe Anaphylaxis Verified 06/25/22 09:26 Anti-Inflamma varenicline tartrate * Allergy Severe Blisters Verified 06/25/22 09:26 [From Chantix] metoprolol Allergy Intermediate Hives Verified 06/25/22 09:26 - Social History Does the pt smoke?: Yes Smoking Status: Current every day smoker Does the pt drink ETOH?: No Does the pt have substance abuse?: No - Immunizations Immunizations are current?: Yes Immunizations: TDAP current <10years - POLST Patient has POLST: No PD ED PE NORMAL - General General: Alert and oriented X 3, No acute distress, Well developed/nourished - HEENT HEENT: Atraumatic - Neck Neck: Supple, no meningeal sign - Cardiac Cardiac: RRR, Strong equal pulses - Respiratory Respiratory: No respiratory distress, Clear bilaterally - Abdomen Abdomen: Soft, Non tender, Non distended - Derm Derm: Warm and dry - Extremities Extremities: No deformity, Other (Normal ankle jerk reflex b/l; normal great toe extension b/l; sensation grossly intact) - Neuro Neuro: Alert and oriented X 3, No motor deficit, Normal speech Results - Vitals Vitals: Vital Signs - 24 hr 06/25/22 06/25/22 09:21 11:40 Temperature 36.7 C 36.5 C Heart Rate 100 91 Respiratory 20 16 Rate Blood Pressure 170/132 H 151/95 H O2 Saturation 95 98 Oxygen O2 Source Room air PD Medical Decision Making - ED course ED course: Patient evaluated for low back pain with radiation to the left leg. She has no focal deficits. She has no red flag signs or symptoms in regards to her back pain. No features on exam or history to suggest epidural abscess or hematoma Or cord compression.She has been up ambulating to the restroom here. Discussed imaging and do not think a x-ray or CT would be particularly helpful at this time. Patient may need an MRI but does not require an emergent 1 at this time. She is feeling better with p.o. pain medication and prednisone. She has a follow-up appointment with her PCP on Friday. Pt comfortable with plan for discharge and advised on concerning symptoms to return for. Departure - Departure Disposition: Home, Self Care Clinical Impression: Sciatica Condition: Stable Instructions: ED Sciatica Prescriptions: predniSONE [Deltasone] 20 mg PO [id number] #21 tab HYDROcod/ACETAM 5/325 [[place] 5/325] 1 tablet PO Q6H PRN #14 tablet PRN Reason: Pain Comments: Your symptoms suggest sciatica Which is irritation of one of the nerves from your lower back. I have started you on steroids and also prescribed a short amount of narcotic pain medications to help with this. Please have close follow-up with your primary care doctor. If you have any worsening symptoms please return to the emergency department.I have sent your prescriptions to [facility] in [place]. I am prescribing a short course of narcotic pain medication for you. These are potentially dangerous and addictive medications that should be used carefully. These medications may constipate you. Take an [id number] stool softener (docusate) twice daily with plenty of water while taking these medications. If you go 24 hours without a bowel movement, take [id number] miralax, per package instructions. Do not drink or drive while taking these medications. If you received narcotic or sedating medications while in the emergency department, do not drive for 24 hours. Store this medication in a safe, secure place and out of reach of children. It is a violation of federal law to give or sell this medication to another person or to use in a manner other than prescribed. The ED will not refill narcotic prescriptions, including prescriptions lost or stolen. To dispose of unwanted medications: 1. [facility] at [address] in [place] has a medication drop box. They accept prescription medications (in pill form) Friday through Friday 9:00 a.m. to 5:00 p.m. 2. The [facility] [employer] accepts prescription medications (in pill form only) for disposal year round. Call for more information. 3. Contact the [facility] for the next [facility] sponsored prescription drug collection event. , [phone], or [phone]; Note that many narcotic pain relievers also contain Tylenol/acetaminophen. Please ensure that your total dose of acetaminophen from all sources does not exceed 3 g (3000 mg) per day. Discharge Date/Time: 06/25/22 11:42
[2022-06-25 11:42] VITALS: BP 151/95
== END 2022-06-25 11:42 | disposition home or self-care (01) ==
LOC: ED 09:12
DX: M54.30 Sciatica, unspecified side (principal); F17.200 Nicotine dependence, unspecified, uncomplicated
CPT/HCPCS: 99282; 99283; A9270; J7512

== ENCOUNTER 2024-09-22 22:00 | Inpatient (IN) ==
--- NOTE | 2024-09-22 22:27 | ED Physician Documentation ---
History of Present Illness Stated complaint Stated Complaint: ABD PX Chief complaint Chief Complaint: Abd Pain History obtained from History obtained from: Patient Additonal information Additional information: 43-year-old woman with past medical history of diverticulitis presents for a fourth encounter in the past few weeks after multiple rounds of oral antibiotics (augmentin then levoquine/flagyl) with persistent pain. ct a/p performed yesterday showed persistent flare and Dr. stratton our surgeon relocation specialist recommended admission but patient had to go home for logistical reasons. she now presents for admission. +N, + abd pain Meds/Allgy Home Medications Ambulatory Orders Medication Instructions Recorded Confirmed albuterol sulfate 90 mcg/actuation 1 - 2 puff inhalati on Q4HR PRN 11/17/21 09/21/24 aerosol inhaler (Ventolin HFA) Shortness Of Air/Wheezi ng dupilumab 300 mg/2 mL subcutaneous 300 mg subcut Q14D 07/06/24 09/21/24 pen injector (Dupixent) lisinopril 10 mg tablet 10 mg PO BID 07/06/24 trazodone 50 mg tablet 100 mg PO HS 07/06/24 levofloxacin 500 mg tablet 500 mg PO DAILY #10 tabs 09/21/24 metronidazole 500 mg tablet 500 mg PO BID 10 days #20 tabs 09/12/24 09/21/24 pregabalin 100 mg capsule 100 mg PO BID 09/21/2409/21 Allergies Allergies Allergy/AdvReac Type Severity Reaction Status Date / Time aspirin Allergy Severe Anaphylaxis Verified 09/22/24 22:10 bee venom protein (honey bee) Allergy Severe Anaphylaxis Verified 09/22/24 22:10 NSAIDS (Non-Steroidal Allergy Severe Anaphylaxis Verified 09/22/24 22:10 Anti-Inflamma varenicline tartrate * (From Allergy Severe Blisters Verified 09/22/24 22:10 Chantix) metoprolol Allergy Intermediate Hives Verified 09/22/24 22:10 [facility] Active Problems All Active Problems (Updated 09/22/24 @ 22:32 by Abbey Avelar MD) Diverticulitis (Acute) Diverticulitis large intestine (Acute) Abdominal pain (Acute) Diverticulitis (Acute) Bronchitis (Acute) Vision loss (Acute) Constipation (Acute) Cough (Acute) Urinary tract infection (Acute) PVC (premature ventricular contraction) (Acute) Atypical chest pain (Acute) Acute asthma exacerbation (Acute) Strep pharyngitis (Acute) Nasal polyps (Acute) Abdominal pain (Acute) Asthma exacerbation (Acute) Otitis media (Acute) Asthma (Acute) Allergic reaction (Acute) Chest wall pain (Acute) Nasal polyposis (Acute) Cellulitis of left ankle (Acute) Cellulitis of right leg (Acute) Strep pharyngitis (Acute) Sty, internal (Acute) Pharyngitis (Acute) Upper respiratory infection (Acute) Medical History Medical History (Updated 09/22/24 @ 22:32 by Abbey Avelar MD) Chronic back pain Seasonal allergies Asthma HTN (hypertension) Surgical History Surgical History (Updated 09/21/24 @ 12:54 by Sonido Corrales RN) Hx of tubal ligation Hx of sinus surgery Social History Social History (Updated 09/21/24 @ 12:54 by Sonido Corrales RN) Smoking Status: Current every day smoker Number of Years Smoked: 30 How many cigarettes a day do you smoke? (20 cigarettes=1 Pk): 20 Do you dip or chew tobacco?: No Do you vape?: No Patient requests smoking cessation consult: No Initiate information on smoking cessation: No Living arrangement: At home Living Condition: With family Relationship: Level: Independent Do you feel safe in your home environment?: Yes Suffered physical, verbal, emotional, or financial abuse?: No History of Abuse: No ETOH Use: None Substance Use: cannabis (any form) Are you sexually active?: No POLST Patient has POLST: No Exam Exam Vital Signs: Vital Signs x48h Temp Pulse Resp BP Pulse Ox 09/22/24 22:00 36.6 C 83 18 116/97 H 95 Constitutional normal general appearance uncomfortable appearing HENMT normocephalic and head/scalp atraumatic Eyes PERRL and EOMs intact bilaterally Neck/C-Spine visual inspection normal Respiratory breath sounds equal bilaterally, normal respiratory effort and clear to auscultation bilaterally Cardiovascular normal heart rate noted and regular rhythm noted Gastrointestinal ttp LLQ Results Vitals Vitals: Vital Signs - 24 hr 09/22/24 22:00 Temperature 36.6 C Temperature Source Temporal Artery Scan Pulse Rate 83 Respiratory Rate 18 Blood Pressure 116/97 H O2 Saturation 95 O2 Source Room air Pain Intensity 6 Oxygen O2 Source Room air PD Medical Decision Making ED course ED course: 43yF p/w diverticulitis flare refractory to outpatient oral antibiotics. plan to admit for IV antibiotics Discharge Plan Discharge Patient Disposition: [facility] DC/Xfer Condition: Fair Clinical Impression: Diverticulitis Prescriptions: No Action albuterol sulfate [Ventolin HFA] 200 PUFFS/18 GM HFA aerosol inhaler 1 - 2 puff inhalation Q4HR PRN (Reason: Shortness Of Air/Wheezing) trazodone 50 mg tablet 100 mg PO HS Patient Comments: TAKE 2 TABLETS BY MOUTH ONCE DAILY Dupixent Pen 300 mg/2 mL pen injector 300 mg SUBCUT Q14D lisinopril 10 mg tablet 10 mg PO BID levofloxacin 500 mg tablet 500 mg PO DAILY Qty: 10 0RF metronidazole 500 mg tablet 500 mg PO BID 10 Days Qty: 20 0RF pregabalin 100 mg capsule 100 mg PO BID Patient Comments: TAKE 1 CAPSULE BY MOUTH TWICE DAILY Print Language: Azeri
[2024-09-22] MEDS: SODIUM CHLORIDE 0.9% 500 ML IV ONE (22:30)
--- OUTSIDE RECORDS SUMMARY | 2024-09-22 22:30 | EXTERNAL MEDICAL SUMMARY RPT | Continuity of Care Document ---
Author Organization [facility] Address [address] [place] [id number] Phone Problems date description facility 2024-07-06 17:03 Bronchitis, not specified as ac [place] or chronic [facility] 2024-07-08 11:30 Bronchitis, not specified as ac [place] or chronic [facility] 2024-07-08 11:30 Cough, unspecified [facility] 2024-07-08 11:30 Shortness of breath [facility] 2024-07-08 11:30 Other forms of dyspnea [facility] 2024-09-05 16:38 Diverticulitis of in testine, part unspecified, without perforation or abscess without bleeding [facility] 2024-09-05 16:38 Unspecified abdominal pain [facility] 2024-09-05 17:18 Diverticulitis of in testine, part unspecified, without perforation or abscess without bleeding [facility] 2024-09-05 17:18 Unspecified abdominal pain [facility] 2024-09-09 11:47 Diverticulitis of in testine, part unspecified, without perforation or abscess without bleeding [facility] 2024-09-09 11:47 Left lower quadrant pain [facility] 2024-09-09 11:47 Unspecified abdominal pain [facility] 2024-09-09 11:47 Diarrhea, unspecified [facility] 2024-09-12 16:46 Diverticulitis of in testine, part unspecified, without perforation or abscess without bleeding [facility] 2024-09-17 12:31 Left lower quadrant pain [facility] Results/Labs test date facility value unit notes Result panel 1 INFLUENZA A H1 2009- RESP PCR [facility]24[facility]07-06 [facility]) Influenza A H1-2009 detected by the adQuota RP2.1 Panel, a multiplexed nucleic acid test intended for the simultaneous qualitative detection and differentiation of nucleic acids from multiple viral and bacterial respiratory organisms. SARS-CoV-2 -RESP PCR PANEL 2024-07-06 16:08 [facility] NOT DETECTED (missing) A negative test result for this test indicates that SARS-CoV-2 RNA was not present in the specimen above the limit of detection. Testing performed on the adQuota RP2.1 Panel, a multiplexed nucleic acid repiratory panel. Negative results do not preclude infection with SARS-CoV-2 virus and should not be the sole basis of a patient management decision. In some patients repeat testing at various time points may be necessary for virus detection. False-negative results may arise from improper sample collection, degradation of viral RNA during shipping or storage, the presence of PCR inhibitors, and/or mutation in the SARS-CoV-2 virus. B. PARAPERTUSSIS- RESP PCR WIGGINS 2024-07-06 16:08 [facility] NOT DETECTED (missing) Negative results for this organism do not preclude infection with this organism and may require additional laboratory testing (e.g., bacterial and viral culture, immunofluorescence, and radiography) when evaluating a patient with possible respiratory tract infection. B. PERTUSSIS- RESP PCR PANEL 2024-07-06 16:08 [facility] NOT DETECTED (missing) Negative results for this organism do not preclude infection with this organism and may require additional laboratory testing (e.g., bacterial and viral culture, immunofluorescence, and radiography) when evaluating a patient with possible respiratory tract infection. C. PNEUMONIAE- RESP PCR PANEL 2024-07-06 16:08 [facility] NOT DETECTED (missing) Negative results for this organism do not preclude infection with this organism and may require additional laboratory testing (e.g., bacterial and viral culture, immunofluorescence, and radiography) when evaluating a patient with possible respiratory tract infection. M. PNEUMONIAE- RESP PCR PANEL 2024-07-06 16:08 [facility] NOT DETECTED (missing) Negative results for this organism do not preclude infection with this organism and may require additional laboratory testing (e.g., bacterial and viral culture, immunofluorescence, and radiography) when evaluating a patient with possible respiratory tract infection. CORONAVIRUS 229E-RESP PCR 2024-07-06 16:08 [facility] NOT DETECTED (missing) Negative results in the setting ofa respiratory illness may be due to infection with pathogens not detected by this test, or lower respiratory tract infection that may not be detected by nasopharyngeal specimen. CORONAVIRUS HKU1-RESP PCR 2024-07-06 16:08 [facility] NOT DETECTED (missing) Negative results in the setting ofa respiratory illness may be due to infection with pathogens not detected by this test, or lower respiratory tract infection that may not be detected by nasopharyngeal specimen. CORONAVIRUS [id number] PCR 2024-07-06 16:08 [facility] NOT DETECTED (missing) Negative results in the setting ofa respiratory illness may be due to infection with pathogens not detected by this test, or lower respiratory tract infection that may not be detected by nasopharyngeal specimen. CORONAVIRUS [id number] PCR 2024-07-06 16:08 [facility] NOT DETECTED (missing) Negative results in the setting ofa respiratory illness may be due to infection with pathogens not detected by this test, or lower respiratory tract infection that may not be detected by nasopharyngeal specimen. HUMAN METAPNEUMOVIRUS 2024-07-06 16:08 [facility] NOT DETECTED (missing) Negative results in the setting ofa respiratory illness may be due to infection with pathogens not detected by this test, or lower respiratory tract infection that may not be detected by nasopharyngeal specimen. INFLUENZA B - RESP PCR PANEL 2024-07-06 16:08 [facility] NOT DETECTED (missing) Negative results in the setting ofa respiratory illness may be due to infection with pathogens not detected by this test, or lower respiratory tract infection that may not be detected by nasopharyngeal specimen. PARAINFLUENZA VIRUS 1 2024-07-06 16:08 [facility] NOT DETECTED (missing) Negative results in the setting ofa respiratory illness may be due to infection with pathogens not detected by this test, or lower respiratory tract infection that may not be detected by nasopharyngeal specimen. PARAINFLUENZA VIRUS 2 2024-07-06 16:08 [facility] NOT DETECTED (missing) Negative results in the setting ofa respiratory illness may be due to infection with pathogens not detected by this test, or lower respiratory tract infection that may not be detected by nasopharyngeal specimen. PARAINFLUENZA VIRUS 3 2024-07-06 16:08 [facility] NOT DETECTED (missing) Negative results in the setting ofa respiratory illness may be due to infection with pathogens not detected by this test, or lower respiratory tract infection that may not be detected by nasopharyngeal specimen. PARAINFLUENZA VIRUS 4 2024-07-06 16:08 [facility] NOT DETECTED (missing) Negative results in the setting ofa respiratory illness may be due to infection with pathogens not detected by this test, or lower respiratory tract infection that may not be detected by nasopharyngeal specimen. RHINOVIRUS/ENTEROVI CADEN 2024-07-06 16:08 [facility] NOT DETECTED (missing) Negative results in the setting ofa respiratory illness may be due to infection with pathogens not detected by this test, or lower respiratory tract infection that may not be detected by nasopharyngeal specimen. RSV- RESP PCR PANEL 2024-07-06 16:08 [facility] NOT DETECTED (missing) Negative results in the setting ofa respiratory illness may be due to infection with pathogens not detected by this test, or lower respiratory tract infection that may not be detected by nasopharyngeal specimen. ADENOVIRUS - RESP PCR PANEL 2024-07-06 16:08 [facility] NOT DETECTED (missing) Y Negative results in the setting ofa respiratory illness may be due to infection with pathogens not detected by this test, or lower respiratory tract infection that may not be detected by nasopharyngeal specimen. Result panel 2 SPECIFIC GRAVITY,URINE 2024-09-05 14:10 [facility] >=1.030 (missing) (missing) UROBILINOGEN,URINE 2024-09-05 14:10 [facility] 0.2 (NORMAL) e.u./dl (missing) PH,URINE 2024-09-05 14:10 [facility] 5.5 ph (missing) CLARITY,URINE 2024-09-05 14:10 [facility] CLEAR (missing) (missing) COLOR,URINE 2024-09-05 14:10 [facility] DARK YELLOW (missing) URINE CLEAN CATCH LEUKOCYTE ESTERASE, URINE 2024-09-05 14:10 [facility] NEGATIVE (missing) (missing) NITRITE,URINE 2024-09-05 14:10 [facility] NEGATIVE (missing) (missing) OCCULT BLOOD,URINE 2024-09-05 14:10 [facility] NEGATIVE (missing) (missing) HCG UR QUAL 2024-09-05 14:10 [facility] NEGATIVE (missing) INTERPRETIVE INFORMATION Urine hCG: Non- females: Negative females: Positive In some cases the level of hCG may be below the sensitivity of the test. Additionally, a very dilute urine specimen, may not contain sales representative metals levels of hCG. If is still suspected, follow up testing on a first morning urine specimen or serum hCG testing is recommended. GLUCOSE, URINE (UA) 2024-09-05 14:10 [facility] NEGATIVE mg/dl (missing) KETONES,URINE (UA) 2024-09-05 14:10 [facility] NEGATIVE mg/dl (missing) PROTEIN,URINE 2024-09-05 14:10 [facility] NEGATIVE mg/dl (missing) UR CULTURE IF IND 2024-09-05 14:10 [facility] NOT INDICATED (missing) (missing) URINE MICROSCOPIC INDICATED? 2024-09-05 14:10 [facility] NOT INDICATED (missing) (missing) BILIRUBIN,URINE 2024-09-05 14:10 [email or web address] SMALL (missing) Bilirubin can be influenced by color interference. Please correlate positive results with clinical presentation Result panel 3 BAND NEUTROPHILS % (MANUAL) 2024-09-05 14:23 [facility] 0 % (missing) BASOPHILS # (MANUAL) 2024-09-05 14:23 [facility] 0.3 10 3/ul (missing) BILIRUBIN,TOTAL 2024-09-05 14:23 [email or web address] 0.3 mg /dl As of November 2022 testing method has changed, this may include reference ranges. CREATININE 2024-09-05 14:23 [email or web address] 0.7 mg/dl As of November 2022 testing method has changed, this may include reference ranges. MONOCYTES # (MANUAL) 2024-09-05 14:23 [email or web address] 0.8 10 3/ul (missing) ABNORMAL LYMPHS % (MANUAL) 2024-09-05 14:23 [email or web address] 1 % (missing) METAMYELOCYTES % (MANUAL) 2024-09-05 14:23 [email or web address] 1 % (missing) EOSINOPHILS # (MANUAL) 2024-09-05 14:23 [facility] 1.1 10 3/ul (missing) ALBUMIN/GLOBULIN RATIO 2024-09-05 14:23 [facility] 1.5 (missing) (missing) TOTAL CELLS COUNTED 2024-09-05 14:23 [facility] 100 (missing) (missing) CHLORIDE 2024-09-05 14:23 [email or web address] 105 mmol/l As of November 2022 testing method has changed, this may include reference ranges. BUN - BLOOD UREA NITROGEN 2024-09-05 14:23 [facility] 11 mg/dl As of Nov testing method has changed, this may include reference ranges. RED CELL DISTRIBUTION WIDTH 2024-09-05 14:23 [facility] 12.8 % (missing) AST ASPARTATE AMINOTRANSFERASE 2024-09-05 14:23 [facility] 13 iu/l As of November 2022 testing method has changed, this may include reference ranges. WHITE BLOOD COUNT 2024-09-05 14:23 [facility] 13.4 x10 3/ul (missing) HGB - HEMOGLOBIN 2024-09-05 14:23 [facility] 13.9 g /dl (missing) SODIUM 2024-09-05 14:23 [facility] 136 mmol/l (missing) GLUCOSE 2024-09-05 14:23 [email or web address] 137 mg/dl As of November 2022 testing method has changed, this may include reference ranges. GLOBULIN 2024-09-05 14:23 [facility] 2.7 g/dl (missing) ALT ALANINE AMINOTRANSFERASE 2024-09-05 14:23 [email or web address] 22 iu/l As of November 2022 testing method has changed, this may include reference ranges. CARBON DIOXIDE - CO2 2024-09-05 14:23 [facility] 23 mmol/l As of November 2022 testing method has changed, this may include reference ranges. LIPASE 2024-09-05 14:23 [email or web address] 25 u/l As of November 2022 testing method has changed, this may include reference ranges. PLT - PLATELET COUNT 2024-09-05 14:23 [facility] 269 10 3/ul (missing) POTASSIUM 2024-09-05 14:23 [email or web address] 3.7 mmol/l As of November 2022 testing method has changed, this may include reference ranges. MEAN CORPUSCULAR HEMOGLOBIN 2024-09-05 14:23 [facility] 30.4 pg (missing) MEAN CORPUSCULAR HGB CONC 2024-09-05 14:23 [facility] 33.3 g/dl (missing) ALBUMIN 2024-09-05 14:23 [facility] 4.0 g/dl As of November 2022 testing method has changed, this may include reference ranges. RED BLOOD COUNT 2024-09-05 14:23 [facility] 4.57 10 6/ul (missing) HCT - HEMATOCRIT 2024-09-05 14:23 [facility] 41.8 % (missing) NEUTROPHILS # (MANUAL) 2024-09-05 14:23 [facility] 5.1 10 3/ul (missing) LYMPHOCYTES # (MANUAL) 2024-09-05 14:23 [facility] 6.0 10 3/ul (missing) TOTAL PROTEIN 2024-09-05 14:23 [facility] 6.7 g/dl As of November 2022 testing method has changed, this may include reference ranges. ALKALINE PHOSPHATASE 2024-09-05 14: [facility] 67 iu/l As of November 2022 testing method has changed, this may include reference ranges. ANION GAP 2024-09-05 14:23 [facility] 8.0 (missing ) (missing) CALCIUM 2024-09-05 14:23 [facility] 9.1 mg/dl As of November 2022 testing method has changed, this may include reference ranges. MEAN PLATELET VOLUME 2024-09-05 14:23 [facility] 9.6 fl (missing) GFR - MDRD 2024-09-05 14:23 [facility] 90 (bushra werner) Social History date description facility
[2024-09-22 22:36] LABS: BASOPHILS # (AUTO) 0.1 10^3/uL (0.0-0.1); BASOPHILS % (AUTO) 0.7 %; EOSINOPHILS # (AUTO) 0.5 10^3/uL (0.0-0.7); EOSINOPHILS % (AUTO) 3.9 %; HCT - HEMATOCRIT 41.9 % (37.0-47.0); HGB - HEMOGLOBIN 14.2 g/dL (12.0-16.0); LYMPHOCYTES # (AUTO) 3.2 10^3/uL (1.5-3.5); LYMPHOCYTES % (AUTO) 23.3 %; MEAN CORPUSCULAR HEMOGLOBIN 30.7 pg (27.0-31.0); MEAN CORPUSCULAR HGB CONC 33.9 g/dL (32.0-36.0); MEAN CORPUSCULAR VOLUME 90.7 fL (81.0-99.0); MEAN PLATELET VOLUME 9.7 fL (7.9-10.8); MONOCYTES # (AUTO) 0.8 10^3/uL (0.0-1.0); NEUTROPHILS % (AUTO) 65.7 %; PLT - PLATELET COUNT 250 10^3/uL (130-450); RED BLOOD COUNT 4.62 10^6/uL (4.20-5.40); RED CELL DISTRIBUTION WIDTH 13.3 % (12.0-15.0); WHITE BLOOD COUNT 13.7 x10^3/uL (4.8-10.8)
[2024-09-22 22:51] LABS: ALBUMIN 4.1 g/dL (3.2-5.5); ALBUMIN/GLOBULIN RATIO 1.6 (1.0-2.2); BILIRUBIN,TOTAL 0.5 mg/dL (0.2-1.0); CALCIUM 9.4 mg/dL (8.5-10.3); CREATININE 0.8 mg/dL (0.6-1.3); POTASSIUM 3.6 mmol/L (3.5-4.5); TOTAL PROTEIN 6.6 g/dL (6.4-8.9)
[2024-09-22] MEDS: HYDROmorphone 0.5 MG/0.5 ML SYRINGE IVP STA (22:52)
[2024-09-22] MEDS: PIPERACILLIN/TAZOBACTAM 4.5 GM in SODIUM CHLORIDE 0.9% MINIBAG 100 ML IV STA (22:53)
[2024-09-22] MEDS: METOCLOPRAMIDE 10 MG/2 ML VIAL IVP STA (22:53)
[2024-09-22] MEDS: DROPERIDOL 5 MG/2 ML VIAL IVP STA (23:15)
[2024-09-22] MEDS ORDERED: BENZOCAINE/MENTHOL LOZENGE MM PRN (23:25)
[2024-09-22] MEDS ORDERED: PHENOL THROAT SPRAY 177 ML MM PRN (23:25)
[2024-09-22] MEDS ORDERED: BENZONATATE 100 MG CAPSULE PO PRN (23:25)
--- NOTE | 2024-09-22 23:34 | HISTORY & PHYSICAL EXAMINATION ---
Chief Complaint Chief Complaint Chief Complaint: abd pain, nausea, vomiting, diarrhea History of Present Illness History of Present Illness HPI Comment/Other: pt with h/o h.pylori infection presents to hospital after dealing with gastroenteritis / colitis symptoms x 3-4 weeks. she has been on multiple rounds of abx - augmentin, levaquin, flagyl, but still no relief. was actually advised to stay to be admitted yesterday but could not as she has a 12 yr old child at home. she has had gi issues similar in the past and had colonscopy and endoscopy about 5 yr ago, where she was diagnosed with h.pylori infection. also had benign polyps removed. smokes 1 ppd x 25 yr. 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 denies any other drug usage. has loose watery stools, without blood or mucous. no dysuria or hematuria. no blood in vomitus. no chest pain or sob. lives with home with 2 sons. denies abd trauma. limited oral intake over past 3-4 wks. Review of Systems Status of ROS: 10 or more systems reviewed and unremarkable except as noted in history and below PFSH Active Problems All Active Problems (Updated 09/22/24 @ 22:32 by Abbey Avelar MD) Diverticulitis (Acute) Diverticulitis large intestine (Acute) Abdominal pain (Acute) Diverticulitis (Acute) Bronchitis (Acute) Vision loss (Acute) Constipation (Acute) Cough (Acute) Urinary tract infection (Acute) PVC (premature ventricular contraction) (Acute) Atypical chest pain (Acute) Acute asthma exacerbation (Acute) Strep pharyngitis (Acute) Nasal polyps (Acute) Abdominal pain (Acute) Asthma exacerbation (Acute) Otitis media (Acute) Asthma (Acute) Allergic reaction (Acute) Chest wall pain (Acute) Nasal polyposis (Acute) Cellulitis of left ankle (Acute) Cellulitis of right leg (Acute) Strep pharyngitis (Acute) Sty, internal (Acute) Pharyngitis (Acute) Upper respiratory infection (Acute) Medical History Medical History (Updated 09/22/24 @ 22:32 by Abbey Avelar MD) Chronic back pain Seasonal allergies Asthma HTN (hypertension) Surgical History Surgical History (Updated 09/21/24 @ 12:54 by Sonido Corrales RN) Hx of tubal ligation Hx of sinus surgery Social History Social History (Updated 05/06/25 @ 12:54 by Sonido Corrales RN) Smoking Status: Current every day smoker Number of Years Smoked: 25 How many cigarettes a day do you smoke? (20 cigarettes=1 Pk): 20 Do you dip or chew tobacco?: No Do you vape?: No Patient requests smoking cessation consult: No Initiate information on smoking cessation: No Living arrangement: At home Living Condition: With family Relationship: Level: Independent Do you feel safe in your home environment?: Yes Suffered physical, verbal, emotional, or financial abuse?: No History of Abuse: No ETOH Use: None Substance Use: cannabis (any form) Are you sexually active?: No POLST Patient has POLST: No Meds/Allgy Home Medications Ambulatory Orders Medication Instructions Recorded Confirmed albuterol sulfate 90 mcg/actuation 1 - 2 puff inhalati on Q4HR PRN 11/17/21 09/21/24 aerosol inhaler (Ventolin HFA) Shortness Of Air/Wheezi ng dupilumab 300 mg/2 mL subcutaneous 300 mg subcut Q14D 07/06/24 09/21/24 pen injector (Dupixent) lisinopril 10 mg tablet 10 mg PO BID 07/06/24 trazodone 50 mg tablet 100 mg PO HS 07/06/24 levofloxacin 500 mg tablet 500 mg PO DAILY #10 tabs 09/21/24 metronidazole 500 mg tablet 500 mg PO BID 10 days #20 tabs 09/12/24 09/21/24 pregabalin 100 mg capsule 100 mg PO BID 09/21/2409/21 Allergies Allergies Allergy/AdvReac Type Severity Reaction Status Date / Time aspirin Allergy Severe Anaphylaxis Verified 09/22/24 22:10 bee venom protein (honey bee) Allergy Severe Anaphylaxis Verified 09/22/24 22:10 NSAIDS (Non-Steroidal Allergy Severe Anaphylaxis Verified 09/22/24 22:10 Anti-Inflamma varenicline tartrate * (From Allergy Severe Blisters Verified 09/22/24 22:10 Chantix) metoprolol Allergy Intermediate Hives Verified 09/22/24 22:10 Exam Exam Vital Signs: Vital Signs x48h Temp Pulse Resp BP Pulse Ox 09/22/24 22:00 36.6 C 83 18 116/97 H 95 Constitutional normal general appearance and alert fatigued, uncomfortable, but cooperative with questions HENMT normocephalic and hearing grossly normal bilaterally Eyes EOMs intact bilaterally Neck/C-Spine visual inspection normal Respiratory no retractions and no use of accessory muscles details per ed charting Cardiovascular details per ed charting Gastrointestinal overall diffuse discomfort, soft Extremities normal to inspection Neurology lead burner II-XII intact and speech normal Psychiatry mental status grossly normal Conclusion/Plan Problem List (1) Diverticulitis: Lab Results 09/22/24 22:30 09/22/24 22:30 Other Other Results/Comments: pt with - - diverticulitis with h/o gastropathy h/o h.pylori infection --> check stool / breath test pt on immunosuppressant medicine, which can increase risk of gi infections zosyn, ivf, stool culture would benefit from gen surg evaluation if repeat colonoscopy is needed given extended timeframe of illness - gastroenteritis specifically diverticulitis (above) zofran, phenergan, ivf, probiotic, protonix stool studies supportive mgmt - tobacco abuse smokes 1ppd x 25 yr counseled to stop cigarette smoking correlated with gi disease, such has ibs, cancers, pud, etc f/u labs, cultures, replete electrolytes further orders per clinical course
[2024-09-22 23:49] LABS: CHOLESTEROL 165 mg/dL; HDL CHOLESTEROL 33 mg/dL; LDL CHOLESTEROL,CALCULATED 87 mg/dL; LDL/HDL RATIO 2.6 (<4.4); TRIGLYCERIDES 223 mg/dL; VLDL CHOLESTEROL 45 mg/dL
--- OUTSIDE RECORDS SUMMARY | 2024-09-22 23:52 | EXTERNAL MEDICAL SUMMARY RPT | Continuity of Care Document ---
Author Organization [facility] Address [address] [place] [id number] Phone Problems date description facility 2024-07-06 17:03 Bronchitis, not specified as ac [place] or chronic [facility] 2024-07-08 11:30 Bronchitis, not specified as ac [place] or chronic [facility] 2024-07-08 11:30 Cough, [...] A H1 2009- RESP PCR 2024-07-06 16[facility]missing) Influenza A H1-2009 detected by the [employer] RP2.1 Panel, a multiplexed nucleic acid test intended for the simultaneous qualitative detection and differentiation of nucleic acids from multiple viral and bacterial respiratory organisms. SARS-CoV-2 -RESP PCR PANEL 2024-07-06 16:08 [facility] NOT DETECTED (missing) A negative test result for this test indicates that SARS-CoV-2 RNA was not present in the specimen above the limit of detection. Testing performed on the [employer] RP2.1 Panel, a multiplexed nucleic acid repiratory [...] not be detected by nasopharyngeal specimen. CORONAVIRUS [id number] PCR 2024-07-06 16:08 [facility] NOT DETECTED (missing) Negative results in the setting ofa respiratory illness may be due to infection with pathogens not detected by this test, or lower respiratory tract infection that may not be detected by nasopharyngeal specimen. CORONAVIRUS [id number] PCR 2024-07-06 16:08 [facility] NOT DETECTED [...] very dilute urine specimen, may not contain senior account representative levels of hCG. If is still suspected, [...] NOT INDICATED (missing) (missing) BILIRUBIN,URINE 2024-09-05 14:10 [facility] SMALL (missing) Bilirubin can be influenced by color interference. Please correlate positive results with clinical presentation Result panel 3 BAND NEUTROPHILS % (MANUAL) 2024-09-05 14:23 [facility] 0 % (missing) BASOPHILS # (MANUAL) 2024-09-05 14:23 [facility] 0.3 10 3/ul (missing) BILIRUBIN,TOTAL 2024-09-05 14:23 [facility] 0.3 mg /dl As of November 2022 testing method has changed, this may include reference ranges. CREATININE 2024-09-05 14:23 [facility] 0.7 mg/dl As of November 2022 testing method has changed, this may include reference ranges. MONOCYTES # (MANUAL) 2024-09-05 14:23 [facility] 0.8 10 3/ul (missing) ABNORMAL LYMPHS % (MANUAL) 2024-09-05 14:23 [facility] 1 % (missing) METAMYELOCYTES % (MANUAL) 2024-09-05 14:23 [facility] 1 % (missing) EOSINOPHILS # (MANUAL) 2024-09-05 14:23 [facility] 1.1 10 3/ul (missing) ALBUMIN/GLOBULIN RATIO 2024-09-05 14:23 [facility] 1.5 (missing) (missing) TOTAL CELLS COUNTED 2024-09-05 14:23 [facility] 100 (missing) (missing) CHLORIDE 2024-09-05 14:23 [facility] 105 mmol/l As of November 2022 testing method has changed, this may include reference ranges. BUN - BLOOD UREA NITROGEN 2024-09-05 14:23 [facility] 11 mg/dl As of Nov testing method has changed, this may include reference ranges. RED CELL DISTRIBUTION WIDTH 2024-09-05 14:23 [facility] 12.8 % (missing) AST ASPARTATE AMINOTRANSFERASE 2024-09-05 14:23 [facility] 13 iu/l As of November 2022 testing method has changed, this may include reference ranges. WHITE BLOOD COUNT 2024-09-05 14:23 [facility] 13.4 x10 3/ul (missing) HGB - HEMOGLOBIN 2024-09-05 14:23 [facility] 13.9 g /dl (missing) SODIUM 2024-09-05 14:23 [facility] 136 mmol/l (missing) GLUCOSE 2024-09-05 14:23 [facility] 137 mg/dl As of November 2022 testing method has changed, this may include reference ranges. GLOBULIN 2024-09-05 14:23 [facility] 2.7 g/dl (missing) ALT ALANINE AMINOTRANSFERASE 2024-09-05 14:23 [facility] 22 iu/l As of November 2022 testing method has changed, this may include reference ranges. CARBON DIOXIDE - CO2 2024-09-05 14:23 [facility] 23 mmol/l As of November 2022 testing method has changed, this may include reference ranges. LIPASE 2024-09-05 14:23 [facility] 25 u/l As of November 2022 testing method has changed, this may include reference ranges. PLT - PLATELET COUNT 2024-09-05 14:23 [facility] 269 10 3/ul (missing) POTASSIUM 2024-09-05 14:23 [facility] 3.7 mmol/l As of November 2022 testing method has changed, this may include reference ranges. MEAN CORPUSCULAR HEMOGLOBIN 2024-09-05 14:23 [facility] 30.4 pg (missing) MEAN CORPUSCULAR HGB CONC 2024-09-05 14:23 [facility] 33.3 g/dl (missing) ALBUMIN 2024-09-05 14:23 [facility] 4.0 g/dl As of November 2022 testing method has changed, this may include reference ranges. RED BLOOD COUNT 2024-09-05 14:23 [facility] 4.57 10 6/ul (missing) HCT - HEMATOCRIT 2024-09-05 14:23 [facility] 41.8 % (missing) NEUTROPHILS # (MANUAL) 2024-09-05 14:23 [facility] 5.1 10 3/ul (missing) LYMPHOCYTES # (MANUAL) 2024-09-05 14:23 [facility] 6.0 10 3/ul (missing) TOTAL PROTEIN 2024-09-05 14:23 [facility] 6.7 g/dl As of November 2022 testing method has changed, this may include reference ranges. ALKALINE PHOSPHATASE 2024-09-05 14: [facility] 67 iu/l As of November 2022 testing method has changed, this may include reference ranges. ANION GAP 2024-09-05 14:23 [facility] 8.0 (missing ) (missing) CALCIUM 2024-09-05 14:23 [facility] 9.1 mg/dl As of November 2022 testing method has changed, this may include reference ranges. MEAN PLATELET VOLUME 2024-09-05 14:23 [facility] 9.6 fl (missing) GFR - MDRD 2024-09-05 14:23 [facility] 90 (bushra werner) Social History date description facility
[2024-09-23 00:01] LABS: THYROID STIMULATING HORMONE 1.73 uIU/mL (0.34-5.60)
[2024-09-23] MEDS ORDERED: ALBUTEROL NEB 2.5 MG/3 ML INH PRN (00:18)
[2024-09-23] MEDS: LACTATED RINGERS 1,000 ML IV SCH (00:39)
[2024-09-23] MEDS: DUPILUMAB 300 MG/2 ML SUBQ SCH (00:40)
[2024-09-23 03:37] LABS: BILIRUBIN,URINE NEGATIVE (NEGATIVE); CLARITY,URINE CLEAR (CLEAR); GLUCOSE, URINE (UA) NEGATIVE (NEGATIVE); KETONES,URINE (UA) 40 mg/dL (NEGATIVE); LEUKOCYTE ESTERASE, URINE NEGATIVE (NEGATIVE); NITRITE,URINE NEGATIVE (NEGATIVE); OCCULT BLOOD,URINE TRACE-LYSE (NEGATIVE); PROTEIN,URINE NEGATIVE (NEGATIVE); UROBILINOGEN,URINE 0.2 (NORMAL) E.U./dL (NORMAL)
[2024-09-23 03:42] LABS: BACTERIA,URINE Rare /HPF (None Seen); RBC,URINE 0-5 /HPF (0-5); SQUAMOUS EPITHELIAL CELL,UR FEW Squamous (<= Few); WBC,URINE 0-3 /HPF (0-5)
[2024-09-23] MEDS ORDERED: MORPHINE 10 MG/ML VIAL IVP PRN (04:18)
[2024-09-23] MEDS: ONDANSETRON 4 MG/2 ML VIAL IVP PRN ×2 (04:20→12:20)
[2024-09-23] MEDS: MORPHINE 2 MG/ML CARPUJECT IVP PRN ×2 (05:00→12:20)
[2024-09-23 05:31] LABS: BASOPHILS # (AUTO) 0.1 10^3/uL (0.0-0.1); BASOPHILS % (AUTO) 0.7 %; EOSINOPHILS # (AUTO) 0.7 10^3/uL (0.0-0.7); HCT - HEMATOCRIT 40.4 % (37.0-47.0); HGB - HEMOGLOBIN 13.3 g/dL (12.0-16.0); LYMPHOCYTES # (AUTO) 4.2 10^3/uL (1.5-3.5); LYMPHOCYTES % (AUTO) 34.8 %; MEAN CORPUSCULAR HEMOGLOBIN 30.3 pg (27.0-31.0); MEAN CORPUSCULAR HGB CONC 32.9 g/dL (32.0-36.0); MEAN PLATELET VOLUME 9.8 fL (7.9-10.8); MONOCYTES # (AUTO) 0.7 10^3/uL (0.0-1.0); MONOCYTES % (AUTO) 5.9 %; NEUTROPHILS # (AUTO) 6.2 10^3/uL (1.5-6.6); NEUTROPHILS % (AUTO) 52.3 %; PLT - PLATELET COUNT 235 10^3/uL (130-450); RED BLOOD COUNT 4.39 10^6/uL (4.20-5.40); RED CELL DISTRIBUTION WIDTH 13.2 % (12.0-15.0); WHITE BLOOD COUNT 11.9 x10^3/uL (4.8-10.8)
[2024-09-23 05:52] LABS: ALBUMIN 3.6 g/dL (3.2-5.5); ALBUMIN/GLOBULIN RATIO 1.6 (1.0-2.2); BILIRUBIN,TOTAL 0.5 mg/dL (0.2-1.0); CALCIUM 8.5 mg/dL (8.5-10.3); CREATININE 0.9 mg/dL (0.6-1.3); MAGNESIUM 1.7 mg/dL (1.7-2.3); POTASSIUM 3.7 mmol/L (3.5-4.5); TOTAL PROTEIN 5.8 g/dL (6.4-8.9)
[2024-09-23] MEDS: ACETAMINOPHEN 325 MG TABLET PO PRN (08:00)
[2024-09-23 08:19] LABS: ESTIMATED AVERAGE GLUCOSE 120 mg/dL (70-100); HEMOGLOBIN A1c% 5.8 % (4.27-6.07)
[2024-09-23 08:51] LABS: H. PYLORIS ANTIGEN STL NEGATIVE (Negative)
[2024-09-23] MEDS: PANTOPRAZOLE 40 MG VIAL IVP SCH (09:07)
[2024-09-23] MEDS: ENOXAPARIN 40 MG/0.4 ML SYRINGE SUBQ SCH (09:07)
--- NOTE | 2024-09-23 10:04 | PROVIDER PROGRESS NOTE ---
Subjective Prog Note Date Prog Note Date: 09/23/24 Prog Note Time: 10:04 Subjective Pt reports feeling: No change Subjective: Pt. c/o abd pain 7/10 and continues to have dry heaves during visit. This despite clear liquid diet. Last loose stool this AM. Pt. has two sons that live with her at home. Current Medications Current Medications Current Medications: Current Medications Generic Name Dose Route Start Last Admin Trade Name Freq PRN Reason Stop Dose Admin Acetaminophen 650 mg 09/22/24 23:25 09/23/24 08:00 Acetaminophen 325 Mg Tablet PO 650 mg Q6H PRN Administration pain, fever Albuterol 2.5 mg 09/23/24 00:18 Albuterol Neb 2.5 Mg/3 Ml INH RTQ4H PRN Shortness Of Air/Wheezing Benzonatate 100 mg 09/22/24 23:25 Benzonatate 100 Mg Capsule PO TID PRN Cough Enoxaparin Sodium 40 mg 09/23/24 09:00 09/23/24 09:07 Enoxaparin 40 Mg/0.4 Ml Syringe SUBQ 40 mg DAILY ARCHANA Administration Lactated Ringer's 1,000 mls @ 125 mls/hr 09/22/24 23:45 09/23/24 09:02 Lr IV 125 mls/hr .Q8H ARCHANA Administration Promethazine HCl 12.5 mg/ 50.5 mls @ 100 mls/hr 09/22/24 23:25 Sodium Chloride IV Q6H PRN Nausea / Vomiting Piperacillin Sod/Tazobactam 100 mls @ 25 mls/hr 09/24/24 02:00 Sod 3.375 gm/ Sodium Chloride IV Q8H ARCHANA Lactobacillus Rhamnosus 1 cap 09/23/24 09:00 Lactobacillus Rhamnosus Gg Capsule PO DAILY ARCHANA Lisinopril 10 mg 09/23/24 09:00 Lisinopril 5 Mg Tablet PO BID ARCHANA Morphine Sulfate 2 mg 09/23/24 04:56 09/23/24 09:03 Morphine 2 Mg/Ml Carpuject IVP 2 mg Q4H PRN Administration Pain Ondansetron HCl 4 mg 09/22/24 23:25 09/23/24 04:20 Ondansetron 4 Mg/2 Ml Vial IVP 4 mg Q8H PRN Administration Nausea / Vomiting Pantoprazole Sodium 40 mg 09/23/24 09:00 05/08/25 09:07 Pantoprazole 40 Mg Vial IVP 40 mg DAILY ARCHANA Administration Phenol/Menthol 1 sprays 09/22/24 23:25 Phenol Throat [place] 177 Ml MM Q4HR PRN Mouth Sore Pain Pregabalin 100 mg 09/23/24 09:00 Pregabalin 100 Mg Capsule PO BID ARCHANA Throat Lozenges 1 lozenge 09/22/24 23:25 Benzocaine/Menthol Lozenge MM Q2HR PRN Mouth Sore Pain Trazodone HCl 100 mg 09/23/24 21:00 Trazodone 50 Mg Tablet PO HS ARCHANA Objective Vital Signs/Intake & Output Reviewed Vital Signs: Yes Vital Signs: Vital Signs x48h Temp Pulse Resp BP Pulse Ox 09/23/24 08:24 37.0 C 86 16 145/84 H 97 09/23/24 04:31 36.4 C L 89 18 142/84 H 95 Intake & Output: Intake & Output 09/20/24 09/21/24 09/22/24 09/23/24 23:59 23:59 23:59 23:59 Intake Total 600 / 600 1520 / 1520 Output Total 151 / 151 Balance 600 / 600 1369 / 1369 Weight (kg) 121 kg 122 kg Objective General Appearance: positive Moderate distress; negative Anxious Eyes Bilateral: positive Normal inspection, PERRL, EOMI and No scleral icterus Neck: positive Nml inspection and Thyroid nml Respiratory: positive No respiratory distress and Breath sounds nml; negative Wheezes, Rales or Rhonchi Cardiovascular: positive Regular rate & rhythm, No murmur and No gallop; negative Systolic murmur or Diastolic murmur Abdomen: positive Tenderness (to superficial palpation in LLQ and epigastric region); negative Guarding, Rebound, Hepatomegaly, Splenomegaly or Abnml bowel sounds Back: positive Nml inspection; negative CVA tenderness (R) or CVA tenderness (L) Skin: positive Color nml and Warm Extremities: positive Non-tender, Nml appearance and No pedal edema Neurologic/Psychiatric: positive Oriented x3 and Motor nml Lab Results 09/23/24 05:14 09/23/24 05:14 Other Labs: Lab Results x24hrs 09/23/24 09/23/24 09/23/24 Range/Units 08:27 05:14 02:50 WBC 11.9 H (4.8-10.8) x10^3/uL RBC 4.39 (4.20-5.40) 10^6/uL Hgb 13.3 (12.0-16.0) g/dL Hct 40.4 (37.0-47.0) % MCV 92.0 (81.0-99.0) fL MCH 30.3 (27.0-31.0) pg MCHC 32.9 (32.0-36.0) g/dL RDW 13.2 (12.0-15.0) % Plt Count 235 (130-450) 10^3/uL MPV 9.8 (7.9-10.8) fL Neut # (Auto) 6.2 (1.5-6.6) 10^3/uL Lymph # (Auto) 4.2 H (1.5-3.5) 10^3/uL [place] # (Auto) 0.7 (0.0-1.0) 10^3/uL Eos # (Auto) 0.7 (0.0-0.7) 10^3/uL Baso # (Auto) 0.1 (0.0-0.1) 10^3/uL Absolute Nucleated RBC 0.00 x10^3/uL Nucleated RBC % 0.0 /100WBC Sodium 139 (135-145) mmol/L Potassium 3.7 (3.5-4.5) mmol/L Chloride 107 (101-111) mmol/L Carbon Dioxide 26 (21-32) mmol/L Anion Gap 6.0 (6-13) BUN 8 (6-20) mg/dL Creatinine 0.9 (0.6-1.3) mg/dL Estimated GFR (MDRD) 68 L (>89) Glucose 93 (74-104) mg/dL Estimat Average Glucose (70-100) mg/dL Hemoglobin A1c % (4.27-6.07) % Lactic Acid (0.5-2.2) mmol/L Calcium 8.5 (8.5-10.3) mg/dL Magnesium 1.7 (1.7-2.3) mg/dL Total Bilirubin 0.5 (0.2-1.0) mg/dL AST 35 (10-42) IU/L ALT 44 (10-60) IU/L Alkaline Phosphatase 50 (42-121) IU/L Total Protein 5.8 L (6.4-8.9) g/dL Albumin 3.6 (3.2-5.5) g/dL Globulin 2.2 (2.1-4.2) g/dL Albumin/Globulin Ratio 1.6 (1.0-2.2) Triglycerides mg/dL Cholesterol ( - 200) mg/dL LDL Cholesterol, Calc ( - 129) mg/dL VLDL Cholesterol mg/dL HDL Cholesterol (60 - ) mg/dL LDL/HDL Ratio (<4.4) Cholesterol/HDL Ratio (<4.4) Lipase (11-82) U/L TSH (0.34-5.60) uIU/mL Urine Color YELLOW Urine Clarity CLEAR (CLEAR) Urine pH 6.0 (5.0-7.5) PH Ur Specific [place] >=1.030 H (1.002-1.030) Urine Protein NEGATIVE (NEGATIVE) mg/dL Urine Glucose (UA) NEGATIVE (NEGATIVE) mg/dL Urine Ketones 40 H (NEGATIVE) mg/dL Urine Occult Blood TRACE-LYSE (NEGATIVE) Urine Nitrite NEGATIVE (NEGATIVE) Urine Bilirubin NEGATIVE (NEGATIVE) Urine Urobilinogen 0.2 (NORMAL) (NORMAL) E.U./dL Ur Leukocyte Esterase NEGATIVE (NEGATIVE) Urine RBC 0-5 (0-5) /HPF Urine WBC 0-3 (0-5) /HPF Ur Squamous Epith Cells FEW Squamous (<= Few) Urine Bacteria Rare (None Seen) /HPF Ur Microscopic Review INDICATED Urine Culture Comments NOT INDICATED Stool H. pylori Ag NEGATIVE (Negative) 09/22/24 09/22/24 Range/Units 22:38 22:30 WBC 13.7 H (4.8-10.8) x10^3/uL RBC 4.62 (4.20-5.40) 10^6/uL Hgb 14.2 (12.0-16.0) g/dL Hct 41.9 (37.0-47.0) % MCV 90.7 (81.0-99.0) fL MCH 30.7 (27.0-31.0) pg MCHC 33.9 (32.0-36.0) g/dL RDW 13.3 (12.0-15.0) % Plt Count 250 (130-450) 10^3/uL MPV 9.7 (7.9-10.8) fL Neut # (Auto) 9.0 H (1.5-6.6) 10^3/uL Lymph # (Auto) 3.2 (1.5-3.5) 10^3/uL [place] # (Auto) 0.8 (0.0-1.0) 10^3/uL Eos # (Auto) 0.5 (0.0-0.7) 10^3/uL Baso # (Auto) 0.1 (0.0-0.1) 10^3/uL Absolute Nucleated RBC 0.00 x10^3/uL Nucleated RBC % 0.0 /100WBC Sodium 138 (135-145) mmol/L Potassium 3.6 (3.5-4.5) mmol/L Chloride 107 (101-111) mmol/L Carbon Dioxide 20 L (21-32) mmol/L Anion Gap 11.0 (6-13) BUN 10 (6-20) mg/dL Creatinine 0.8 (0.6-1.3) mg/dL Estimated GFR (MDRD) 78 L (>89) Glucose 98 (74-104) mg/dL Estimat Average Glucose 120 H (70-100) mg/dL Hemoglobin A1c % 5.8 (4.27-6.07) % Lactic Acid 0.7 (0.5-2.2) mmol/L Calcium 9.4 (8.5-10.3) mg/dL Magnesium (1.7-2.3) mg/dL Total Bilirubin 0.5 (0.2-1.0) mg/dL AST 36 (10-42) IU/L ALT 48 (10-60) IU/L Alkaline Phosphatase 60 (42-121) IU/L Total Protein 6.6 (6.4-8.9) g/dL Albumin 4.1 (3.2-5.5) g/dL Globulin 2.5 (2.1-4.2) g/dL Albumin/Globulin Ratio 1.6 (1.0-2.2) Triglycerides 223 mg/dL Cholesterol 165 ( - 200) mg/dL LDL Cholesterol, Calc 87 ( - 129) mg/dL VLDL Cholesterol 45 mg/dL HDL Cholesterol 33 L (60 - ) mg/dL LDL/HDL Ratio 2.6 (<4.4) Cholesterol/HDL Ratio 5.0 (<4.4) Lipase 15 (11-82) U/L TSH 1.73 (0.34-5.60) uIU/mL Urine Color Urine Clarity (CLEAR) Urine pH (5.0-7.5) PH Ur Specific [place] (1.002-1.030) Urine Protein (NEGATIVE) mg/dL Urine Glucose (UA) (NEGATIVE) mg/dL Urine Ketones (NEGATIVE) mg/dL Urine Occult Blood (NEGATIVE) Urine Nitrite (NEGATIVE) Urine Bilirubin (NEGATIVE) Urine Urobilinogen (NORMAL) E.U./dL Ur Leukocyte Esterase (NEGATIVE) Urine RBC (0-5) /HPF Urine WBC (0-5) /HPF Ur Squamous Epith Cells (<= Few) Urine Bacteria (None Seen) /HPF Ur Microscopic Review Urine Culture Comments Stool H. pylori Ag (Negative) Diagnostic Imaging Diagnostic Imaging Results: positive Final report reviewed ABX Reporting Has patient been on IV antibiotics over the past 48 hours?: Yes Assessment/Plan Problem List (1) Diverticulitis: Impression: Failed outpatient oral antibiotics x 2 History of h. pylori, s/p treatment per pt. Immunosuppressive drug may be contributing Zosyn, IV fluids Stool culture, stool PCR studies pending H. pylori negative Supportive care for nausea Consult w/ Gen. surgery (2) Gastroenteritis, non-infectious: Impression: Zofran, phenergan, ivF Supportive care Qualifiers: Noninfectious gastroenteritis type: other noninfectious gastroenteritis Qualified Code(s): K52.89 - Other specified noninfective gastroenteritis and colitis (3) Tobacco abuse: Impression: Smokes 1ppdx for 25 years Smoking cessation counseling completed yesterday Nicotine patch requested, ordered
--- NOTE | 2024-09-23 11:33 | PHARMACY PROGRESS NOTE ---
Best Possible Medication History Admit Date and Time: 09/22/24 [id number] Home Medications Medication Instructions Recorded Confirmed Type albuterol sulfate 90 mcg/actuation 1 - 2 puff inhalati on Q4HR PRN 11/17/21 09/23/24 History aerosol inhaler (Ventolin HFA) Shortness Of Air/Wheezi ng dupilumab 300 mg/2 mL subcutaneous 300 mg subcut Q14D 07/06/24 09/23/24 History pen injector (Dupixent) lisinopril 10 mg tablet 10 mg PO BID 07/06/24 History trazodone 50 mg tablet 100 mg PO HS 07/06/24 History pregabalin 100 mg capsule 100 mg PO BID 09/21/2409/23 History diphenhydramine HCl 50 mg capsule 50 mg PO QPM PRN sle ep 09/23/24 09/23/24 History melatonin 3 mg tablet 3 mg PO HS PRN sleep 5 09/23/24 History Processed by: Pharmacy Medications reviewed in ED?: No Medication History completed: Yes Patient Interview: Completed Secondary Source(s): Pharmacy records and Insurance records [facility] Statement: As the person ultimately responsible for medication therapy, providers are able to order a medication from an existing home medication list in [facility] via the "Reconcile Routine" prior to Confirmation of that medication by ict support engineer. Such practice is discouraged except when the physician, in their clinical judgment, deems that a medical need exists for a medication without regard to previous use.
[2024-09-23] MEDS: PROMETHAZINE INJ 12.5 MG in SODIUM CHLORIDE 0.9% 50 ML IV PRN (11:57)
[2024-09-23] MEDS: NICOTINE 14 MG PATCH TOP SCH (12:21)
[2024-09-23] MEDS: lisinopriL 5 MG TABLET PO SCH (12:31)
[2024-09-23] MEDS: PREGABALIN 100 MG CAPSULE PO SCH (12:31)
[2024-09-23] MEDS: LACTOBACILLUS RHAMNOSUS GG CAPSULE PO SCH (12:31)
--- NOTE | 2024-09-23 12:37 | CONSULTATION NOTE ---
[facility] Active Problems All Active Problems (Updated 09/23/24 @ 11:12 by Jordyn Daly MD) Tobacco abuse (Acute) Gastroenteritis, non-infectious (Acute) Diverticulitis (Acute) Diverticulitis large intestine (Acute) Abdominal pain (Acute) Diverticulitis (Acute) Bronchitis (Acute) Vision loss (Acute) Constipation (Acute) Cough (Acute) Urinary tract infection (Acute) PVC (premature ventricular contraction) (Acute) Atypical chest pain (Acute) Acute asthma exacerbation (Acute) Strep pharyngitis (Acute) Nasal polyps (Acute) Abdominal pain (Acute) Asthma exacerbation (Acute) Otitis media (Acute) Asthma (Acute) Allergic reaction (Acute) Chest wall pain (Acute) Nasal polyposis (Acute) Cellulitis of left ankle (Acute) Cellulitis of right leg (Acute) Strep pharyngitis (Acute) Sty, internal (Acute) Pharyngitis (Acute) Upper respiratory infection (Acute) Medical History Medical History (Updated 09/23/24 @ 11:12 by Jordyn Daly MD) Chronic back pain Seasonal allergies Asthma HTN (hypertension) Surgical History Surgical History (Updated 09/21/24 @ 12:54 by Sonido Corrales RN) Hx of tubal ligation Hx of sinus surgery Social History Social History (Updated 09/21/24 @ 12:54 by Sonido Corrales RN) Smoking Status: Current every day smoker Number of Years Smoked: 25 How many cigarettes a day do you smoke? (20 cigarettes=1 Pk): 20 Do you dip or chew tobacco?: No Do you vape?: No Patient requests smoking cessation consult: No Initiate information on smoking cessation: No Living arrangement: At home Living Condition: With family Relationship: Level: Independent Do you feel safe in your home environment?: Yes Suffered physical, verbal, emotional, or financial abuse?: No History of Abuse: No ETOH Use: None Substance Use: cannabis (any form) Are you sexually active?: No POLST Patient has POLST: No Meds/Allgy Home Medications Ambulatory Orders Medication Instructions Recorded Confirmed albuterol sulfate 90 mcg/actuation 1 - 2 puff inhalati on Q4HR PRN 11/17/21 09/23/24 aerosol inhaler (Ventolin HFA) Shortness Of Air/Wheezi ng dupilumab 300 mg/2 mL subcutaneous 300 mg subcut Q14D 07/06/24 09/23/24 pen injector (Dupixent) lisinopril 10 mg tablet 10 mg PO BID 07/06/24 trazodone 50 mg tablet 100 mg PO HS 07/06/24 pregabalin 100 mg capsule 100 mg PO BID 09/21/2409/23 diphenhydramine HCl 50 mg capsule 50 mg PO QPM PRN sle ep 09/23/24 09/23/24 melatonin 3 mg tablet 3 mg PO HS PRN sleep 5 09/23/24 Allergies Allergies Allergy/AdvReac Type Severity Reaction Status Date / Time aspirin Allergy Severe Anaphylaxis Verified 09/22/24 22:10 bee venom protein (honey bee) Allergy Severe Anaphylaxis Verified 09/22/24 22:10 NSAIDS (Non-Steroidal Allergy Severe Anaphylaxis Verified 09/22/24 22:10 Anti-Inflamma varenicline tartrate * (From Allergy Severe Blisters Verified 09/22/24 22:10 Chantix) metoprolol Allergy Intermediate Hives Verified 09/22/24 22:10 Results Lab Results 09/23/24 05:14 09/23/24 05:14 Other Lab Results: Lab Results x24hrs 09/23/24 09/23/24 09/23/24 Range/Units 08:27 05:14 02:50 WBC 11.9 H (4.8-10.8) x10^3/uL RBC 4.39 (4.20-5.40) 10^6/uL Hgb 13.3 (12.0-16.0) g/dL Hct 40.4 (37.0-47.0) % MCV 92.0 (81.0-99.0) fL MCH 30.3 (27.0-31.0) pg MCHC 32.9 (32.0-36.0) g/dL RDW 13.2 (12.0-15.0) % Plt Count 235 (130-450) 10^3/uL MPV 9.8 (7.9-10.8) fL Neut # (Auto) 6.2 (1.5-6.6) 10^3/uL Lymph # (Auto) 4.2 H (1.5-3.5) 10^3/uL Tift # (Auto) 0.7 (0.0-1.0) 10^3/uL Eos # (Auto) 0.7 (0.0-0.7) 10^3/uL Baso # (Auto) 0.1 (0.0-0.1) 10^3/uL Absolute Nucleated RBC 0.00 x10^3/uL Nucleated RBC % 0.0 /100WBC Sodium 139 (135-145) mmol/L Potassium 3.7 (3.5-4.5) mmol/L Chloride 107 (101-111) mmol/L Carbon Dioxide 26 (21-32) mmol/L Anion Gap 6.0 (6-13) BUN 8 (6-20) mg/dL Creatinine 0.9 (0.6-1.3) mg/dL Estimated GFR (MDRD) 68 L (>89) Glucose 93 (74-104) mg/dL Estimat Average Glucose (70-100) mg/dL Hemoglobin A1c % (4.27-6.07) % Lactic Acid (0.5-2.2) mmol/L Calcium 8.5 (8.5-10.3) mg/dL Magnesium 1.7 (1.7-2.3) mg/dL Total Bilirubin 0.5 (0.2-1.0) mg/dL AST 35 (10-42) IU/L ALT 44 (10-60) IU/L Alkaline Phosphatase 50 (42-121) IU/L Total Protein 5.8 L (6.4-8.9) g/dL Albumin 3.6 (3.2-5.5) g/dL Globulin 2.2 (2.1-4.2) g/dL Albumin/Globulin Ratio 1.6 (1.0-2.2) Triglycerides mg/dL Cholesterol ( - 200) mg/dL LDL Cholesterol, Calc ( - 129) mg/dL VLDL Cholesterol mg/dL HDL Cholesterol (60 - ) mg/dL LDL/HDL Ratio (<4.4) Cholesterol/HDL Ratio (<4.4) Lipase (11-82) U/L TSH (0.34-5.60) uIU/mL Urine Color YELLOW Urine Clarity CLEAR (CLEAR) Urine pH 6.0 (5.0-7.5) PH Ur Specific [place] >=1.030 H (1.002-1.030) Urine Protein NEGATIVE (NEGATIVE) mg/dL Urine Glucose (UA) NEGATIVE (NEGATIVE) mg/dL Urine Ketones 40 H (NEGATIVE) mg/dL Urine Occult Blood TRACE-LYSE (NEGATIVE) Urine Nitrite NEGATIVE (NEGATIVE) Urine Bilirubin NEGATIVE (NEGATIVE) Urine Urobilinogen 0.2 (NORMAL) (NORMAL) E.U./dL Ur Leukocyte Esterase NEGATIVE (NEGATIVE) Urine RBC 0-5 (0-5) /HPF Urine WBC 0-3 (0-5) /HPF Ur Squamous Epith Cells FEW Squamous (<= Few) Urine Bacteria Rare (None Seen) /HPF Ur Microscopic Review INDICATED Urine Culture Comments NOT INDICATED Stool H. pylori Ag NEGATIVE (Negative) 09/22/24 09/22/24 Range/Units 22:38 22:30 WBC 13.7 H (4.8-10.8) x10^3/uL RBC 4.62 (4.20-5.40) 10^6/uL Hgb 14.2 (12.0-16.0) g/dL Hct 41.9 (37.0-47.0) % MCV 90.7 (81.0-99.0) fL MCH 30.7 (27.0-31.0) pg MCHC 33.9 (32.0-36.0) g/dL RDW 13.3 (12.0-15.0) % Plt Count 250 (130-450) 10^3/uL MPV 9.7 (7.9-10.8) fL Neut # (Auto) 9.0 H (1.5-6.6) 10^3/uL Lymph # (Auto) 3.2 (1.5-3.5) 10^3/uL Tift # (Auto) 0.8 (0.0-1.0) 10^3/uL Eos # (Auto) 0.5 (0.0-0.7) 10^3/uL Baso # (Auto) 0.1 (0.0-0.1) 10^3/uL Absolute Nucleated RBC 0.00 x10^3/uL Nucleated RBC % 0.0 /100WBC Sodium 138 (135-145) mmol/L Potassium 3.6 (3.5-4.5) mmol/L Chloride 107 (101-111) mmol/L Carbon Dioxide 20 L (21-32) mmol/L Anion Gap 11.0 (6-13) BUN 10 (6-20) mg/dL Creatinine 0.8 (0.6-1.3) mg/dL Estimated GFR (MDRD) 78 L (>89) Glucose 98 (74-104) mg/dL Estimat Average Glucose 120 H (70-100) mg/dL Hemoglobin A1c % 5.8 (4.27-6.07) % Lactic Acid 0.7 (0.5-2.2) mmol/L Calcium 9.4 (8.5-10.3) mg/dL Magnesium (1.7-2.3) mg/dL Total Bilirubin 0.5 (0.2-1.0) mg/dL AST 36 (10-42) IU/L ALT 48 (10-60) IU/L Alkaline Phosphatase 60 (42-121) IU/L Total Protein 6.6 (6.4-8.9) g/dL Albumin 4.1 (3.2-5.5) g/dL Globulin 2.5 (2.1-4.2) g/dL Albumin/Globulin Ratio 1.6 (1.0-2.2) Triglycerides 223 mg/dL Cholesterol 165 ( - 200) mg/dL LDL Cholesterol, Calc 87 ( - 129) mg/dL VLDL Cholesterol 45 mg/dL HDL Cholesterol 33 L (60 - ) mg/dL LDL/HDL Ratio 2.6 (<4.4) Cholesterol/HDL Ratio 5.0 (<4.4) Lipase 15 (11-82) U/L TSH 1.73 (0.34-5.60) uIU/mL Urine Color Urine Clarity (CLEAR) Urine pH (5.0-7.5) PH Ur Specific [place] (1.002-1.030) Urine Protein (NEGATIVE) mg/dL Urine Glucose (UA) (NEGATIVE) mg/dL Urine Ketones (NEGATIVE) mg/dL Urine Occult Blood (NEGATIVE) Urine Nitrite (NEGATIVE) Urine Bilirubin (NEGATIVE) Urine Urobilinogen (NORMAL) E.U./dL Ur Leukocyte Esterase (NEGATIVE) Urine RBC (0-5) /HPF Urine WBC (0-5) /HPF Ur Squamous Epith Cells (<= Few) Urine Bacteria (None Seen) /HPF Ur Microscopic Review Urine Culture Comments Stool H. pylori Ag (Negative) Exam Exam Vital Signs: Vital Signs x48h Temp Pulse Resp BP Pulse Ox 09/23/24 08:24 37.0 C 86 16 145/84 H 97 09/23/24 04:31 36.4 C L 89 18 142/84 H 95 Conclusion/Plan Problem List (1) Diverticulitis: (2) Gastroenteritis, non-infectious: Qualifiers: Noninfectious gastroenteritis type: other noninfectious gastroenteritis Qualified Code(s): K52.89 - Other specified noninfective gastroenteritis and colitis (3) Tobacco abuse: Lab Results 09/23/24 05:14 09/23/24 05:14 Other Other Results/Comments: General Surgery Consultation Note Assessment: 1) Recurrent LLQ pain presumably due to mild sigmoid diverticulitis. I am not certain this diagnosis is correct. 2) Consider infectious or inflammatory colitis in the differential diagnosis Recommendation: 1) Continue treatment for presumed sigmoid diverticulitis as an in-patient with IV antibiotics 2) If she responds to the treatment (decreased pain, decreased WBC), continue management as an out-patient with oral antibiotics for 10 days. Colonoscopy should then be arranged in 6 - 8 weeks. 3) Stool for enteric pathogens should be obtained as her symptoms could be due to colitis (diarrhea, abdominal cramping) 4) There is no indication for surgical intervention at this point in time. <><><><><><><><><><> Reason for Consultation I am requested by Dr. Daly to provide consultation for: abdominal pain Chief Complaint Nausea, vomiting, diarrhea, LLQ pain, failed improvement on out-patient antibiotic management OTILIO Javier is a 43 year old female who has been ill with LLQ pain, nausea, mucous diarrhea since 09/05/2024. She was seen in our ED and a CT scan mentioned possible early diverticulitis of the sigmoid colon and she was started on oral antibiotics. Her symptoms did not improve and she returned to the ED where another CT was performed which was similar to the original CT. She was discharged on a different strategy of oral antibiotics. She returned to the ED again on 09/22/24 with persistent symptoms. A third CT showed findings similar to the first. She was admitted to the hospital with presumed early diverticulitis unresponsive to oral antibiotics. In the hospital her symptoms continue and consist of diarrhea, nausea, and mild cramping LLQ discomfort not improved with evacuation of her bowel motions. She denies rectal bleeding. I am asked to assist in her evaluation Physical Examination Vital Signs: 145/84; 86; 16; 37 BMI: 41 GENERAL APPEARANCE: Normal development, normal grooming PSYCHIATRIC: AAO; Comfortable EYES: Pupils equal, round and reactive to light, sclera anicteric EARS, NOSE, MOUTH, THROAT: Hearing normal, Oral mucous membranes moist and without lesions; NECK: No crepitus, lymphadenopathy, or thyromegaly LUNGS: Clear to auscultation without wheezing; No use of accessory muscles to breathe CARDIOVASCULAR: Heart-NSR without murmurs; Peripheral edema absent ABD: Soft, not distended, mild tenderness to palpation in the LLQ but no peritoneal signs and no palpable mass LYMPHATIC: Neck, Axillae, Groin no palpable adenopathy EXTREMITIES: No clubbing, cyanosis, infections SKIN: Anicteric; No rashes, lesions, Ulcerations Labs See "Labs" section Antibiotics: Zosyn Imaging CT abd/pelvis 09/05, 09/12, 09/21 All images were personally reviewed by me for this encounter. I do not identify findings specific for diverticulitis. Given her progression of symptoms over the 16 days between the first and third CT scan, I would have expected to see image changes that correspond to worsening diverticulitis (Phlegmon, free air, abscess, loculated fluid) and there are none. Charlie Davis MD, [facility] General Surgery Service [phone]
[2024-09-23] MEDS: HYDROcod/ACETAM 5/325 MG TABLET PO PRN (15:10)
[2024-09-23] MEDS ORDERED: SODIUM CHLORIDE 0.9% 50 ML IV ONE (20:05)
[2024-09-23] MEDS: traZODone 50 MG TABLET PO SCH (20:18)
[2024-09-23] MEDS: PROCHLORPERAZINE 10 MG/2 ML VIAL IVP PRN (20:24)
[2024-09-24] MEDS: PIPERACILLIN/TAZOBACTAM 3.375 GM in SODIUM CHLORIDE 0.9% MINIBAG 100 ML IV SCH (01:51)
[2024-09-24 06:10] LABS: HGB - HEMOGLOBIN 12.6 g/dL (12.0-16.0); MEAN CORPUSCULAR HEMOGLOBIN 30.4 pg (27.0-31.0); MEAN CORPUSCULAR HGB CONC 33.2 g/dL (32.0-36.0); MEAN CORPUSCULAR VOLUME 91.6 fL (81.0-99.0); RED BLOOD COUNT 4.15 10^6/uL (4.20-5.40); RED CELL DISTRIBUTION WIDTH 13.2 % (12.0-15.0); WHITE BLOOD COUNT 9.3 x10^3/uL (4.8-10.8)
[2024-09-24 06:31] LABS: CALCIUM 8.4 mg/dL (8.5-10.3); CREATININE 0.8 mg/dL (0.6-1.3); MAGNESIUM 1.8 mg/dL (1.7-2.3); POTASSIUM 3.4 mmol/L (3.5-4.5)
[2024-09-24 07:09] LABS: ADENOVIRUS F 40/41 Not Detected (Not Detected); ASTROVIRUS Not Detected (Not Detected); C DIFFICILE TOXIN A/B Not Detected (Not Detected); CAMPYLOBACTER Not Detected (Not Detected); CRYPTOSPORIDIUM Not Detected (Not Detected); CYCLOSPORA CAYETANENSIS Not Detected (Not Detected); ENTAMOEBA HISTOLYTICA Not Detected (Not Detected); ENTEROAGGREGATIVE E COLI Not Detected (Not Detected); ENTEROPATHOGENIC E COLI Not Detected (Not Detected); ENTEROTOXIGENIC E COLI Not Detected (Not Detected); GIARDIA LAMBLIA Not Detected (Not Detected); NOROVIRUS GI/GII Not Detected (Not Detected); PLESIOMONAS SHIGELLOIDES Not Detected (Not Detected); ROTAVIRUS A Not Detected (Not Detected); SALMONELLA Not Detected (Not Detected); SAPOVIRUS Not Detected (Not Detected); SHIGA-TOXIN-PRODUCING E COLI Not Detected (Not Detected); SHIGELLA/ENTEROINVASIVE E COLI Not Detected (Not Detected); VIBRIO Not Detected (Not Detected); VIBRIO CHOLERAE Not Detected (Not Detected); YERSINIA ENTEROCOLITICA Not Detected (Not Detected)
[2024-09-24] MEDS: POTASSIUM CHLORIDE 20 MEQ TABLET PO ONE (08:05)
[2024-09-24] MEDS: SODIUM CHLORIDE 0.9% 1,000 ML IV SCH (09:32)
--- NOTE | 2024-09-24 10:25 | PROVIDER PROGRESS NOTE ---
Subjective Subjective Subjective: Patient states her abdominal pain is better. It does hurt with movement. She is still feeling some nausea. She has not had any episodes of emesis since yesterday. Will trial GI soft diet today, and see how she does. No fevers, no chills. She continues to have loose stools, but the frequency is decreasing. Current Medications Current Medications Current Medications: Current Medications Generic Name Dose Route Start Last Admin Trade Name Freq PRN Reason Stop Dose Admin Acetaminophen 650 mg 09/22/24 23:25 09/23/24 08:00 Acetaminophen 325 Mg Tablet PO 650 mg Q6H PRN Administration pain, fever Hydrocodone Bitart/Acetaminophen 1 tab 09/23/24 12:08 09/24/24 08:05 Hydrocod/Acetam 5/325 Mg Tablet PO 1 tab Q4HR PRN Administration Moderate Pain (Level 4-6) Albuterol 2.5 mg 09/23/24 00:18 Albuterol Neb 2.5 Mg/3 Ml INH RTQ4H PRN Shortness Of Air/Wheezing Benzonatate 100 mg 09/22/24 23:25 Benzonatate 100 Mg Capsule PO TID PRN Cough Enoxaparin Sodium 40 mg 09/23/24 09:00 09/24/24 08:04 Enoxaparin 40 Mg/0.4 Ml Syringe SUBQ Not Given DAILY ARCHANA Piperacillin Sod/Tazobactam 100 mls @ 25 mls/hr 09/24/24 02:00 09/24/24 09:32 Sod 3.375 gm/ Sodium Chloride IV 25 mls/hr Q8H ARCHANA Administration Sodium Chloride 1,000 mls @ 75 mls/hr 09/24/24 08:00 09/24/24 09:32 Normal Saline 0.9% IV 75 mls/hr .[id number] ARCHANA Administration Lactobacillus Rhamnosus 1 cap 09/23/24 09:00 09/24/24 08:05 Lactobacillus Rhamnosus Gg Capsule PO 1 cap DAILY ARCHANA Administration Lisinopril 10 mg 09/23/24 09:00 09/24/24 08:05 Lisinopril 5 Mg Tablet PO 10 mg BID ARCHANA Administration Morphine Sulfate 2 mg 09/23/24 12:08 09/24/24 01:34 Morphine 2 Mg/Ml Carpuject IVP 2 mg Q3HR PRN Administration Severe Pain (Level 7-10) Nicotine 1 patch 05/08/25 11:00 09/24/24 08:04 Nicotine 14 Mg Patch TOP 1 patch DAILY ARCHANA Administration Ondansetron HCl 4 mg 09/23/24 12:07 09/24/24 08:04 Ondansetron 4 Mg/2 Ml Vial IVP 4 mg Q4HR PRN Administration Nausea / Vomiting Pantoprazole Sodium 40 mg 09/23/24 09:00 09/24/24 08:03 Pantoprazole 40 Mg Vial IVP 40 mg DAILY ARCHANA Administration Phenol/Menthol 1 sprays 09/22/24 23:25 Phenol Throat [place] 177 Ml MM Q4HR PRN Mouth Sore Pain Pregabalin 100 mg 09/23/24 09:00 09/24/24 08:05 Pregabalin 100 Mg Capsule PO 100 mg BID ARCHANA Administration Prochlorperazine Edisylate 10 mg 09/23/24 20:13 09/23/24 20:24 Prochlorperazine 10 Mg/2 Ml Vial IVP 10 mg Q6HR PRN Administration Nausea / Vomiting Throat Lozenges 1 lozenge 09/22/24 23:25 Benzocaine/Menthol Lozenge MM Q2HR PRN Mouth Sore Pain Trazodone HCl 100 mg 09/23/24 21:00 09/23/24 20:18 Trazodone 50 Mg Tablet PO 100 mg HS ARCHANA Administration Objective Vital Signs/Intake & Output Reviewed Vital Signs: Yes Vital Signs: Vital Signs x48h Temp Pulse Resp BP Pulse Ox 09/24/24 07:48 98.2 F 65 18 127/75 96 09/24/24 05:00 98.1 F 72 15 136/81 H 96 Intake & Output: Intake & Output 09/21/24 09/22/24 09/23/24 09/24/24 23:59 23:59 23:59 23:59 Intake Total 600 / 600 2558 / 2558 2548 / 2548 Output Total 151 / 151 Balance 600 / 600 2407 / 2407 2548 / 2548 Weight (kg) 121 kg 122 kg Objective General Appearance: positive No acute distress; negative Anxious Eyes Bilateral: positive Normal inspection, PERRL, EOMI and No scleral icterus ENT: positive ENT inspection nml, Pharynx nml and No signs of dehydration Neck: positive Nml inspection and Thyroid nml Respiratory: positive No respiratory distress and Breath sounds nml; negative Wheezes, Rales or Rhonchi Cardiovascular: positive Regular rate & rhythm, No murmur and No gallop; negative Systolic murmur or Diastolic murmur Abdomen: positive Tenderness (mild tenderness in LLQ and epigastric region); negative Guarding, Rebound, Hepatomegaly, Splenomegaly or Abnml bowel sounds Back: positive Nml inspection; negative CVA tenderness (R) or CVA tenderness (L) Skin: positive Color nml and Warm Extremities: positive Non-tender, Nml appearance and No pedal edema Neurologic/Psychiatric: positive Oriented x3 and Motor nml Lab Results 09/24/24 05:28 09/24/24 05:28 Other Labs: Lab Results x24hrs 09/24/24 09/23/24 Range/Units 05:28 08:27 WBC 9.3 (4.8-10.8) x10^3/uL RBC 4.15 L (4.20-5.40) 10^6/uL Hgb 12.6 (12.0-16.0) g/dL Hct 38.0 (37.0-47.0) % MCV 91.6 (81.0-99.0) fL MCH 30.4 (27.0-31.0) pg MCHC 33.2 (32.0-36.0) g/dL RDW 13.2 (12.0-15.0) % Plt Count 214 (130-450) 10^3/uL MPV 10.0 (7.9-10.8) fL Sodium 139 (135-145) mmol/L Potassium 3.4 L (3.5-4.5) mmol/L Chloride 107 (101-111) mmol/L Carbon Dioxide 24 (21-32) mmol/L Anion Gap 8.0 (6-13) BUN 5 L (6-20) mg/dL Creatinine 0.8 (0.6-1.3) mg/dL Estimated GFR (MDRD) 78 L (>89) Glucose 84 (74-104) mg/dL Calcium 8.4 L (8.5-10.3) mg/dL Magnesium 1.8 (1.7-2.3) mg/dL Stl C. cayetanensis PCR Not Detected (Not Detected) Stool Rotavirus A PCR Not Detected (Not Detected) Stl Adenov F 40/41 PCR Not Detected (Not Detected) Stool Astrovirus (PCR) Not Detected (Not Detected) Stool Campylobacter PCR Not Detected (Not Detected) Stl C. diff Tox A/B PCR Not Detected (Not Detected) Stool Cryptosporidium PCR Not Detected (Not Detected) Stl Sh Tox Pr E STEC PCR Not Detected (Not Detected) Stool E coli O157 PCR Not applicable (Not Detected) Stl Enterotoxigenic E PCR Not Detected (Not Detected) Stool EPEC (PCR) Not Detected (Not Detected) Stl E. histolytica PCR Not Detected (Not Detected) Stool Giardia Lamblia PCR Not Detected (Not Detected) Stl P. shigelloides PCR Not Detected (Not Detected) Stool Salmonella PCR Not Detected (Not Detected) Stool Sapovirus (PCR) Not Detected (Not Detected) Stl Shigella/EIEC PCR Not Detected (Not Detected) St Y.enterocolitica PCR Not Detected (Not Detected) Stool Vibrio (PCR) Not Detected (Not Detected) Stl Vibrio cholerae PCR Not Detected (Not Detected) Stl Enteroaggr Ecoli PCR Not Detected (Not Detected) Stl Norovirus GI/GII PCR Not Detected (Not Detected) Diagnostic Imaging Diagnostic Imaging Results: positive Final report reviewed ABX Reporting Has patient been on IV antibiotics over the past 48 hours?: Yes Assessment/Plan Problem List (1) Diverticulitis: Impression: Patient with left lower quadrant pain, nausea, vomiting, failure to tolerate p.o. intake. Repeat CT abdomen continue to show acute diverticulitis. No microperforation or abscess noted. Patient has now failed 2 courses of outpatient oral antibiotics. Continue Zosyn at this time. Patient is feeling better. Leukocytosis has resolved. Will trial GI soft diet, continue IV antibiotics at this time. Likely discharge tomorrow if she has no nausea, no vomiting, and is able to tolerate p.o. intake. General Surgery was consulted, appreciate recommendations. (2) Gastroenteritis, non-infectious: Impression: Stool studies negative for any acute infection. H. pylori antigen is also negative. Her diarrhea is improving. Continue IV fluids today. Continue Zofran, Compazine as needed. Qualifiers: Noninfectious gastroenteritis type: other noninfectious gastroenteritis Qualified Code(s): K52.89 - Other specified noninfective gastroenteritis and colitis (3) Tobacco abuse: Impression: Patient has extensive tobacco use history. Advised on smoking cessation. Continue nicotine patch.
--- NOTE | 2024-09-24 12:25 | PROVIDER PROGRESS NOTE ---
Progress Note Progress Note Progress Note: General Surgery Progress Note S: Feels a little better. Still passing mushy stools. Abdominal pain located LLQ and over symphysis pubis. O: VS 127/75; P 65; RR 18; T 36.8 AAO; Sitting in bed eating solid food for lunch Abdomen is soft, not distended. Minimal palpable tenderness elicited in LLQ and hypogastric region. Labs: H&H 12.6/38; WBC 9.3; K 3.4; Na 139; Cr 0.8; Glu 84 A: Clinically improved P: Continue as ordered. Charlie Davis MD, FACS General Surgery Service
[2024-09-24 13:19] LABS: CALCIUM 8.9 mg/dL (8.5-10.3); CREATININE 0.9 mg/dL (0.6-1.3); POTASSIUM 3.8 mmol/L (3.5-4.5)
[2024-09-25 05:56] LABS: HCT - HEMATOCRIT 38.4 % (37.0-47.0); HGB - HEMOGLOBIN 12.7 g/dL (12.0-16.0); MEAN CORPUSCULAR HEMOGLOBIN 30.5 pg (27.0-31.0); MEAN CORPUSCULAR HGB CONC 33.1 g/dL (32.0-36.0); MEAN CORPUSCULAR VOLUME 92.3 fL (81.0-99.0); MEAN PLATELET VOLUME 9.6 fL (7.9-10.8); RED BLOOD COUNT 4.16 10^6/uL (4.20-5.40); RED CELL DISTRIBUTION WIDTH 13.2 % (12.0-15.0); WHITE BLOOD COUNT 8.4 x10^3/uL (4.8-10.8)
[2024-09-25 06:07] LABS: MAGNESIUM 1.9 mg/dL (1.7-2.3)
[2024-09-25 06:13] LABS: CALCIUM 8.5 mg/dL (8.5-10.3); POTASSIUM 4.3 mmol/L (3.5-4.5)
--- NOTE | 2024-09-25 07:40 | PROVIDER PROGRESS NOTE ---
Progress Note Progress Note Progress Note: General Surgery Progress Note S: Feels much better. Eating solids. Passing mushy stools O: VSS, afeb; Abd is soft, not distended, minimal to no tenderness to palpation WBC 8.4; H&H 38.4/12.7 A: Resolved LLQ discomfort. Presumed due to early acute diverticulitis Recommendations: 1) Once discharged, continue Augmentin for a total of 7 days of antibiotics 2) High fiber diet (Metamucil or Citrucel daily) 3) Should probably have colonoscopy in 6-8 weeks. She tells me she has an appointment for this but is awaiting insurance approval 4) The General Surgery Service will sign off today. Please do not hesitate to contact us if you have further questions or concerns or if you wish to have us continue to follow this patient with you. Charlie Davis MD, FACS General Surgery Service
[2024-09-25 08:19] VITALS: BP 133/79; TEMP 97.9; O2SAT 98
--- NOTE | 2024-09-25 10:09 | Discharge Summary ---
"Discharge Summary Admit Date: 09/22/24 Discharge Date: 09/25/24 Discharging Provider: Dr. Jordyn Daly Primary Care Provider: Dr. Terence Can Code Status: Attempt Resuscitation Discharge Facility Name: Home DIAGNOSES Admission Diagnoses: Diverticulitis Gastroenteritis Tobacco use Discharge Diagnoses with Status of Each Condition: Diverticulitispatient with left lower quadrant pain, nausea, vomiting, failure to tolerate p.o. intake. Failed outpatient antibiotics x 2. Received Zosyn here. Diet was advanced from clears to fulls to GI soft diet. Tolerated it well. General surgery following, recommend outpatient colonoscopy, will follow- up outpatient. Gastroenteritisresolved. Tobacco useencourage cessation. HPI History of Present Illness: Per Dr. Vera: pt with h/o h.pylori infection presents to hospital after dealing with gastroenteritis / colitis symptoms x 3-4 weeks. she has been on multiple rounds of abx - augmentin, levaquin, flagyl, but still no relief. was actually advised to stay to be admitted yesterday but could not as she has a 12 yr old child at home. she has had gi issues similar in the past and had colonscopy and endoscopy about 5 yr ago, where she was diagnosed with h.pylori infection. also had benign polyps removed. smokes 1 ppd x 25 yr. 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 denies any other drug usage. has loose watery stools, without blood or mucous. no dysuria or hematuria. no blood in vomitus. no chest pain or sob. lives with home with 2 sons. denies abd trauma. limited oral intake over past 3-4 wks. CONSULTS | PROCEDURES Consultations: General surgery Procedures: - HOSPITAL COURSE Hospital Course: Patient is a 43-year-old female with a history of tobacco use who presented for recurrent abdominal pain. She has had two episodes of diverticulitis that brought her to the emergency room, where she was discharged on oral antibiotics. But she returns with continued pain and nausea and vomiting. She was started on IV Zosyn, IV fluids, as well as antiemetics and pain control. Her diet was slowly advanced from clear liquids to full liquids to GI soft diet. Will be discharging her home on Augmentin to finish off a 7-day course. General surgery was consulted, they recommended outpatient colonoscopy in the next few weeks. She was advised to follow-up with her primary care provider. She was advised extensively to finish her antibiotic course. She was deemed stable for discharge home. ALLERGIES Allergies Allergy/AdvReac Type Severity Reaction Status Date / Time aspirin Allergy Severe Anaphylaxis Verified 09/22/24 22:10 bee venom protein (honey bee) Allergy Severe Anaphylaxis Verified 09/22/24 22:10 NSAIDS (Non-Steroidal Allergy Severe Anaphylaxis Verified 09/22/24 22:10 Anti-Inflamma varenicline tartrate * (From Allergy Severe Blisters Verified 09/22/24 22:10 Chantix) metoprolol Allergy Intermediate Hives Verified 09/22/24 22:10 MEDICATIONS Ambulatory Orders Medication Instructions Recorded Confirmed albuterol sulfate 90 mcg/actuation 1 - 2 puff inhalati on Q4HR PRN 11/17/21 09/23/24 aerosol inhaler (Ventolin HFA) Shortness Of Air/Wheezi ng dupilumab 300 mg/2 mL subcutaneous 300 mg subcut Q14D 07/06/24 09/23/24 pen injector ([facility] [place]) lisinopril 10 mg tablet 10 mg PO BID 07/06/24 trazodone 50 mg tablet 100 mg PO HS 07/06/24 pregabalin 100 mg capsule 100 mg PO BID 09/21/2409/23 diphenhydramine HCl 50 mg capsule 50 mg PO QPM PRN sle ep 09/23/24 09/23/24 melatonin 3 mg tablet 3 mg PO HS PRN sleep 5 09/23/24 Lactobacillus rhamnosus GG 10 1 cap PO DAILY #30 caps 09/25/24 billion cell capsule (Culturelle) amoxicillin 875 mg-potassium 1 tab PO BID 4 days #8 ta bs 09/25/24 clavulanate 125 mg tablet hydrocodone 5 mg-acetaminophen 325 1 tab PO Q4HR PRN M oderate Pain 09/25/24 mg tablet (Level 4-6) #12 tabs ondansetron HCl 4 mg tablet 4 mg PO Q8H #20 tabs 09/25 PHYSICAL EXAM AT DISCHARGE Vital Signs: Vital Signs x48h Temp Pulse Resp BP Pulse Ox 09/25/24 08:18 97.9 F 61 18 133/79 H 98 General Appearance: positive No acute distress and Alert; negative Anxious Eyes Bilateral: positive Normal inspection, PERRL and EOMI ENT: positive ENT inspection nml, Pharynx nml and No signs of dehydration Neck: positive Nml inspection, Thyroid nml, No JVD and Trachea midline Respiratory: positive Chest non-tender, No respiratory distress and Breath sounds nml; negative Wheezes, Rales or Rhonchi Cardiovascular: positive Regular rate & rhythm, No murmur and No gallop; negative Irregularly irregular, Tachycardia or Bradycardia Abdomen: positive Non-tender and No distention; negative Guarding, Hepatomegaly or Splenomegaly Back: positive Nml inspection; negative CVA tenderness (R) or CVA tenderness (L) Skin: positive Color nml, No rash, Warm and Dry Extremities: positive Non-tender, Full ROM, Nml appearance and No pedal edema Neurologic/Psychiatric: positive Oriented x3, Motor nml, Sensation nml and Mood/affect nml LABS 09/25/24 05:51 09/25/24 05:51 DIAGNOSTIC IMAGING Diagnostic Imaging Results: Final report reviewed FOLLOW UP Follow Up: Follow up with primary care provider. Follow up with general surgery. TIME SPENT Time Spent in Discharge (Minutes): 35 Discharge Plan Discharge Patient Disposition: 01 Home, Self Care Condition: Fair Prescriptions: New hydrocodone-acetaminophen 5-325 mg Tablet 1 tab PO Q4HR PRN (Reason: Moderate Pain (Level 4-6)) Qty: 12 0RF Culturelle 10 billion cell Capsule 1 cap PO DAILY Qty: 30 0RF amoxicillin-pot clavulanate 875-125 mg tablet 1 tab PO BID 4 Days Qty: 8 0RF ondansetron HCl 4 mg tablet 4 mg PO Q8H Qty: 20 0RF Continued albuterol sulfate [Ventolin HFA] 200 PUFFS/18 GM HFA aerosol inhaler 1 - 2 puff inhalation Q4HR PRN (Reason: Shortness Of Air/Wheezing) trazodone 50 mg tablet 100 mg PO HS Patient Comments: TAKE 2 TABLETS BY MOUTH ONCE DAILY Dupixent Pen 300 mg/2 mL pen injector 300 mg SUBCUT Q14D lisinopril 10 mg tablet 10 mg PO BID pregabalin 100 mg capsule 100 mg PO BID Patient Comments: TAKE 1 CAPSULE BY MOUTH TWICE DAILY melatonin 3 mg tablet 3 mg PO HS PRN (Reason: sleep) Patient Comments: pt stated she takes only asn with no regularity diphenhydramine HCl 50 mg capsule 50 mg PO QPM PRN (Reason: sleep) Activity Restrictions: Activity as Tolerated Diet: Soft Health Concerns: You came in because you were having pain in your stomach, as well as nausea and vomiting. Your CT scan demonstrates some acute diverticulitis. We started you on IV antibiotics, and gradually increased your diet from clears to full liquid to a soft diet. You are tolerating it well. I would like you to continue an antibiotic course to completion. I am also sending you with a few pain pills, and nausea pills to take only if you really need them. Please continue with the soft diet on discharge, I have attached a handout outlining certain foods that you should eat. We talked about the importance of follow-up including with your primary care provider, as well as with a general surgeon for a repeat colonoscopy in a few weeks. We are glad you are feeling better, thanks for letting us take care of you. Print Language: Irish Patient Instructions: Diet Soft Dc, ED Diverticulitis Stand Alone Forms: PCP List Follow-up Care: Charlie Davis MD [Provider Admit Priv/Credential] - 4 Weeks Terence Can MD [Primary Care Provider] -"
== END 2024-09-25 11:55 | disposition home or self-care (01) | DRG 392 ==
LOC: EDBD → ED 22:00 → MS3 23:46
PROVIDERS: ADMIT Student in an Organized Health Care Education/Training Program; ATTEND Student in an Organized Health Care Education/Training Program
DX: Z79.899 Other long term (current) drug therapy; I10 Essential (primary) hypertension; J45.909 Unspecified asthma, uncomplicated; K57.32 Diverticulitis of large intestine without perforation or abscess without bleeding; F17.210 Nicotine dependence, cigarettes, uncomplicated; K52.9 Noninfective gastroenteritis and colitis, unspecified; Z86.19 Personal history of other infectious and parasitic diseases